=== PATIENT | female | born 1970 | race Caucasian/White ===

== ENCOUNTER 2017-02-27 21:14 | Outpatient (CLI) | payer MEDICAID | END 2017-02-27 21:15 | disposition critical access hospital (66) | LOC: EMS 21:14 | PROVIDERS: ATTEND Surgery | DX: R10.12 Left upper quadrant pain (principal) | CPT/HCPCS: A0425; A0429 ==

== ENCOUNTER 2017-02-27 21:50 | Emergency (ER) | payer MEDICAID ==
[2017-02-27 22:27] LABS: BILIRUBIN,URINE NEGATIVE (NEGATIVE); PH,URINE 5.5 PH (5.0-7.5)
[2017-02-27 22:28] LABS: ALBUMIN/GLOBULIN RATIO 1.2 (1.0-2.2); BILIRUBIN,TOTAL 0.3 mg/dL (0.2-1.0); CALCIUM 9.2 mg/dL (8.5-10.3); CREATININE 0.8 mg/dL (0.4-1.0); POTASSIUM 3.8 mmol/L (3.5-5.0); TOTAL PROTEIN 7.1 g/dL (6.7-8.2)
[2017-02-27 22:31] LABS: UA CHARGE (STRIP ONLY) YES; UR CULTURE IF IND NOT INDICATED
--- NOTE | 2017-02-27 23:11 | XRAY Preliminary Report ---
Exam: XR Chest 2 View PA/LAT IMPRESSION: Normal 2-view chest radiography. [facility] SITE ID: [id number]
--- NOTE | 2017-02-27 23:14 | XRAY Report ---
EXAM: CHEST RADIOGRAPHY EXAM DATE: 02/27/2017 10:52 PM. CLINICAL HISTORY: Left sided chest pain. COMPARISON: 09/03/2014 TECHNIQUE: 2 views. FINDINGS: Lungs/Pleura: No focal opacities evident. No pleural effusion. No pneumothorax. Normal volumes. Mediastinum: Heart and mediastinal contours are unremarkable. Other: None. IMPRESSION: Normal 2-view chest radiography. [facility] Referring Provider Line: [phone] SITE ID: [id number]
[2017-02-27 23:41] LABS: BASOPHILS # (AUTO) 0.1 10^3/uL (0.0-0.1); EOSINOPHILS # (AUTO) 0.2 10^3/uL (0.0-0.7); EOSINOPHILS % (AUTO) 2.1 %; HCT - HEMATOCRIT 34.9 % (37.0-47.0); HGB - HEMOGLOBIN 11.9 g/dL (12.0-16.0); LYMPHOCYTES # (AUTO) 2.7 10^3/uL (1.5-3.5); MEAN CORPUSCULAR HEMOGLOBIN 33.6 pg (27.0-31.0); MEAN CORPUSCULAR HGB CONC 34.1 g/dL (32.0-36.0); MEAN CORPUSCULAR VOLUME 98.7 fL (81.0-99.0); MEAN PLATELET VOLUME 8.4 fL (7.9-10.8); MONOCYTES # (AUTO) 0.5 10^3/uL (0.0-1.0); MONOCYTES % (AUTO) 5.9 %; NEUTROPHILS # (AUTO) 5.7 10^3/uL (1.5-6.6); NUCLEATED RED BLOOD CELLS AUTO 0.1 /100WBC; RED BLOOD COUNT 3.54 10^6/uL (4.20-5.40); RED CELL DISTRIBUTION WIDTH 13.4 % (12.0-15.0); UNCORRECTED WHITE BLOOD COUNT 9.3 x10^3/uL; WHITE BLOOD COUNT 9.3 x10^3/uL (4.8-10.8)
--- NOTE | 2017-02-28 00:03 | ED Physician Documentation ---
PD HPI ABD PAIN - Stated complaint Stated Complaint: CHEST/ABD PAIN - Chief complaint Chief Complaint: Abd Pain - History obtained from History obtained from: Patient, EMS - History of Present Illness Timing - onset: How many hours ago (2) Timing - details: Abrupt onset Quality: Sharp, Stabbing Location: LUQ Associated symptoms: No: Fever, Nausea, Vomiting, Diarrhea, Constipation, Dysuria, Hematuria, Chest pain, Near syncope / syncope Similar symptoms before: Has not had sx before Recently seen: Not recently seen - Additional information Additional information: Patient is a 47 year old female with a history of alcohol abuse who is presenting to the emergency department for luq abdominal pain. Patient states that it started at rest. she reports that it was sharp in nature. Patient reports that she called ems and when she got in the ambulance the pain had resolved. Upon initial evaluation in the emergency department patient was asymptomatic. Review of Systems Constitutional: denies: Fever, Chills Eyes: denies: Loss of vision, Decreased vision Ears: denies: Ear pain, Drainage/discharge Nose: denies: Rhinorrhea / runny nose, Congestion Throat: denies: Oral lesions / sores, Sore throat Cardiac: denies: Chest pain / pressure, Palpitations, Calf pain Respiratory: denies: Dyspnea, Cough, Wheezing GI: reports: Abdominal Pain : denies: Dysuria, Frequency, Unable to Void, Hematuria, Discharge, Vaginal bleeding Skin: denies: Rash, Lesions Musculoskeletal: denies: Neck pain, Back pain, Extremity pain Neurologic: denies: Generalized weakness, Focal weakness, Numbness, Difficulty speaking Psychiatric: denies: Depressed, Suicidal Immunocompromised: denies: Immunocompromised PD PAST MEDICAL HISTORY - Past Medical History Past Medical History: Yes Cardiovascular: Hypertension, High cholesterol Respiratory: None Endocrine/Autoimmune: Type 2 diabetes GI: GERD : None HEENT: None Psych: Depression, Anxiety Musculoskeletal: None Derm: None - Past Surgical History 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 HEENT: Rhinoplasty - Present Medications Home Medications: Ambulatory Orders Medication Instructions Recorded Confirmed Pantoprazole Sodium [Protonix] 40 mg PO DAILY 03/23/14 02/27/17 LORazepam [Ativan] 1 mg PO ONCE PRN 09/03/14 02/27/17 busPIRone [Buspar] 10 mg PO BID 09/03/14 02/27/17 Losartan [Cozaar] 100 mg PO DAILY 12/24/15 02/27/17 Metformin HCl 1,000 mg PO BID 12/24/15 02/27/17 Ibuprofen [Motrin] 400 mg PO Q6H PRN #20 tablet 08/08/16 02/27/17 cloNIDine [Catapres] 0.1 mg PO BID 08/13/16 02/27/17 - Allergies Allergies/Adverse Reactions: Allergies Allergy/AdvReac Type Severity Reaction Status Date / Time No Known Drug Allergies Allergy Verified 08/08/16 14:50 - Social History Does the pt smoke?: No Smoking Status: Never smoker Does the pt drink ETOH?: Yes ETOH Use: Wine Does the pt have substance abuse?: No - Immunizations Immunizations are current?: Yes - POLST Patient has POLST: No PD ED PE NORMAL - Vitals Vital signs reviewed: Yes - General General: Alert and oriented X 3, No acute distress - HEENT HEENT: Atraumatic, PERRL - Neck Neck: Supple, no meningeal sign, No JVD - Cardiac Cardiac: RRR, No murmur - Respiratory Respiratory: No respiratory distress, Clear bilaterally - Abdomen Abdomen: Soft - Derm Derm: Normal color, Warm and dry, No rash - Extremities Extremities: No deformity, No tenderness to palpate, No edema, No calf tenderness / cord - Neuro Neuro: Alert and oriented X 3, No motor deficit, No sensory deficit, Normal speech - Psych Psych: Normal mood, Normal affect PD ED PE EXPANDED - Abdomen Abdomen: Tender to palpation, LUQ. No: Distended, Rebound, Guarding Results - Vitals Vitals: Vital Signs - 24 hr 02/27/17 02/27/17 02/28/17 21:51 23:33 00:27 Temperature 37.0 C 37.3 C Heart Rate 89 78 82 Respiratory 16 19 16 Rate Blood Pressure 130/65 134/58 H 122/63 O2 Saturation 94 94 94 Oxygen O2 Source Room air - EKG (time done) 2158 Rate: Rate (enter#) (79) Rhythm: NSR [place]: Normal Intervals: Normal [place] QRS: Normal Ischemia: Normal ST segments - Labs Labs: Laboratory Tests 02/27/17 02/27/17 02/27/17 21:58 22:10 22:10 WBC RBC Hgb Hct MCV MCH MCHC RDW Plt Count MPV Neut # Lymph # [place] # Eos # Baso # Absolute Nucleated RBC Nucleated RBCs Sodium 138 Potassium 3.8 Chloride 102 Carbon Dioxide 22 Anion Gap 14.0 H BUN 9 Creatinine 0.8 Estimated GFR (MDRD) 77 L Glucose 203 H Calcium 9.2 Total Bilirubin 0.3 AST 62 H ALT 51 Alkaline Phosphatase 59 Troponin I < 0.04 B-Natriuretic Peptide Total Protein 7.1 Albumin 3.8 Globulin 3.3 Albumin/Globulin Ratio 1.2 Lipase 18 L Urine Color YELLOW Urine Clarity CLEAR Urine pH 5.5 Ur Specific [place] <=1.005 Urine Protein NEGATIVE Urine Glucose (UA) NEGATIVE Urine Ketones NEGATIVE Urine Occult Blood TRACE-INTA Urine Nitrite NEGATIVE Urine Bilirubin NEGATIVE Urine Urobilinogen 0.2 (NORMAL) Ur Leukocyte Esterase NEGATIVE Ur Microscopic Review NOT INDICATED Urine Culture Comments NOT INDICATED Ethyl Alcohol 111.4 02/27/17 02/27/17 22:10 23:31 WBC 9.3 RBC 3.54 L Hgb 11.9 L Hct 34.9 L MCV 98.7 MCH 33.6 H MCHC 34.1 RDW 13.4 Plt Count 203 MPV 8.4 Neut # 5.7 Lymph # 2.7 [place] # 0.5 Eos # 0.2 Baso # 0.1 Absolute Nucleated RBC 0.01 Nucleated RBCs 0.1 Sodium Potassium Chloride Carbon Dioxide Anion Gap BUN Creatinine Estimated GFR (MDRD) Glucose Calcium Total Bilirubin AST ALT Alkaline Phosphatase Troponin I B-Natriuretic Peptide 31 Total Protein Albumin Globulin Albumin/Globulin Ratio Lipase Urine Color Urine Clarity Urine pH Ur Specific [place] Urine Protein Urine Glucose (UA) Urine Ketones Urine Occult Blood Urine Nitrite Urine Bilirubin Urine Urobilinogen Ur Leukocyte Esterase Ur Microscopic Review Urine Culture Comments Ethyl Alcohol - Rads (name of study) chest x-ray Radiology: Final report received (within normal limits) PD MEDICAL DECISION MAKING - ED course Complexity details: reviewed old records, reviewed results, re-evaluated patient , considered differential, d/w patient ED course: Patient was seen and examined at bedside. patient was well appearing and denied any acute complaints. ekg was performed and was within normal limits. labs were drawn and urine was collected. chest x-ray was performed. Chest x- ray remained in normal limits. Patient's diagnostics were all within normal limits. Patient's heart score and perc score were both 0. Patient required no further work up at this time and was stable for discharge with outpatient follow up. Departure - Departure Disposition: 01 Home, Self Care Clinical Impression: Abdominal pain Condition: Good Instructions: ED Abdominal Pain Unkn Cause Follow-Up: primary,care provider [Other] Comments: Your diagnostics today were within normal limits. While it is difficult to say what caused your pain it is unlikely cardiac or infections. You can take motrin or tylenol as needed for pain. You can return to the emergency department at any time for new, worsening or uncontrollable symptoms. Discharge Date/Time: 02/28/17 00:27
[2017-02-28 00:30] VITALS: BP 122/63
== END 2017-02-28 00:27 | disposition home or self-care (01) ==
LOC: EDUNIT# → ED 21:50
DX: R10.12 Left upper quadrant pain (principal); I10 Essential (primary) hypertension; E11.9 Type 2 diabetes mellitus without complications; Z79.84 Long term (current) use of oral hypoglycemic drugs; E78.00 Pure hypercholesterolemia, unspecified; K21.9 Gastro-esophageal reflux disease without esophagitis
CPT/HCPCS: 36415; 71020; 80053; 80320; 81001; 81003; 83690; 83880; 84484; 85025; 87086; 93005; 93010; 99284

== ENCOUNTER 2017-03-30 19:09 | Outpatient (CLI) | payer MEDICAID | END 2017-03-30 19:10 | disposition EMS.NT | DX: R06.00 Dyspnea, unspecified (principal) ==

== ENCOUNTER 2017-04-06 15:45 | Outpatient (CLI) | payer MEDICAID ==
[2017-04-06 18:50] LABS: BASOPHILS % (AUTO) 0.5 %; EOSINOPHILS # (AUTO) 0.2 10^3/uL (0.0-0.7); EOSINOPHILS % (AUTO) 2.6 %; HCT - HEMATOCRIT 38.7 % (37.0-47.0); HGB - HEMOGLOBIN 12.9 g/dL (12.0-16.0); LYMPHOCYTES # (AUTO) 2.7 10^3/uL (1.5-3.5); LYMPHOCYTES % (AUTO) 30.7 %; MEAN CORPUSCULAR HEMOGLOBIN 33.5 pg (27.0-31.0); MEAN CORPUSCULAR HGB CONC 33.4 g/dL (32.0-36.0); MEAN CORPUSCULAR VOLUME 100.3 fL (81.0-99.0); MEAN PLATELET VOLUME 8.9 fL (7.9-10.8); MONOCYTES # (AUTO) 0.5 10^3/uL (0.0-1.0); MONOCYTES % (AUTO) 5.9 %; NEUTROPHILS # (AUTO) 5.3 10^3/uL (1.5-6.6); NEUTROPHILS % (AUTO) 60.3 %; RED BLOOD COUNT 3.85 10^6/uL (4.20-5.40); RED CELL DISTRIBUTION WIDTH 13.1 % (12.0-15.0); UNCORRECTED WHITE BLOOD COUNT 8.7 x10^3/uL; WHITE BLOOD COUNT 8.7 x10^3/uL (4.8-10.8)
[2017-04-06 19:30] LABS: ALBUMIN/GLOBULIN RATIO 1.2 (1.0-2.2); BILIRUBIN,TOTAL 0.5 mg/dL (0.2-1.0); BUN - BLOOD UREA NITROGEN 13 mg/dL (6-20); CALCIUM 9.5 mg/dL (8.5-10.3); CARBON DIOXIDE - CO2 27 mmol/L (21-32); CHLORIDE 100 mmol/L (101-111); CREATININE 0.7 mg/dL (0.4-1.0); GFR - MDRD 90 (>89); GLUCOSE 139 mg/dL (70-100); IRON 63 ug/dL (28-170); SODIUM 136 mmol/L (135-145); TOTAL IRON BINDING CAPACITY 417 ug/dL (250-450); TOTAL PROTEIN 7.5 g/dL (6.7-8.2); TRANSFERRIN 298 mg/dL (192-382)
[2017-04-06 19:45] LABS: THYROID STIMULATING HORMONE 2.76 uIU/mL (0.34-5.60)
[2017-04-06 20:03] LABS: HEMOGLOBIN A1C 0.84 g/dL
== END 2017-04-06 15:46 | disposition home or self-care (01) ==
LOC: LAB.F 15:45
PROVIDERS: ATTEND Nurse Practitioner Family
DX: E10.9 Type 1 diabetes mellitus without complications (principal)
CPT/HCPCS: 36415; 80053; 82043; 82607; 83036; 83540; 84443; 84466; 85025

== ENCOUNTER 2017-06-23 13:05 | Outpatient (CLI) | payer MEDICAID | END 2017-06-23 13:06 | disposition EMS.NT | LOC: EMS 13:05 | PROVIDERS: ATTEND Surgery | DX: R42 Dizziness and giddiness (principal); R53.1 Weakness; R07.1 Chest pain on breathing ==

== ENCOUNTER 2017-06-27 13:59 | Outpatient (CLI) | payer MEDICAID ==
[2017-06-27 18:08] LABS: BASOPHILS % (AUTO) 0.5 %; HGB - HEMOGLOBIN 13.8 g/dL (12.0-16.0); LYMPHOCYTES % (AUTO) 14.9 %; MEAN CORPUSCULAR HEMOGLOBIN 31.7 pg (27.0-31.0); MEAN PLATELET VOLUME 8.4 fL (7.9-10.8); MONOCYTES % (AUTO) 3.1 %; NEUTROPHILS % (AUTO) 81.5 %; RED BLOOD COUNT 4.37 10^6/uL (4.20-5.40); RED CELL DISTRIBUTION WIDTH 12.9 % (12.0-15.0)
[2017-06-27 18:52] LABS: CALCIUM 9.6 mg/dL (8.5-10.3); CREATININE 0.9 mg/dL (0.4-1.0); POTASSIUM 4.7 mmol/L (3.5-5.0)
[2017-06-27 19:37] LABS: BAND NEUTROPHILS % (MANUAL) 3 %; BASOPHILS % (MANUAL) 1 %; LYMPHOCYTES % (MANUAL) 13 %; NEUTROPHILS % (MANUAL) 79 %; NP AUTO DIFFERENTIAL? YES; NP MAN DIFFERENTIAL? NO; PLATELET ESTIMATE, MANUAL NORMAL (130-450,000) (NORMAL)
[2017-06-27 20:33] LABS: HEMOGLOBIN A1C 0.85 g/dL
== END 2017-06-27 14:00 | disposition home or self-care (01) ==
LOC: RT.S 13:59
PROVIDERS: ATTEND Nurse Practitioner Family
DX: I10 Essential (primary) hypertension (principal); R07.89 Other chest pain; E11.65 Type 2 diabetes mellitus with hyperglycemia; R06.02 Shortness of breath
CPT/HCPCS: 36415; 80048; 83036; 85025; 85651; 93005

== ENCOUNTER 2017-06-27 23:10 | Outpatient (CLI) | payer MEDICAID | END 2017-06-27 23:11 | disposition critical access hospital (66) | LOC: EMS 23:10 | PROVIDERS: ATTEND Surgery | DX: R07.89 Other chest pain (principal) | CPT/HCPCS: A0425; A0427 ==

== ENCOUNTER 2017-06-27 23:47 | Emergency (ER) | payer MEDICAID ==
[2017-06-27] MEDS ORDERED: ALBUTEROL NEB 2.5 MG/3 ML INH STA (23:58)
[2017-06-28] MEDS ORDERED: ALBUTEROL NEB 2.5 MG/3 ML INH ONE (00:29)
[2017-06-28 00:36] LABS: BASOPHILS # (AUTO) 0.1 10^3/uL (0.0-0.1); BASOPHILS % (AUTO) 0.7 %; EOSINOPHILS % (AUTO) 0.1 %; HGB - HEMOGLOBIN 13.5 g/dL (12.0-16.0); LYMPHOCYTES # (AUTO) 2.6 10^3/uL (1.5-3.5); LYMPHOCYTES % (AUTO) 15.5 %; MEAN CORPUSCULAR HEMOGLOBIN 30.8 pg (27.0-31.0); MEAN CORPUSCULAR HGB CONC 32.9 g/dL (32.0-36.0); MEAN CORPUSCULAR VOLUME 93.6 fL (81.0-99.0); MEAN PLATELET VOLUME 7.9 fL (7.9-10.8); MONOCYTES # (AUTO) 0.7 10^3/uL (0.0-1.0); MONOCYTES % (AUTO) 3.9 %; NEUTROPHILS # (AUTO) 13.6 10^3/uL (1.5-6.6); NEUTROPHILS % (AUTO) 79.8 %; RED BLOOD COUNT 4.38 10^6/uL (4.20-5.40); RED CELL DISTRIBUTION WIDTH 12.6 % (12.0-15.0); UNCORRECTED WHITE BLOOD COUNT 17.1 x10^3/uL; WHITE BLOOD COUNT 17.1 x10^3/uL (4.8-10.8)
--- NOTE | 2017-06-28 00:40 | XRAY Preliminary Report ---
Exam: XR Chest 2 View PA/LAT IMPRESSION: Normal 2-view chest radiography. [facility] SITE ID: [id number]
--- NOTE | 2017-06-28 00:42 | XRAY Report ---
EXAM: CHEST RADIOGRAPHY EXAM DATE: 06/28/2017 12:18 AM. CLINICAL HISTORY: Chest pain, leukocytosis. COMPARISON: None. TECHNIQUE: 2 views. FINDINGS: Lungs/Pleura: No focal opacities evident. No pleural effusion. No pneumothorax. Normal volumes. Mediastinum: Heart and mediastinal contours are unremarkable. Other: None. IMPRESSION: Normal 2-view chest radiography. [facility] Referring Provider Line: [phone] SITE ID: [id number]
[2017-06-28] MEDS ORDERED: AZITHROMYCIN 250 MG TABLET PO STA (00:47)
[2017-06-28 00:48] LABS: ALBUMIN/GLOBULIN RATIO 1.1 (1.0-2.2); BILIRUBIN,TOTAL 0.6 mg/dL (0.2-1.0); CREATININE 0.8 mg/dL (0.4-1.0); POTASSIUM 4.8 mmol/L (3.5-5.0); TOTAL PROTEIN 7.8 g/dL (6.7-8.2)
[2017-06-28] MEDS ORDERED: AZITHROMYCIN 250 MG TABLET PO ONE (00:53)
[2017-06-28] MEDS ORDERED: KETOROLAC 60 MG/2 ML VIAL IVP STA (01:10)
[2017-06-28] MEDS ORDERED: SODIUM CHLORIDE FLUSH 0.9% 10 ML SYRINGE IVP ONE (01:17)
[2017-06-28] MEDS ORDERED: KETOROLAC 15 MG/ML VIAL ONE (01:17)
--- NOTE | 2017-06-28 01:32 | ED Physician Documentation ---
PD HPI CHEST PAIN - Stated complaint Stated Complaint: CP - Chief complaint Chief Complaint: Cardiac - History obtained from History obtained from: Patient, EMS - History of Present Illness Timing - onset: How many weeks ago (2) Timing - onset during: Rest Timing - duration: Weeks Timing - details: Gradual onset, Still present Quality: Pressure, Tightness, Aching Location: Substernal, Left chest, Right chest Improved by: Nothing Associated symptoms: No: Shortness of air, Diaphoresis, Nausea Similar symptoms before: Work up / diagnostics, Treatment, Follow up Recently seen: Clinic - Additional information Additional information: Patient is a 47 year old female who is presenting to the emergency department for chest pain. Patient states that it has been going on for two weeks and it has been constant. patient denies any exertional component, or aggravating factors but states that it is alleviated by inhalers. Patient saw her pmd today and the work up was within normal limits. Patient states that she has an echo scheduled tomorrow but her chest continued to have pressure. Patient called ems who gave four aspirin and nitro with no relief. Patient did say sh had some relief from the morphine. Review of Systems Constitutional: reports: Chills. denies: Fever Eyes: denies: Decreased vision, Photophobia Ears: denies: Ear pain, Drainage/discharge Nose: reports: Rhinorrhea / runny nose, Congestion, Sinus pressure / pain Throat: denies: Oral lesions / sores, Sore throat Cardiac: reports: Chest pain / pressure. 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 HEENT: Rhinoplasty - Present Medications Home Medications: Ambulatory Orders Medication Instructions Recorded Confirmed Pantoprazole Sodium [Protonix] 40 mg PO DAILY 03/23/14 02/27/17 LORazepam [Ativan] 1 mg PO ONCE PRN 09/03/14 02/27/17 busPIRone [Buspar] 10 mg PO BID 09/03/14 02/27/17 Losartan [Cozaar] 100 mg PO DAILY 12/24/15 02/27/17 Metformin HCl 1,000 mg PO BID 12/24/15 02/27/17 Ibuprofen [Motrin] 400 mg PO Q6H PRN #20 tablet 08/08/16 02/27/17 cloNIDine [Catapres] 0.1 mg PO BID 08/13/16 02/27/17 - Allergies Allergies/Adverse Reactions: Allergies Allergy/AdvReac Type Severity Reaction Status Date / Time No Known Drug Allergies Allergy Verified 06/28/17 00:00 - Social History Does the pt smoke?: No Smoking Status: Never smoker Does the pt drink ETOH?: Yes Does the pt have substance abuse?: No - Immunizations Immunizations are current?: Yes - POLST Patient has POLST: No PD ED PE NORMAL - Vitals Vital signs reviewed: Yes - General General: Alert and oriented X 3, Well developed/nourished - HEENT HEENT: Atraumatic, Moist mucous membranes - Neck Neck: Supple, no meningeal sign, No JVD - Cardiac Cardiac: RRR, No murmur, No rub - Respiratory Respiratory: No respiratory distress, Clear bilaterally - Abdomen Abdomen: Soft, Non tender, Non distended - Derm Derm: Normal color, Warm and dry, No rash - Extremities Extremities: No edema, No calf tenderness / cord - Neuro Neuro: Alert and oriented X 3, No motor deficit, No sensory deficit, Normal speech - Psych Psych: No: Normal mood, Normal affect PD ED PE EXPANDED - HEENT HEENT: Nasal congestion - Cardiac Cardiac: Chest wall TTP (tenderness to palpation of chest wall, bilaterally) - Psych Psych: Tearful. No: Depressed, Suicidal Results - Vitals Vitals: Vital Signs - 24 hr 06/27/17 06/28/17 06/28/17 23:56 00:07 00:29 Temperature 37.0 C Heart Rate 77 77 72 Respiratory 20 16 14 Rate Blood Pressure 178/113 H 173/80 H O2 Saturation 96 95 06/28/17 06/28/17 00:54 01:39 Temperature Heart Rate 80 82 Respiratory 17 14 Rate Blood Pressure 145/54 H O2 Saturation 94 96 Oxygen O2 Source Room air - EKG (time done) 0002 Rate: Rate (enter#) (80) Rhythm: NSR [place]: LAD Intervals: Normal [place] QRS: Normal Ischemia: Normal ST segments Compare to prior EKG: Unchanged from prior EKG - Labs Labs: Laboratory Tests 10/12/1006/28/17 06/28/17 00:06 00:29 00:29 WBC 17.1 H RBC 4.38 Hgb 13.5 Hct 41.0 MCV 93.6 MCH 30.8 MCHC 32.9 RDW 12.6 Plt Count 370 MPV 7.9 Neut # 13.6 H Lymph # 2.6 [place] # 0.7 Eos # 0.0 Baso # 0.1 Absolute Nucleated RBC 0.01 Nucleated RBC % 0.0 Sodium Potassium Chloride Carbon Dioxide Anion Gap BUN Creatinine Estimated GFR (MDRD) Glucose Calcium Total Bilirubin AST ALT Alkaline Phosphatase Troponin I < 0.04 Total Protein Albumin Globulin Albumin/Globulin Ratio Lipase Urine Color YELLOW Urine Clarity CLEAR Urine pH 6.0 Ur Specific [place] <=1.005 Urine Protein NEGATIVE Urine Glucose (UA) NEGATIVE Urine Ketones NEGATIVE Urine Occult Blood NEGATIVE Urine Nitrite NEGATIVE Urine Bilirubin NEGATIVE Urine Urobilinogen 0.2 (NORMAL) Ur Leukocyte Esterase NEGATIVE Ur Microscopic Review NOT INDICATED Urine Culture Comments NOT INDICATED 06/28/17 00:29 WBC RBC Hgb Hct MCV MCH MCHC RDW Plt Count MPV Neut # Lymph # [place] # Eos # Baso # Absolute Nucleated RBC Nucleated RBC % Sodium 133 L Potassium 4.8 Chloride 98 L Carbon Dioxide 23 Anion Gap 12.0 BUN 16 Creatinine 0.8 Estimated GFR (MDRD) 77 L Glucose 175 H Calcium 10.0 Total Bilirubin 0.6 AST 23 ALT 24 Alkaline Phosphatase 78 Troponin I Total Protein 7.8 Albumin 4.1 Globulin 3.7 Albumin/Globulin Ratio 1.1 Lipase 23 Urine Color Urine Clarity Urine pH Ur Specific [place] Urine Protein Urine Glucose (UA) Urine Ketones Urine Occult Blood Urine Nitrite Urine Bilirubin Urine Urobilinogen Ur Leukocyte Esterase Ur Microscopic Review Urine Culture Comments - Rads (name of study) chest x-ray Radiology: Final report received (no acute disease process) PD MEDICAL DECISION MAKING - ED course Complexity details: reviewed old records, reviewed results, re-evaluated patient , considered differential, d/w patient ED course: Patient was seen and examined at bedside. ekg was performed which was within normal limits. labs were drawn and chest x-ray was ordered. patient's diagnostics were within normal limits aside from an elevated leukocytosis which was likely secondary to the steroids and bronchitis. bedside echo showed no effusion. Patient was PERC, HEART and [place] negative. Patient required no further work up and was stable for discharge with outpatient follow up. Departure - Departure Disposition: 01 Home, Self Care Clinical Impression: Chest wall pain Condition: Good Instructions: ED Chest Pain Costochondritis Follow-Up: primary,care provider [Other] - Tomorrow Comments: Your diagnostics today were within normal limits. there is no sign of cardiac or pulmonary disease. You did have an elevated white blood cell count which could be secondary to infection and steroid use. You should follow up with your doctor tomorrow for your echocardiogram. You can continue with motrin or tylenol as needed for pain. you may return to the emergency department at any time for new, worsening or uncontrollable symptoms. Discharge Date/Time: 06/28/17 02:10
[2017-06-28 01:40] VITALS: BP 145/54
[2017-06-28] MEDS ORDERED: LIDOCAINE PATCH 5% TOP STA (01:43)
[2017-06-28] MEDS ORDERED: LIDOCAINE PATCH 5% TOP ONE (01:50)
[2017-06-28 02:03] LABS: BILIRUBIN,URINE NEGATIVE (NEGATIVE)
[2017-06-28 02:04] LABS: UA CHARGE (STRIP ONLY) YES; UR CULTURE IF IND NOT INDICATED
== END 2017-06-28 02:10 | disposition home or self-care (01) ==
LOC: EDUNIT# → ED 23:47
DX: R07.89 Other chest pain (principal); D72.829 Elevated white blood cell count, unspecified; E78.00 Pure hypercholesterolemia, unspecified; I10 Essential (primary) hypertension; E11.65 Type 2 diabetes mellitus with hyperglycemia; R06.02 Shortness of breath; R05 Cough; Z79.84 Long term (current) use of oral hypoglycemic drugs
CPT/HCPCS: 36415; 71020; 80048; 80053; 81003; 83036; 83690; 84484; 85025; 85651; 93005; 93306; 94640; 96374; 99283; 99284; A9270; J7613; 81001; 87086

== ENCOUNTER 2017-06-28 12:06 | Outpatient (CLI) | payer MEDICAID | END 2017-06-28 12:07 | disposition home or self-care (01) | LOC: DI 12:06 | PROVIDERS: ATTEND Nurse Practitioner Family | DX: R07.89 Other chest pain (principal); R05 Cough; R06.02 Shortness of breath; I51.7 Cardiomegaly | CPT/HCPCS: 93306 ==

== ENCOUNTER 2017-07-04 08:41 | Outpatient (CLI) | payer MEDICAID | END 2017-07-04 08:42 | disposition critical access hospital (66) | LOC: EMS 08:41 | PROVIDERS: ATTEND Surgery | DX: R42 Dizziness and giddiness (principal); I10 Essential (primary) hypertension | CPT/HCPCS: A0425; A0429 ==

== ENCOUNTER 2017-07-04 09:06 | Emergency (ER) | payer MEDICAID ==
[2017-07-04] MEDS ORDERED: SODIUM CHLORIDE 0.9% 1,000 ML IV ONE ×2 (09:18→12:23)
--- NOTE | 2017-07-04 09:20 | ED Physician Documentation ---
History of Present Illness - Stated complaint Stated Complaint: HTN/DIZZY - Chief complaint Chief Complaint: General - History obtained from History obtained from: Patient - History of Present Illness Timing: How many days ago (3) - Additonal information Additional information: 47-year-old female has been having a problem with hypertension and today she went to the clinic feeling quite dizzy. She was seen in the clinic and sent to the emergency department for further evaluation.The patient states that she has been drinking a lot of fluids and urinating a lot. She states that she does not feel well. She has recently been treated for URI with azithromycin and a course of prednisone. She has finished the prednisone. She states the URI is slightly better she continues to have symptoms in her chest. Review of Systems Constitutional: reports: Fatigue. denies: Fever, Chills Eyes: denies: Decreased vision Ears: denies: Ear pain Nose: denies: Congestion Throat: denies: Sore throat Cardiac: reports: Chest pain / pressure. denies: Palpitations Respiratory: denies: Dyspnea, Cough GI: denies: Abdominal Pain, Nausea, Vomiting : denies: Dysuria, Frequency Skin: denies: Rash Musculoskeletal: denies: Neck pain, Back pain, Extremity pain Neurologic: reports: Generalized weakness, Near syncope. 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 HEENT: Rhinoplasty - Present Medications Home Medications: Ambulatory Orders Medication Instructions Recorded Confirmed Pantoprazole Sodium [Protonix] 40 mg PO DAILY 03/23/14 07/04/17 busPIRone [Buspar] 10 mg PO BID 09/03/14 07/04/17 Losartan [Cozaar] 100 mg PO DAILY 12/24/15 07/04/17 Metformin HCl 1,000 mg PO BID 12/24/15 07/04/17 Ibuprofen [Motrin] 400 mg PO Q6H PRN #20 tablet 08/08/16 07/04/17 Disulfiram 1 tab PO DAILY 07/04/17 07/04/17 Fluoxetine HCl 1 cap PO DAILY 07/04/17 07/04/17 Gabapentin [Neurontin] 5 cap PO DAILY 07/04/17 07/04/17 traZODone [Desyrel] 2 tab PO DAILY 07/04/17 07/04/17 - Allergies Allergies/Adverse Reactions: Allergies Allergy/AdvReac Type Severity Reaction Status Date / Time No Known Drug Allergies Allergy Verified 07/04/17 09:18 - Social History Does the pt smoke?: No Smoking Status: Never smoker Does the pt drink ETOH?: Yes Does the pt have substance abuse?: No - Immunizations Immunizations are current?: Yes - POLST Patient has POLST: No PD ED PE NORMAL - Vitals Vital signs reviewed: Yes (Hypertensive) - General General: No acute distress, Well developed/nourished, Other (The patient has a vacant stare and is withdrawn.) - HEENT HEENT: Atraumatic, PERRL, EOMI, Other (Dry mucous membranes) - Neck Neck: Supple, no meningeal sign, No bony TTP - Cardiac Cardiac: RRR, No murmur - Respiratory Respiratory: No respiratory distress, Clear bilaterally - Abdomen Abdomen: Soft, Non tender - Back Back: No CVA TTP, No spinal TTP - Derm Derm: Normal color, Warm and dry, No rash - Extremities Extremities: No deformity, No edema - Neuro Neuro: No motor deficit, No sensory deficit - Psych Psych: Normal mood, Other (Affect is flat) Results - Vitals Vitals: Vital Signs - 24 hr 07/04/17 07/04/17 07/04/17 09:13 09:15 09:45 Temperature 36.3 C L Heart Rate 82 63 64 Respiratory 15 14 13 Rate Blood Pressure 184/91 H 191/95 H 184/86 H O2 Saturation 98 98 97 07/04/17 07/04/17 07/04/17 10:20 11:19 11:26 Temperature Heart Rate 66 62 Respiratory 15 13 Rate Blood Pressure 168/90 H 157/66 H O2 Saturation 97 97 07/04/17 07/04/17 07/04/17 12:58 13:38 14:02 Temperature Heart Rate 64 63 63 Respiratory 14 16 11 L Rate Blood Pressure 150/57 H 144/73 H 182/87 H O2 Saturation 98 97 96 Oxygen O2 Source Room air - EKG (time done) 0946 Rate: Rate (enter#) (69) QRS: LVH (on voltage criteria in limb leads. ), Low voltage (precordial leads ) Compare to prior EKG: Unchanged from prior EKG (06-28-2017) Computer interpretation: Disagree with computer (I am unable to see q waves ) - Labs Labs: Laboratory Tests 07/04/17 07/04/17 07/04/17 09:40 09:40 09:40 WBC 13.7 H RBC 4.51 Hgb 14.0 Hct 41.8 MCV 92.5 MCH 31.0 MCHC 33.5 RDW 12.4 Plt Count 320 MPV 8.0 Neut # 9.7 H Lymph # 3.1 [place] # 0.7 Eos # 0.1 Baso # 0.2 H Absolute Nucleated RBC 0.00 Nucleated RBC % 0.0 Sodium 136 Potassium 4.0 Chloride 101 Carbon Dioxide 24 Anion Gap 11.0 BUN 11 Creatinine 0.8 Estimated GFR (MDRD) 77 L Glucose 134 H Calcium 9.9 Total Bilirubin 0.4 AST 20 ALT 24 Alkaline Phosphatase 76 Troponin I < 0.04 Total Protein 7.9 Albumin 4.2 Globulin 3.7 Albumin/Globulin Ratio 1.1 Lipase 22 Urine Color Urine Clarity Urine pH Ur Specific [place] Urine Protein Urine Glucose (UA) Urine Ketones Urine Occult Blood Urine Nitrite Urine Bilirubin Urine Urobilinogen Ur Leukocyte Esterase Ur Microscopic Review Urine Culture Comments Ethyl Alcohol < 5.0 07/04/17 11:00 WBC RBC Hgb Hct MCV MCH MCHC RDW Plt Count MPV Neut # Lymph # [place] # Eos # Baso # Absolute Nucleated RBC Nucleated RBC % Sodium Potassium Chloride Carbon Dioxide Anion Gap BUN Creatinine Estimated GFR (MDRD) Glucose Calcium Total Bilirubin AST ALT Alkaline Phosphatase Troponin I Total Protein Albumin Globulin Albumin/Globulin Ratio Lipase Urine Color LIGHT YELLOW Urine Clarity CLEAR Urine pH 6.0 Ur Specific [place] <=1.005 Urine Protein NEGATIVE Urine Glucose (UA) NEGATIVE Urine Ketones NEGATIVE Urine Occult Blood NEGATIVE Urine Nitrite NEGATIVE Urine Bilirubin NEGATIVE Urine Urobilinogen 0.2 (NORMAL) Ur Leukocyte Esterase NEGATIVE Ur Microscopic Review NOT INDICATED Urine Culture Comments NOT INDICATED Ethyl Alcohol - Rads (name of study) 2 veiw chest Radiology: Prelim report reviewed (Impression: No consolidation evident.), EMP read indepedently, See rad report Procedures - IVC sono (time) 0915 Bedside IVC sono: IVC measures (cm) (0.62), IVC collapsed c insp (cm) (complete) , Significant dehydration PD MEDICAL DECISION MAKING - ED course Complexity details: reviewed results, re-evaluated patient, considered differential, d/w patient, d/w family ED course: 47-year-old female with hypertension and dizziness is found to be significantly dehydrated. She does have a history of diabetes. She is administered 2 L of normal saline with return of the IVC to normal parameters. I suspect the steroid she was taking for her cough was culprit in the dehydration by diabetic diuresis. Departure - Departure Disposition: 01 Home, Self Care Clinical Impression: Dehydration Condition: Stable Instructions: ED Dehydration Follow-Up: Farideh Paulson ARNP [Primary Care Provider] -
[2017-07-04 09:50] LABS: BASOPHILS # (AUTO) 0.2 10^3/uL (0.0-0.1); BASOPHILS % (AUTO) 1.4 %; EOSINOPHILS # (AUTO) 0.1 10^3/uL (0.0-0.7); EOSINOPHILS % (AUTO) 0.5 %; HCT - HEMATOCRIT 41.8 % (37.0-47.0); LYMPHOCYTES # (AUTO) 3.1 10^3/uL (1.5-3.5); LYMPHOCYTES % (AUTO) 22.4 %; MEAN CORPUSCULAR HGB CONC 33.5 g/dL (32.0-36.0); MEAN CORPUSCULAR VOLUME 92.5 fL (81.0-99.0); MONOCYTES # (AUTO) 0.7 10^3/uL (0.0-1.0); MONOCYTES % (AUTO) 4.8 %; NEUTROPHILS # (AUTO) 9.7 10^3/uL (1.5-6.6); NEUTROPHILS % (AUTO) 70.9 %; RED BLOOD COUNT 4.51 10^6/uL (4.20-5.40); RED CELL DISTRIBUTION WIDTH 12.4 % (12.0-15.0); UNCORRECTED WHITE BLOOD COUNT 13.7 x10^3/uL; WHITE BLOOD COUNT 13.7 x10^3/uL (4.8-10.8)
[2017-07-04 10:04] LABS: ALBUMIN/GLOBULIN RATIO 1.1 (1.0-2.2); BILIRUBIN,TOTAL 0.4 mg/dL (0.2-1.0); BUN - BLOOD UREA NITROGEN 11 mg/dL (6-20); CALCIUM 9.9 mg/dL (8.5-10.3); CARBON DIOXIDE - CO2 24 mmol/L (21-32); CHLORIDE 101 mmol/L (101-111); CREATININE 0.8 mg/dL (0.4-1.0); GFR - MDRD 77 (>89); GLUCOSE 134 mg/dL (70-100); LIPASE 22 U/L (22-51); SODIUM 136 mmol/L (135-145); TOTAL PROTEIN 7.9 g/dL (6.7-8.2)
--- NOTE | 2017-07-04 10:24 | XRAY Report ---
EXAM: CHEST RADIOGRAPHY EXAM DATE: 07/04/2017 10:09 AM. CLINICAL HISTORY: Chest pain for 2 weeks. COMPARISON: 06/28/2017. TECHNIQUE: 2 views. FINDINGS: Lungs/Pleura: No focal opacities evident. No pleural effusion. No pneumothorax. Normal volumes. Mediastinum: Heart and mediastinal contours are unremarkable. Other: None. IMPRESSION: No consolidation evident. [facility] Referring Provider Line: [phone] SITE ID: [id number]
[2017-07-04 11:11] LABS: BILIRUBIN,URINE NEGATIVE (NEGATIVE)
[2017-07-04 11:16] LABS: UA CHARGE (STRIP ONLY) YES; UR CULTURE IF IND NOT INDICATED
[2017-07-04 14:02] VITALS: BP 182/87
== END 2017-07-04 14:15 | disposition home or self-care (01) ==
LOC: EDUNIT# → ED 09:06
DX: E86.0 Dehydration (principal); I10 Essential (primary) hypertension; E78.00 Pure hypercholesterolemia, unspecified; E11.9 Type 2 diabetes mellitus without complications
CPT/HCPCS: 36415; 71020; 80053; 80320; 81001; 81003; 83690; 84484; 85025; 87086; 93005; 96360; 96361; 99284

== ENCOUNTER 2017-08-10 08:44 | Outpatient (CLI) | payer MEDICAID ==
--- NOTE | 2017-08-11 19:31 | Mammography Report ---
DIGITAL SCREENING MAMMOGRAM: 08/10/2017 CLINICAL INDICATION: A 47-year-old with history of late childbearing, family history of breast cance r for screening. COMPARISON: 07/2016, 05/2015, 04/2014. TECHNIQUE: Routine CC and MLO projections were obtained of the breasts. FINDINGS: Scattered fibroglandular tissue is present within the breasts. There are no dominant mass es, suspicious microcalcifications, or secondary signs of malignancy. In comparison to the previous studies, there are no significant changes. ASSESSMENT: NO MAMMOGRAPHIC EVIDENCE OF MALIGNANCY. NO SIGNIFICANT INTERVAL CHANGES. RECOMMENDATION: Screening mammography is recommended annually. BIRADS category 1 - negative. STANDARD QUALIFYING STATEMENTS 1. This examination was reviewed with the aid of Computed-Aided Detection (CAD). 2. A negative or benign imaging report should not delay biopsy if clinically suspicious findings are present. Consider surgical consultation if warranted. More than 5% of cancers are not identified b y imaging. 3. Dense breasts may obscure an underlying neoplasm. JOB #: [id number] EXT JOB #:[id number]
== END 2017-08-10 08:45 | disposition home or self-care (01) ==
LOC: DI.S 08:44
PROVIDERS: ATTEND Nurse Practitioner Family
DX: Z12.31 Encounter for screening mammogram for malignant neoplasm of breast (principal); Z80.3 Family history of malignant neoplasm of breast
CPT/HCPCS: 77067

== ENCOUNTER 2018-05-03 09:56 | Outpatient (CLI) | payer MEDICAID ==
[2018-05-03 17:41] LABS: ALBUMIN 4.5 g/dL (3.2-5.5); ALBUMIN/GLOBULIN RATIO 1.5 (1.0-2.2); BILIRUBIN,TOTAL 0.7 mg/dL (0.2-1.0); CALCIUM 11.3 mg/dL (8.5-10.3); CREATININE 0.8 mg/dL (0.4-1.0); TOTAL PROTEIN 7.6 g/dL (6.7-8.2)
[2018-05-03 18:05] LABS: HB2 TOTAL 14.7 g/dL; HEMOGLOBIN A1C 0.54 g/dL; HEMOGLOBIN A1C % 5.5 % (4.6-6.2)
== END 2018-05-03 09:57 | disposition home or self-care (01) ==
LOC: LAB.F 09:56
PROVIDERS: ATTEND Nurse Practitioner Family
DX: E11.41 Type 2 diabetes mellitus with diabetic mononeuropathy (principal)
CPT/HCPCS: 36415; 80053; 83036

== ENCOUNTER 2018-07-04 14:04 | Emergency (ER) | payer MEDICAID ==
[2018-07-04] MEDS ORDERED: ATENOLOL 25 MG TABLET PO STA (15:06)
[2018-07-04] MEDS ORDERED: oxyCODONE 5 MG TABLET PO STA (15:06)
--- NOTE | 2018-07-04 15:47 | ED Physician Documentation ---
History of Present Illness - Stated complaint Stated Complaint: MIGRAINE/HIGH BP - Chief complaint Chief Complaint: General - Additonal information Additional information: hx from pt hx HTN on losartan for same recently having elevated blood pressures and severe ERWIN with that no CP SOA NV no numbness weakness does not recall any specific wup for HTN such as renal artery imaging or test for pheo compliant with meds no head injury fever neck stiffness CO exposure etc seen exactly a year ago for similar sx - had labs CTH etc Review of Systems Constitutional: denies: Fever Eyes: reports: Photophobia. denies: Loss of vision Cardiac: denies: Chest pain / pressure Respiratory: denies: Dyspnea GI: denies: Abdominal Pain, Nausea, Vomiting : reports: Control (tibal ligation). denies: Now EGA Neurologic: reports: Headache. denies: Focal weakness Endocrine: denies: Easy bruising / bleeding PD PAST MEDICAL HISTORY - Past Medical History Cardiovascular: Hypertension, High cholesterol Respiratory: None Endocrine/Autoimmune: Type 2 diabetes GI: GERD TECHNOLOGY DEVELOPMENT INTERN: None : None HEENT: None Psych: Depression, Anxiety Musculoskeletal: None Derm: None - Past Surgical History Past Surgical History: Yes /TECHNOLOGY DEVELOPMENT INTERN: Tubal ligation HEENT: Rhinoplasty - Present Medications Home Medications: Ambulatory Orders Medication Instructions Recorded Confirmed Pantoprazole Sodium [Protonix] 40 mg PO DAILY 03/23/14 07/04/17 busPIRone [Buspar] 10 mg PO BID 09/03/14 07/04/17 Losartan [Cozaar] 100 mg PO DAILY 12/24/15 07/04/17 Metformin HCl 1,000 mg PO BID 12/24/15 07/04/17 Ibuprofen [Motrin] 400 mg PO Q6H PRN #20 tablet 08/08/16 07/04/17 Disulfiram 1 tab PO DAILY 07/04/17 07/04/17 Fluoxetine HCl 1 cap PO DAILY 07/04/17 07/04/17 Gabapentin [Neurontin] 5 cap PO DAILY 07/04/17 07/04/17 traZODone [Desyrel] 2 tab PO DAILY 07/04/17 07/04/17 - Allergies Allergies/Adverse Reactions: Allergies Allergy/AdvReac Type Severity Reaction Status Date / Time No Known Drug Allergies Allergy Verified 07/04/17 09:18 - Social History Does the pt smoke?: No Smoking Status: Never smoker Does the pt drink ETOH?: Yes Does the pt have substance abuse?: Yes Substance Use and Type: Marijuana - Immunizations Immunizations are current?: Yes - POLST Patient has POLST: No PD ED PE NORMAL - Vitals Vital signs reviewed: Yes - General General: Alert and oriented X 3 - HEENT HEENT: PERRL, EOMI, Other (diff to asses fundi 2/2 photophobia but brief glimpse before pt averted eyes due to discomfort was no papilledema, globes soft) - Neck Neck: Supple, no meningeal sign - Cardiac Cardiac: RRR - Respiratory Respiratory: No respiratory distress, Clear bilaterally - Neuro Neuro: Alert and oriented X 3, dental specialist 2-12 intact, No motor deficit, No sensory deficit Eye Opening: Spontaneous Motor: Obeys Commands Verbal: Oriented GCS Score: 15 Results - Vitals Vitals: Vital Signs - 24 hr 07/04/18 14:11 Temperature 36 C L Heart Rate 53 L Respiratory 18 Rate Blood Pressure 163/108 H O2 Saturation 99 Oxygen O2 Source Room air PD MEDICAL DECISION MAKING - ED course ED course: pt already on ARB so tried BB unfortunately the BB cause her BP to go higher and her HR to drop - so that will not be a safe option for the pt prob not CCB either will try HCTZ with HCTZ her BP did come down nicely and after toradol and zofran her ERWIN was much improved will dc has PMD appt tomorrow so would suggest HCTZ but defer to PMD to rx - Sepsis Event Vital Signs: Vital Signs - 24 hr 07/04/18 14:11 Temperature 36 C L Heart Rate 53 L Respiratory 18 Rate Blood Pressure 163/108 H O2 Saturation 99 Oxygen O2 Source Room air Departure - Departure Disposition: 01 Home, Self Care Clinical Impression: Hypertension Qualifiers: Hypertension type: unspecified Qualified Code(s): I10 - Essential (primary) hypertension Headache Qualifiers: Headache type: unspecified Headache chronicity pattern: acute headache In tractability: not intractable Qualified Code(s): R51 - Headache Condition: Good Instructions: ED Cephalgia Unspecified, ED Hypertension Conf Out Of Control Follow-Up: Farideh Paulson ARNP [Primary Care Provider] - Comments: Your blood pressure spiked very high today You are already on losartan - an angiotensin receptor dali You did not have a good response to adding atenolol - a beta dali - it did not help your blood pressure and caused your heart rate to dip low - so I would not suggest you take that class of medications in the future then we tried a diuretic called HCTZ and that did help. And either because of the blood pressure coming down or due to the pain medications your headache got better So I think it is safe for you to go home for now Please see your PMD tomorrow for a recheck - he/she may want to consider adding HCTZ to your daily meds to help control the blood pressure - if you do start taking HCTZ you will need to have your potassium and other electrolytes checked periodically Please also discuss with your PMD whether you need more testing to determine why your blood pressure spikes so high at times - maybe imaging of the renal arteries or labs to test for a pheochromocytoma Do not drive for the rest of today Return if worse
[2018-07-04] MEDS ORDERED: KETOROLAC 60 MG/2 ML VIAL IM STA (16:28)
[2018-07-04] MEDS ORDERED: hydroCHLOROthiazide 25 MG TABLET PO STA (16:28)
[2018-07-04] MEDS ORDERED: ONDANSETRON ODT 4 MG TABLET TL STA (16:28)
[2018-07-04 18:07] VITALS: BP 120/74
== END 2018-07-04 18:07 | disposition home or self-care (01) ==
LOC: ED 14:04
DX: I10 Essential (primary) hypertension (principal); R51 Headache; E11.9 Type 2 diabetes mellitus without complications; Z79.84 Long term (current) use of oral hypoglycemic drugs
CPT/HCPCS: 96372; 99283; A9270; Q0162

== ENCOUNTER 2018-07-05 12:26 | Outpatient (CLI) | payer MEDICAID ==
[2018-07-05 17:47] LABS: BASOPHILS % (AUTO) 0.4 %; EOSINOPHILS # (AUTO) 0.1 10^3/uL (0.0-0.7); EOSINOPHILS % (AUTO) 1.3 %; HGB - HEMOGLOBIN 13.1 g/dL (12.0-16.0); LYMPHOCYTES # (AUTO) 3.3 10^3/uL (1.5-3.5); LYMPHOCYTES % (AUTO) 28.5 %; MEAN CORPUSCULAR HEMOGLOBIN 32.6 pg (27.0-31.0); MEAN CORPUSCULAR HGB CONC 33.3 g/dL (32.0-36.0); MEAN PLATELET VOLUME 8.8 fL (7.9-10.8); MONOCYTES # (AUTO) 0.7 10^3/uL (0.0-1.0); MONOCYTES % (AUTO) 5.8 %; NEUTROPHILS # (AUTO) 7.5 10^3/uL (1.5-6.6); PLT - PLATELET COUNT 342 10^3/uL (130-450); RED BLOOD COUNT 4.02 10^6/uL (4.20-5.40); RED CELL DISTRIBUTION WIDTH 13.2 % (12.0-15.0); WHITE BLOOD COUNT 11.8 x10^3/uL (4.8-10.8)
[2018-07-05 18:01] LABS: ALBUMIN 4.1 g/dL (3.2-5.5); ALBUMIN/GLOBULIN RATIO 1.5 (1.0-2.2); BILIRUBIN,TOTAL 0.4 mg/dL (0.2-1.0); CALCIUM 9.1 mg/dL (8.5-10.3); CREATININE 0.9 mg/dL (0.4-1.0); TOTAL PROTEIN 6.9 g/dL (6.7-8.2)
[2018-07-05 18:08] LABS: THYROID STIMULATING HORMONE 0.77 uIU/mL (0.34-5.60)
== END 2018-07-05 12:27 | disposition home or self-care (01) ==
LOC: LAB.F 12:26
PROVIDERS: ATTEND Nurse Practitioner Family
DX: G43.909 Migraine, unspecified, not intractable, without status migrainosus (principal)
CPT/HCPCS: 36415; 80053; 82607; 84443; 85025

== ENCOUNTER 2018-07-23 18:43 | Outpatient (CLI) | payer MEDICAID | END 2018-07-23 18:44 | disposition short-term general hospital (02) | LOC: EMS 18:43 | PROVIDERS: ATTEND Surgery | DX: R51 Headache (principal) | CPT/HCPCS: A0170; A0425; A0429; A0999 ==

== ENCOUNTER 2019-05-30 08:44 | Emergency (ER) | payer MEDICAID ==
--- NOTE | 2019-05-30 09:05 | ED Physician Documentation ---
PD HPI LOWER EXT INJURY - Stated complaint Stated Complaint: ANKLE PX - Chief complaint Chief Complaint: Ext Problem - History obtained from History obtained from: Patient - History of Present Illness PD HPI LOW EXT INJURY LOCATION: Left, Foot Type of injury: Twist Timing - onset: Yesterday (she had fallen from scooter few days ago and struck anterior right knee. She says is getting better but was limping/walking abnormal due to it and twisted left foot because of it. Pain in left foot is main issue now.) Timing - duration: Days (1) Timing - details: Abrupt onset, Still present Worsened by: Moving, Palpating, Other (walking on it hurts significantly) Associated symptoms: Swelling. No: Weakness, Numbness Review of Systems Skin: denies: Abrasion (s), Laceration (s) Musculoskeletal: reports: Extremity swelling (left foot). denies: Back pain Neurologic: denies: Focal weakness, Numbness PD PAST MEDICAL HISTORY - Past Medical History Cardiovascular: Hypertension, High cholesterol Respiratory: None Endocrine/Autoimmune: Type 2 diabetes GI: GERD NURSE TRANSITIONAL: None : None HEENT: None Psych: Depression, Anxiety Musculoskeletal: None Derm: None - Past Surgical History Past Surgical History: Yes /NURSE TRANSITIONAL: Tubal ligation HEENT: Rhinoplasty - Present Medications Home Medications: Ambulatory Orders Medication Instructions Recorded Confirmed Pantoprazole Sodium [Protonix] 40 mg PO DAILY 03/23/14 07/04/17 busPIRone [Buspar] 10 mg PO BID 09/03/14 07/04/17 Losartan [Cozaar] 100 mg PO DAILY 12/24/15 07/04/17 Metformin HCl 1,000 mg PO BID 12/24/15 07/04/17 Ibuprofen [Motrin] 400 mg PO Q6H PRN #20 tablet 08/08/16 07/04/17 Disulfiram 1 tab PO DAILY 07/04/17 07/04/17 Fluoxetine HCl 1 cap PO DAILY 07/04/17 07/04/17 Gabapentin [Neurontin] 5 cap PO DAILY 07/04/17 07/04/17 traZODone [Desyrel] 2 tab PO DAILY 07/04/17 07/04/17 Hydrocodone/Acetaminophen [[place] 1 each PO Q6H PRN #20 tablet 05/30/19 5-325 Tablet] - Allergies Allergies/Adverse Reactions: Allergies Allergy/AdvReac Type Severity Reaction Status Date / Time No Known Drug Allergies Allergy Verified 07/04/17 09:18 - Social History Does the pt smoke?: No Smoking Status: Never smoker Does the pt drink ETOH?: Yes Does the pt have substance abuse?: Yes - Immunizations Immunizations are current?: Yes - POLST Patient has POLST: No PD ED PE NORMAL - Vitals Vital signs reviewed: Yes - General General: Alert and oriented X 3, No acute distress, Well developed/nourished - Derm Derm: Normal color, Warm and dry - Extremities Extremities: Other (abrasion right knee anteriorly without effusion nor bony tenderness. ROM of the knee is good, with just causing skin pain on flexion of the knee. Left foot with tenderness and swelling anteriorly on proximal portion of foot. The malleoli themselves are not tender. Normal color and cap refill in toes. ) - Neuro Neuro: No motor deficit, No sensory deficit Results - Vitals Vitals: Vital Signs - 24 hr 05/30/19 11:00 Heart Rate 74 Respiratory 16 Rate Blood Pressure 148/70 H O2 Saturation 99 Oxygen O2 Source Room air - Rads (name of study) left foot Radiology: Prelim report reviewed (no fractures), See rad report PD MEDICAL DECISION MAKING - ED course Complexity details: reviewed results (no fractures), re-evaluated patient (given the location of the injury, an aircast would not really immobilze the area well, so went with walking boot. Crutches for partial weight bearing for comfort. ), considered differential (sprain of foot versus fracture), d/w patient Departure - Departure Disposition: 01 Home, Self Care Clinical Impression: Abrasion, right knee, initial encounter Strain of left foot Qualifiers: Encounter type: initial encounter Qualified Code(s): S96.912A - Strain of unspecified muscle and tendon at ankle and foot level, left foot, initial encou nter Condition: Stable Record reviewed to determine appropriate education?: Yes Instructions: ED Sprain Foot Follow-Up: Marycruz Adkins ARNP [Primary Care Provider] - [facility] [Provider Group] Prescriptions: Hydrocodone/Acetaminophen [[place] 5-325 Tablet] 1 each PO Q6H PRN #20 tablet PRN Reason: Pain Comments: Your x-ray is normal so no obvious bony abdomen disease. Presume he had a tear of the ligament or muscle in the foot causing the swelling in bleeding. The swelling of the should decrease over several days to week and improve the pain quite a bit. The injury itself may take 3 or 4 weeks to fully heal up. Use the boot supporter for the foot and ankle when up and around for the next 2 or 3 weeks. Crutches initially for partial to no weightbearing as needed for comfort. Anti-inflammatories such as ibuprofen or naproxen 2-3 times a day for the next week. Add Tylenol or hydrocodone if needed for pain. Elevate ice and rest the foot often today to help reduce swelling. Follow-up with your primary care or orthopedics in about a week and a half to ensure its healing well along the way. Discharge Date/Time: 05/30/19 11:20
[2019-05-30] MEDS ORDERED: ACETAMINOPHEN 325 MG TABLET PO STA (09:27)
--- NOTE | 2019-05-30 10:18 | XRAY Report ---
Reason: mid foot pain abruptly with swelling yesterday Procedure Date: 05/30/2019 Accession Number: [id number] / [id number] Procedure: XR - Foot 3 View LT CPT Code: FULL RESULT: EXAM: LEFT FOOT RADIOGRAPHY EXAM DATE: 05/30/2019 09:59 AM. CLINICAL HISTORY: Mid foot pain abruptly with swelling yesterday. COMPARISON: None. TECHNIQUE: 3 views. FINDINGS: Bones: Normal. No fractures or bone lesions. Joints: Normal. No subluxations. Soft Tissues: Normal. No soft tissue swelling. IMPRESSION: Normal left foot radiography. [facility]
[2019-05-30 11:27] VITALS: BP 148/70
== END 2019-05-30 11:20 | disposition home or self-care (01) ==
LOC: ED 08:44
DX: S96.912A Strain of unspecified muscle and tendon at ankle and foot level, left foot, initial encounter (principal); X50.1XXA Overexertion from prolonged static or awkward postures, initial encounter; Y93.01 Activity, walking, marching and hiking; S80.211A Abrasion, right knee, initial encounter; V00.141A Fall from scooter (nonmotorized), initial encounter; I10 Essential (primary) hypertension; E11.9 Type 2 diabetes mellitus without complications; Z79.84 Long term (current) use of oral hypoglycemic drugs
CPT/HCPCS: 73630; 99283; A9270

== ENCOUNTER 2019-07-31 15:15 | Outpatient (CLI) | payer MEDICAID ==
[2019-07-31 17:40] LABS: CALCIUM 9.3 mg/dL (8.5-10.3); CREATININE 0.9 mg/dL (0.4-1.0)
[2019-07-31 17:42] LABS: HB2 TOTAL 13.5 g/dL; HEMOGLOBIN A1C 0.63 g/dL; HEMOGLOBIN A1C % 6.4 % (4.6-6.2)
== END 2019-07-31 15:16 | disposition home or self-care (01) ==
LOC: LAB.S 15:15
PROVIDERS: ATTEND Registered Nurse
DX: E11.41 Type 2 diabetes mellitus with diabetic mononeuropathy (principal)
CPT/HCPCS: 36415; 80048; 83036

== ENCOUNTER 2019-11-09 20:27 | Emergency (ER) | payer MEDICAID ==
--- NOTE | 2019-11-09 20:57 | ED Physician Documentation ---
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 denies back pain or bowel or bladder dysfunction or saddle anesthesia. reports that she can stand and ambulate but that it hurts.) Review of Systems Constitutional: reports: Reviewed and negative Eyes: reports: Reviewed and negative Ears: reports: Reviewed and negative Nose: reports: Reviewed and negative Throat: reports: Reviewed and negative Cardiac: reports: Reviewed and negative Respiratory: reports: Reviewed and negative GI: reports: Reviewed and negative : reports: Reviewed and negative Skin: reports: Reviewed and negative Musculoskeletal: reports: Extremity pain (left knee pain), Reviewed and negative Neurologic: reports: Reviewed and negative Psychiatric: reports: Reviewed and negative Endocrine: reports: Reviewed and negative Immunocompromised: reports: Reviewed and negative PD PAST MEDICAL HISTORY - Past Medical History Cardiovascular: Hypertension, High cholesterol Respiratory: None Endocrine/Autoimmune: Type 2 diabetes GI: GERD RESEARCH AIDE: None : None HEENT: None Psych: Depression, Anxiety Musculoskeletal: None Derm: None - Past Surgical History Past Surgical History: Yes /RESEARCH AIDE: Tubal ligation HEENT: Rhinoplasty - Present Medications Home Medications: Ambulatory Orders Medication Instructions Recorded Confirmed Pantoprazole Sodium [Protonix] 40 mg PO DAILY 03/23/14 07/04/17 busPIRone [Buspar] 10 mg PO BID 09/03/14 07/04/17 Losartan [Cozaar] 100 mg PO DAILY 12/24/15 07/04/17 Metformin HCl 1,000 mg PO BID 12/24/15 07/04/17 Ibuprofen [Motrin] 400 mg PO Q6H PRN #20 tablet 08/08/16 07/04/17 Disulfiram 1 tab PO DAILY 07/04/17 07/04/17 Fluoxetine HCl 1 cap PO DAILY 07/04/17 07/04/17 Gabapentin [Neurontin] 5 cap PO DAILY 07/04/17 07/04/17 traZODone [Desyrel] 2 tab PO DAILY 07/04/17 07/04/17 Hydrocodone/Acetaminophen [[place] 1 each PO Q6H PRN #20 tablet 05/30/19 5-325 Tablet] - Allergies Allergies/Adverse Reactions: Allergies Allergy/AdvReac Type Severity Reaction Status Date / Time No Known Drug Allergies Allergy Verified 11/09/19 20:35 - Social History Does the pt smoke?: No Smoking Status: Never smoker Does the pt drink ETOH?: Yes Does the pt have substance abuse?: Yes - Immunizations Immunizations are current?: Yes - POLST Patient has POLST: No PD ED PE NORMAL - Vitals Vital signs reviewed: Yes - General General: Alert and oriented X 3, No acute distress - HEENT HEENT: Atraumatic, PERRL - Neck Neck: Supple, no meningeal sign - Cardiac Cardiac: RRR, Strong equal pulses - Respiratory Respiratory: No respiratory distress, Clear bilaterally - Abdomen Abdomen: Normal bowel sounds, Soft, Non tender, Non distended - Back Back: No CVA TTP, No spinal TTP - Derm Derm: Warm and dry - Extremities Extremities: No deformity, No edema, No calf tenderness / cord, Other (the left knee is diffusely tender, there is no gross deformity or swelling or bruising. she is refusing to stand when the patient is asked to stand. There is no gross deformity the knee is able to be completely extended and flexed on passive range of motion. Cap refills less than 2 seconds compartments are soft of the thigh and the leg there are palpable DP and PT pulses that are 2+ and symmetric. There is no pain over the left greater trochanter the hip was able to be flexed and extended and internally and externally rotated and abducted and adducted on passive range of motion.) - Neuro Neuro: Alert and oriented X 3, tile trimmer 2-12 intact, No motor deficit, No sensory deficit, Normal speech - Psych Psych: Normal mood, Normal affect Results - Vitals Vitals: Vital Signs - 24 hr 11/09/19 20:30 Temperature 36.2 C L Heart Rate 72 Respiratory 16 Rate Blood Pressure 128/76 O2 Saturation 96 Oxygen O2 Source Room air PD MEDICAL DECISION MAKING - ED course Complexity details: re-evaluated patient, d/w patient, other (On exam the patient is refusing to ambulate for me however she appears to have no gross deformity on physical exam. Screening x-rays were obtained of the Left knee and thigh. Patient will be provided with a left knee immobilizer and crutches.She should take either ibuprofen or Tylenol [id number] as needed for her symptoms and follow-up with a primary care provider.) Departure - Departure Disposition: 01 Home, Self Care Clinical Impression: Left leg injury Qualifiers: Encounter type: initial encounter Qualified Code(s): S89.92XA - Unspecified injury of left lower leg, initial encounter Condition: Good Instructions: ED Strain Muscle Ext Follow-Up: Marycruz Adkins ARNP [Primary Care Provider] - Tomorrow
[2019-11-09] MEDS ORDERED: IBUPROFEN 800 MG TABLET PO STA (21:05)
--- NOTE | 2019-11-09 23:04 | XRAY Report ---
Reason: left knee pain Procedure Date: 11/09/2019 Accession Number: [id number] / [id number] Procedure: XR - Knee 3 View LT CPT Code: Final Report FULL RESULT: EXAM: LEFT FEMUR AND KNEE RADIOGRAPHY EXAM DATE: 11/09/2019 10:25 PM. CLINICAL HISTORY: Left knee and femur pain, fall. COMPARISON: KNEE 3 VIEW LT 11/09/2019 9:31 PM. TECHNIQUE: 2 views of the femur and 3 views of the knee. FINDINGS: Bones: Normal. No fracture or bone lesion. Joints: The visualized hip and knee joints are normal. No effusions. Soft Tissues: Normal. No soft tissue swelling. IMPRESSION: Negative left femur and knee radiography. [facility]
--- NOTE | 2019-11-09 23:04 | XRAY Report ---
Reason: left knee pain Procedure Date: 11/09/2019 Accession Number: [id number] / [id number] Procedure: XR - Femur 2V LT CPT Code: Final Report FULL RESULT: EXAM: LEFT FEMUR AND KNEE RADIOGRAPHY EXAM DATE: 11/09/2019 10:25 PM. CLINICAL HISTORY: Left knee and femur pain, fall. COMPARISON: KNEE 3 VIEW LT 11/09/2019 9:31 PM. TECHNIQUE: 2 views of the femur and 3 views of the knee. FINDINGS: Bones: Normal. No fracture or bone lesion. Joints: The visualized hip and knee joints are normal. No effusions. Soft Tissues: Normal. No soft tissue swelling. IMPRESSION: Negative left femur and knee radiography. [facility]
--- NOTE | 2019-11-09 23:05 | XRAY Report ---
Reason: fall/injury to R knee Procedure Date: 11/09/2019 Accession Number: [id number] / [id number] Procedure: XR - Knee 3 View RT CPT Code: Final Report FULL RESULT: EXAM: RIGHT KNEE RADIOGRAPHY EXAM DATE: 11/09/2019 10:24 PM. CLINICAL HISTORY: Fall/injury to R knee. COMPARISON: None. TECHNIQUE: 3 views. FINDINGS: Bones: Normal. No fractures or bone lesions. Joints: Normal. No effusion. No subluxations. Soft Tissues: Normal. No soft tissue swelling. IMPRESSION: Negative right knee radiography. [facility]
[2019-11-09 23:21] VITALS: BP 132/84
== END 2019-11-09 23:20 | disposition home or self-care (01) ==
LOC: ED 20:27
DX: S89.92XA Unspecified injury of left lower leg, initial encounter (principal); W01.0XXA Fall on same level from slipping, tripping and stumbling without subsequent striking against object, initial encounter; Y93.01 Activity, walking, marching and hiking; Y92.89 Other specified places as the place of occurrence of the external cause; Y99.0 Civilian activity done for income or pay; I10 Essential (primary) hypertension; E11.9 Type 2 diabetes mellitus without complications; Z79.84 Long term (current) use of oral hypoglycemic drugs
CPT/HCPCS: 73552; 73562; 99283; 99284; A9270

== ENCOUNTER 2019-11-19 11:27 | Outpatient (CLI) | payer MEDICAID ==
[2019-11-19 18:13] LABS: HB2 TOTAL 13.6 g/dL; HEMOGLOBIN A1C 0.68 g/dL; HEMOGLOBIN A1C % 6.7 % (4.6-6.2)
[2019-11-19 18:15] LABS: CALCIUM 9.4 mg/dL (8.5-10.3); CREATININE 0.8 mg/dL (0.4-1.0)
[2019-11-19 18:51] LABS: MICROALBUM/CREATININE RATIO,UR 26.3 ug/mg (<30.0); MICROALBUMIN,URINE 5.9 mg/dL (0-300.0)
== END 2019-11-19 11:28 | disposition home or self-care (01) ==
LOC: LAB.S 11:27
PROVIDERS: ATTEND Ophthalmology
DX: H05.241 Constant exophthalmos, right eye (principal); E11.41 Type 2 diabetes mellitus with diabetic mononeuropathy
CPT/HCPCS: 36415; 80048; 81599; 82043; 82570; 83036; 84445; 86800

== ENCOUNTER 2019-11-20 13:56 | Outpatient (CLI) | payer MEDICAID | END 2019-11-20 13:57 | disposition critical access hospital (66) | LOC: EMS 13:56 | PROVIDERS: ATTEND Surgery | DX: T43.212A Poisoning by selective serotonin and norepinephrine reuptake inhibitors, intentional self-harm, initial encounter (principal) | CPT/HCPCS: A0425; A0427; A0999 ==

== ENCOUNTER 2019-11-20 14:31 | Observation (INO) | payer MEDICAID ==
[2019-11-20] MEDS ORDERED: SODIUM CHLORIDE 0.9% 1,000 ML IV ONE (14:44)
--- NOTE | 2019-11-20 14:47 | ED Physician Documentation ---
PD HPI MHE - Stated complaint Stated Complaint: OD/ETOH - Chief complaint Chief Complaint: MHE - History obtained from History obtained from: Patient, Family - History of Present Illness Primary symptom: Suicide attempt Timing - onset: Today Pain level max: 0 Pain level now: 0 Contributing factors: Substance abuse - ETOH Similar symptoms before: Diagnosis (depression) Recently seen: Not recently seen - Additional information Additional information: Patient states that she had an argument with her family last night and this morning. She took 20 to 3050 mg trazodone pills. She is also been drinking vodka last night and this morning. She states that she wanted to , but does not want to anymore. She states her last suicide attempt was when she was 17. Review of Systems Ten Systems: 10 systems reviewed and negative Constitutional: denies: Fever, Chills Ears: denies: Ear pain Nose: denies: Rhinorrhea / runny nose, Congestion Cardiac: denies: Chest pain / pressure Respiratory: denies: Cough GI: denies: Vomiting, Diarrhea Skin: denies: Rash Musculoskeletal: denies: Neck pain, Back pain Neurologic: denies: Headache PD PAST MEDICAL HISTORY - Past Medical History Cardiovascular: Hypertension, High cholesterol Respiratory: None Endocrine/Autoimmune: Type 2 diabetes GI: GERD ADOBE CQ DEVELOPER: None : None HEENT: None Psych: Depression, Anxiety Musculoskeletal: None Derm: None - Past Surgical History Past Surgical History: Yes /ADOBE CQ DEVELOPER: Tubal ligation HEENT: Rhinoplasty - Present Medications Home Medications: Ambulatory Orders Medication Instructions Recorded Confirmed Pantoprazole Sodium [Protonix] 40 mg PO DAILY 03/23/14 07/04/17 busPIRone [Buspar] 10 mg PO BID 09/03/14 07/04/17 Losartan [Cozaar] 100 mg PO DAILY 12/24/15 07/04/17 Metformin HCl 1,000 mg PO BID 12/24/15 07/04/17 Ibuprofen [Motrin] 400 mg PO Q6H PRN #20 tablet 08/08/16 07/04/17 Disulfiram 1 tab PO DAILY 07/04/17 07/04/17 Fluoxetine HCl 1 cap PO DAILY 07/04/17 07/04/17 Gabapentin [Neurontin] 5 cap PO DAILY 07/04/17 07/04/17 traZODone [Desyrel] 2 tab PO DAILY 07/04/17 07/04/17 Hydrocodone/Acetaminophen [[place] 1 each PO Q6H PRN #20 tablet 05/30/19 5-325 Tablet] - Allergies Allergies/Adverse Reactions: Allergies Allergy/AdvReac Type Severity Reaction Status Date / Time No Known Drug Allergies Allergy Verified 11/09/19 20:35 - Social History Does the pt smoke?: No Smoking Status: Never smoker Does the pt drink ETOH?: Yes Does the pt have substance abuse?: Yes - Immunizations Immunizations are current?: Yes - POLST Patient has POLST: No PD ED PE NORMAL - Vitals Vital signs reviewed: Yes - General General: No acute distress, Other (Drowsy but arousable) - HEENT HEENT: PERRL, Moist mucous membranes - Neck Neck: Supple, no meningeal sign - Cardiac Cardiac: RRR - Respiratory Respiratory: No respiratory distress, Clear bilaterally - Abdomen Abdomen: Soft, Non tender, Non distended - Derm Derm: Warm and dry - Extremities Extremities: No edema - Neuro Neuro: Other (Drowsy but arousable) Results - Vitals Vitals: Vital Signs - 24 hr 11/20/19 11/20/19 14:33 14:49 Temperature 36.8 C Heart Rate 95 63 Respiratory 14 14 Rate Blood Pressure 165/73 H 152/72 H O2 Saturation 95 95 Oxygen O2 Source Room air - EKG (time done) 1437 Rate: Rate (enter#) (66) Rhythm: NSR Barry: Normal Intervals: Normal DE QRS: Normal, LVH Ischemia: Normal ST segments - Labs Labs: Laboratory Tests 11/20/19 11/20/19 11/20/19 14:49 14:49 14:54 WBC 11.0 H RBC 4.29 Hgb 13.6 Hct 42.2 MCV 98.4 MCH 31.7 H MCHC 32.2 RDW 12.5 Plt Count 328 MPV 9.8 Neut # (Auto) 7.3 H Lymph # (Auto) 2.8 Taylor # (Auto) 0.6 Eos # (Auto) 0.2 Baso # (Auto) 0.0 Absolute Nucleated RBC 0.00 Nucleated RBC % 0.0 Sodium Potassium Chloride Carbon Dioxide Anion Gap BUN Creatinine Estimated GFR (MDRD) Glucose Calcium Total Bilirubin AST ALT Alkaline Phosphatase Total Protein Albumin Globulin Albumin/Globulin Ratio Lipase Urine Color YELLOW Urine Clarity CLEAR Urine pH 5.5 Ur Specific [place] <=1.005 Urine Protein NEGATIVE Urine Glucose (UA) NEGATIVE Urine Ketones NEGATIVE Urine Occult Blood SMALL H Urine Nitrite NEGATIVE Urine Bilirubin NEGATIVE Urine Urobilinogen 0.2 (NORMAL) Ur Leukocyte Esterase NEGATIVE Urine RBC None Seen Urine WBC 0-3 Ur Squamous Epith Cells FEW Squamous Urine Bacteria None Seen Ur Microscopic Review INDICATED Urine Culture Comments NOT INDICATED Urine HCG, Qual NEGATIVE Salicylates Urine Opiates Screen NEGATIVE Ur Oxycodone Screen NEGATIVE Urine Methadone Screen NEGATIVE Ur Propoxyphene Screen NEGATIVE Acetaminophen Ur Barbiturates Screen NEGATIVE Ur Tricyclics Screen NEGATIVE Ur Phencyclidine Scrn NEGATIVE Ur Amphetamine Screen NEGATIVE U Methamphetamines Scrn NEGATIVE U Benzodiazepines Scrn NEGATIVE Urine Cocaine Screen NEGATIVE U Cannabinoids Screen NEGATIVE Ethyl Alcohol 11/20/19 14:54 WBC RBC Hgb Hct MCV MCH MCHC RDW Plt Count MPV Neut # (Auto) Lymph # (Auto) Taylor # (Auto) Eos # (Auto) Baso # (Auto) Absolute Nucleated RBC Nucleated RBC % Sodium 140 Potassium 3.3 L Chloride 102 Carbon Dioxide 26 Anion Gap 12.0 BUN 11 Creatinine 0.6 Estimated GFR (MDRD) 107 Glucose 172 H Calcium 9.0 Total Bilirubin 0.3 AST 26 ALT 27 Alkaline Phosphatase 57 Total Protein 7.5 Albumin 4.1 Globulin 3.4 Albumin/Globulin Ratio 1.2 Lipase 22 Urine Color Urine Clarity Urine pH Ur Specific [place] Urine Protein Urine Glucose (UA) Urine Ketones Urine Occult Blood Urine Nitrite Urine Bilirubin Urine Urobilinogen Ur Leukocyte Esterase Urine RBC Urine WBC Ur Squamous Epith Cells Urine Bacteria Ur Microscopic Review Urine Culture Comments Urine HCG, Qual Salicylates < 6.0 Urine Opiates Screen Ur Oxycodone Screen Urine Methadone Screen Ur Propoxyphene Screen Acetaminophen < 10 L Ur Barbiturates Screen Ur Tricyclics Screen Ur Phencyclidine Scrn Ur Amphetamine Screen U Methamphetamines Scrn U Benzodiazepines Scrn Urine Cocaine Screen U Cannabinoids Screen Ethyl Alcohol 206.3 PD MEDICAL DECISION MAKING - ED course Complexity details: reviewed results, re-evaluated patient, considered differential, d/w patient ED course: Patient with an intentional overdose. Discussed the case with poison control. Due to the potentially dangerous delayed clinical effects of the amount of trazo done she took along with the alcohol ingestion, they recommend an observation of at least 12 hours if not longer. They recommend that she be placed on telemetry. Due to the extended action of the medication with potentially dangerous delayed clinical effects when mixed with alcohol, we will place her in observation. Discussed the case with Dr. Gold who accepts This document was made in part using voice recognition software. While efforts are made to proofread this document, sound alike and grammatical errors may occur. Departure - Departure Disposition: ED Place in Observation Clinical Impression: Suicidal ideation Depression Qualifiers: Depression Type: unspecified Qualified Code(s): F32.9 - Major depressive disorder, single episode, unspecified Medication overdose Qualifiers: Encounter type: initial encounter Injury intent: intentional self-harm Qualified Code(s): T50.902A - Poisoning by unspecified drugs, medicaments and biological substances, intentional self-harm, initial encounter Alcoholic intoxication Qualifiers: Complication of substance-induced condition: uncomplicated Qualified Code(s): F10.920 - Alcohol use, unspecified with intoxication, uncomplicated Condition: Stable
[2019-11-20 14:52] LABS: MUDS CUTOFF CONCENTRATIONS CUTOFF CONC BELOW:
[2019-11-20 14:57] LABS: BILIRUBIN,URINE NEGATIVE (NEGATIVE); GLUCOSE, URINE (UA) NEGATIVE (NEGATIVE); KETONES,URINE (UA) NEGATIVE (NEGATIVE); LEUKOCYTE ESTERASE, URINE NEGATIVE (NEGATIVE); NITRITE,URINE NEGATIVE (NEGATIVE); OCCULT BLOOD,URINE SMALL (NEGATIVE); PH,URINE 5.5 PH (5.0-7.5); PROTEIN,URINE NEGATIVE (NEGATIVE); UROBILINOGEN,URINE 0.2 (NORMAL) E.U./dL (NORMAL)
[2019-11-20 15:07] LABS: BASOPHILS % (AUTO) 0.4 %; EOSINOPHILS # (AUTO) 0.2 10^3/uL (0.0-0.7); EOSINOPHILS % (AUTO) 1.5 %; HGB - HEMOGLOBIN 13.6 g/dL (12.0-16.0); LYMPHOCYTES # (AUTO) 2.8 10^3/uL (1.5-3.5); LYMPHOCYTES % (AUTO) 25.7 %; MEAN CORPUSCULAR HEMOGLOBIN 31.7 pg (27.0-31.0); MEAN CORPUSCULAR HGB CONC 32.2 g/dL (32.0-36.0); MEAN CORPUSCULAR VOLUME 98.4 fL (81.0-99.0); MEAN PLATELET VOLUME 9.8 fL (7.9-10.8); MONOCYTES # (AUTO) 0.6 10^3/uL (0.0-1.0); NEUTROPHILS # (AUTO) 7.3 10^3/uL (1.5-6.6); NEUTROPHILS % (AUTO) 66.9 %; PLT - PLATELET COUNT 328 10^3/uL (130-450); RED BLOOD COUNT 4.29 10^6/uL (4.20-5.40); RED CELL DISTRIBUTION WIDTH 12.5 % (12.0-15.0)
[2019-11-20 15:08] LABS: CLARITY,URINE CLEAR (CLEAR); HCG UR QUAL NEGATIVE
[2019-11-20 15:19] LABS: BACTERIA,URINE None Seen /HPF (None Seen); RBC,URINE None Seen /HPF (0-5); SQUAMOUS EPITHELIAL CELL,UR FEW Squamous (<= Few)
[2019-11-20 15:20] LABS: ACETAMINOPHEN < 10 ug/mL (10-30); ALBUMIN 4.1 g/dL (3.2-5.5); ALBUMIN/GLOBULIN RATIO 1.2 (1.0-2.2); ALKALINE PHOSPHATASE 57 IU/L (42-121); ALT ALANINE AMINOTRANSFERASE 27 IU/L (10-60); AST ASPARTATE AMINOTRANSFERASE 26 IU/L (10-42); BILIRUBIN,TOTAL 0.3 mg/dL (0.2-1.0); BUN - BLOOD UREA NITROGEN 11 mg/dL (6-20); CARBON DIOXIDE - CO2 26 mmol/L (21-32); CHLORIDE 102 mmol/L (101-111); CREATININE 0.6 mg/dL (0.4-1.0); GFR - MDRD 107 (>89); GLUCOSE 172 mg/dL (70-100); LIPASE 22 U/L (22-51); SALICYLATE < 6.0 mg/dL; SODIUM 140 mmol/L (135-145); TOTAL PROTEIN 7.5 g/dL (6.7-8.2)
[2019-11-20 15:24] LABS: AMPHETAMINE SCREEN,URINE NEGATIVE (NEGATIVE); BENZODIAZEPINES SCREEN, URINE NEGATIVE (NEGATIVE); COCAINE SCREEN URINE NEGATIVE (NEGATIVE); METHADONE SCREEN, URINE NEGATIVE (NEGATIVE); METHAMPHETAMINES SCREEN, URINE NEGATIVE (NEGATIVE); OPIATE SCREEN, URINE NEGATIVE (NEGATIVE); TRICYCLIC ANTIDEPRESSANT,URINE NEGATIVE (NEGATIVE)
[2019-11-20 15:25] LABS: OXYCODONE SCREEN, URINE NEGATIVE (NEGATIVE); PROPOXYPHENE SCREEN, URINE NEGATIVE (NEGATIVE)
[2019-11-20] MEDS ORDERED: SODIUM CHLORIDE FLUSH 0.9% 10 ML SYRINGE IVP PRN (15:48)
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
[2019-11-20] MEDS: SODIUM CHLORIDE FLUSH 0.9% 10 ML SYRINGE IVP SCH (17:15)
[2019-11-21] MEDS ORDERED: PROCHLORPERAZINE 10 MG/2 ML VIAL IVP PRN (08:44)
[2019-11-21 10:04] LABS: BASOPHILS % (AUTO) 0.2 %; EOSINOPHILS # (AUTO) 0.1 10^3/uL (0.0-0.7); EOSINOPHILS % (AUTO) 1.1 %; HGB - HEMOGLOBIN 12.5 g/dL (12.0-16.0); LYMPHOCYTES # (AUTO) 1.8 10^3/uL (1.5-3.5); LYMPHOCYTES % (AUTO) 21.5 %; MEAN CORPUSCULAR HEMOGLOBIN 33.1 pg (27.0-31.0); MEAN CORPUSCULAR HGB CONC 33.5 g/dL (32.0-36.0); MEAN CORPUSCULAR VOLUME 98.7 fL (81.0-99.0); MEAN PLATELET VOLUME 9.7 fL (7.9-10.8); MONOCYTES # (AUTO) 0.4 10^3/uL (0.0-1.0); MONOCYTES % (AUTO) 5.4 %; NEUTROPHILS # (AUTO) 5.9 10^3/uL (1.5-6.6); NEUTROPHILS % (AUTO) 71.4 %; PLT - PLATELET COUNT 271 10^3/uL (130-450); RED BLOOD COUNT 3.78 10^6/uL (4.20-5.40); RED CELL DISTRIBUTION WIDTH 12.4 % (12.0-15.0); WHITE BLOOD COUNT 8.2 x10^3/uL (4.8-10.8)
[2019-11-21 10:10] LABS: ALBUMIN 3.5 g/dL (3.2-5.5); ALBUMIN/GLOBULIN RATIO 1.2 (1.0-2.2); BILIRUBIN,TOTAL 0.6 mg/dL (0.2-1.0); CREATININE 0.7 mg/dL (0.4-1.0); MAGNESIUM 1.9 mg/dL (1.7-2.8); TOTAL PROTEIN 6.5 g/dL (6.7-8.2)
--- NOTE | 2019-11-21 10:21 | PHARMACY PROGRESS NOTE ---
- Best Possible Medication History Admit Date and Time: 11/20/19 1548 Processed by: Pharmacy Medication History completed: Yes Patient Interview: Completed Secondary Source(s): Physician records, Pharmacy records As the person ultimately responsible for medication therapy, providers are able to order a medication from an existing home medication list in [facility] via the "Reconcile Routine" prior to Confirmation of that medication by research support specialist. Such practice is discouraged except when the physician, in their clinical judgment, deems that a medical need exists for a medication without regard to previous use.
[2019-11-21] MEDS: SODIUM CHLORIDE FLUSH 0.9% 10 ML SYRINGE IVP SCH (10:35)
[2019-11-21 10:53] LABS: HB2 TOTAL 12.6 g/dL; HEMOGLOBIN A1C 0.61 g/dL; HEMOGLOBIN A1C % 6.6 % (4.6-6.2)
--- NOTE | 2019-11-21 13:48 | Discharge Plan ---
Discharge Plan Problem Reviewed?: Yes Disposition: Home, Self Care Condition: Good Diet: Diabetic Activity Restrictions: Activity as Tolerated Shower Restrictions: No Driving Restrictions: No Health Concerns: Suicide attempt Alcoholism Depression with anxiety Diabetes mellitus type 2 Hypertension Plan of Treatment: See the recommended therapists as established between you and social work Take all your medications as prescribed Avoid the use of alcohol Care Goals: Have an improved mood with less symptoms of depression Follow your established safety plan Avoid ED visits or hospital stays Assessment: You were attempted after a suicide attempt. Poison control recommended at least 12 hours of telemetry and follow up lab testing, which are all insignificant today. You have spoken with social work and underwent a mental health evaluation to ensure you will be safe to return home. You are medically clear to return home. See your primary care provider within one week of this stay. No Smoking: If you smoke, Please STOP! Call for help. Follow-up with: Marycruz Adkins ARNP [Primary Care Provider] -
[2019-11-21 14:15] VITALS: BP 155/83
--- NOTE | 2019-11-22 08:05 | DISCHARGE SUMMARY ---
Discharge Summary Admit Date: 11/20/19 Discharge Date: 11/21/19 Discharging Provider: MATTHEW Donovan Primary Care Provider: Marycruz Adkins Code Status: Attempt Resuscitation Condition at Discharge: Good Discharge Disposition: 01 Home, Self Care - DIAGNOSES Admission Diagnoses: Suicide attempt Alcohol intoxication in active alcoholic Medication overdose Social problem Depression Diabetes mellitus type 2 in obese Hypertension Hyperlipidemia Headache Morbid obesity Discharge Diagnoses with Status of Each Condition: Suicide attempt-Present on admission, resolved Alcohol intoxication in active alcoholic-REsolved Medication overdose-Resolved Social problem-Chronic, stable Depression-Chronic, stable Diabetes mellitus type 2 in obese-Chronic, stable Hypertension-Chronic, stable Hyperlipidemia-Chronic, stable Headache-Chronic, stable Morbid obesity-Chronic, stable - HPI History of Present Illness: Kelly Dhaliwal is an ill appearing 49-year old white female with a past medical history of hypertension, hyperlipidemia, diabetes mellitus type 2, GERD, non- STEMI, depression, anxiety, recurrent suicidal ideation starting at age 17, alcoholism, and chronic headaches. The patient was brought in by EMS for suicide attempt in which the patient admits to consuming #30 (50mg) Trazadone, then Vodka (a half to one fifth). The patient admits to ongoing depression which has encouraged more suicidal ideation lately. She states that she had a fight with her family which began last night. The fight continued this morning, so she became desperate, and went through with this attempt. Labs showed WBC count 11.0, potassium 3.3, glucose 172, UA normal, MUDDs, positive for acetaminophen, ethyl alcohol 206.3, all else negative. Poison control was contacted who recommended at least a minimum of 12 hours of medical observation (telemetry) due to the potentially dangerous delayed clinical effects of the amount of trazodone, along with the alcohol ingestion. - HOSPITAL COURSE Hospital Course: The patient was admitted for a one night stay in the hospital after an attempted suicide. Poison control recommended at least 12 hours of telemetry and follow up lab testing, which are all insignificant today. Social work saw the patient and underwent a mental health evaluation to ensure she would be safe to return home. They came up with a safety plan. The patient has been medically cleared to return home. - ALLERGIES Allergies/Adverse Reactions: Allergies Allergy/AdvReac Type Severity Reaction Status Date / Time No Known Drug Allergies Allergy Verified 11/09/19 20:35 - MEDICATIONS Home Medications: Ambulatory Orders Medication Instructions Recorded Confirmed Losartan [Cozaar] 100 mg PO DAILY 12/24/15 11/21/19 Metformin HCl 1,000 mg PO BID 12/24/15 11/21/19 Disulfiram 500 mg PO DAILY 07/04/17 11/21/19 Fluoxetine HCl 60 mg PO DAILY 07/04/17 11/21/19 traZODone [Desyrel] 1 - 4 tab PO QPM 07/04/17 11/21/19 Atorvastatin [Lipitor] 10 mg PO QPM 11/21/19 11/21/19 Buspirone HCl 30 mg PO BID 11/21/19 11/21/19 Gabapentin 300 mg PO DAILY 11/21/19 11/21/19 Gabapentin 600 mg PO QPM 11/21/19 11/21/19 Ibuprofen [Motrin] 800 mg PO DAILY PRN 11/21/19 11/21/19 amLODIPine [Norvasc] 10 mg PO DAILY 11/21/19 11/21/19 - PHYSICAL EXAM AT DISCHARGE General Appearance: positive: Alert, Mild distress, Anxious Eyes Bilateral: positive: PERRL, Conjunctivae nml ENT: positive: No signs of dehydration, Pharyngeal erythema Neck: positive: Thyroid nml, No JVD, Stiff neck Respiratory: positive: Chest non-tender, No respiratory distress, Breath sounds nml Cardiovascular: positive: Regular rate & rhythm, No gallop, Tachycardia, S ystolic murmur Peripheral Pulses: positive: 2+ Abdomen: positive: Non-tender, Nml bowel sounds, Hepatomegaly Back: positive: Nml inspection Skin: positive: Color nml, No rash, Warm, Dry Extremities: positive: Non-tender, Full ROM, Nml appearance Neurologic/Psychiatric: positive: Oriented x3, CN's nml (2-12), Motor nml, Sensation nml, Depressed mood/affect (flat) Reflexes: Bicep (R): 3+, Bicep (L): 3+ - LABS Result Diagrams: 11/21/19 09:51 11/21/19 09:51 - FOLLOW UP Follow Up: See your primary care provider within one week of this stay. - TIME SPENT Time Spent in Discharge (Minutes): 45
== END 2019-11-21 14:45 | disposition home or self-care (01) ==
LOC: EDUNIT# → ED 14:31 → MS3 15:48
PROVIDERS: ADMIT Nurse Practitioner; ATTEND Nurse Practitioner
DX: T43.212A Poisoning by selective serotonin and norepinephrine reuptake inhibitors, intentional self-harm, initial encounter (principal); R40.0 Somnolence; F10.229 Alcohol dependence with intoxication, unspecified; F10.280 Alcohol dependence with alcohol-induced anxiety disorder; F10.24 Alcohol dependence with alcohol-induced mood disorder; Y90.7 Blood alcohol level of 200-239 mg/100 ml; F32.9 Major depressive disorder, single episode, unspecified; I10 Essential (primary) hypertension; E11.42 Type 2 diabetes mellitus with diabetic polyneuropathy; E78.5 Hyperlipidemia, unspecified; R51 Headache; E66.01 Morbid (severe) obesity due to excess calories; F10.282 Alcohol dependence with alcohol-induced sleep disorder; K21.9 Gastro-esophageal reflux disease without esophagitis; I25.2 Old myocardial infarction; Z79.899 Other long term (current) drug therapy; Z79.84 Long term (current) use of oral hypoglycemic drugs; Z63.8 Other specified problems related to primary support group; Z91.410 Personal history of adult physical and sexual abuse; Z87.891 Personal history of nicotine dependence
CPT/HCPCS: 36415; 80053; 80306; 80307; 80320; 80329; 81001; 81025; 83036; 83690; 83735; 84443; 85025; 93005; 96361; 96374; 99285; G0378; 81003; 87086

== ENCOUNTER 2019-12-11 11:05 | Outpatient (CLI) | payer MEDICAID ==
--- NOTE | 2019-12-11 12:44 | Mammography Report ---
Reason: ROUTINE MAMMO Procedure Date: 12/11/2019 Accession Number: [id number] / [id number] Procedure: MGS - Screening Mammo Dig Bilat CPT Code: Final Report FULL RESULT: EXAM: Screening Mammo Dig Bilat DATE: 12/11/2019 11:27 AM CLINICAL HISTORY: Routine screening. Mother with breast cancer. TECHNIQUE: (B) - Bilateral CC and MLO views were obtained. COMPARISON: 08/10/2017, 08/06/2016, 06/04/2015, 05/14/2014 PARENCHYMAL PATTERN: (A) - The breasts demonstrate scattered fibroglandular densities bilaterally. FINDINGS: No significant interval change. There are no suspicious masses, calcifications, or areas of distortion. IMPRESSION: Negative examination. BI-RADS category 1. RECOMMENDATION: (ANNUAL) - Recommend routine annual screening mammography. BI-RADS CATEGORY: (1) - Negative. STANDARD QUALIFYING STATEMENTS: 1. This examination was not reviewed with the aid of Computer-Aided Detection (CAD). 2. A negative or benign imaging report should not preclude biopsy if clinically suspicious findings are present. 3. Dense breasts may obscure an underlying neoplasm. 4. This examination was reviewed without the aid of 3D breast imaging (tomosynthesis).
== END 2019-12-11 11:06 | disposition home or self-care (01) ==
LOC: DI.S 11:05
DX: Z12.31 Encounter for screening mammogram for malignant neoplasm of breast (principal); Z80.3 Family history of malignant neoplasm of breast
CPT/HCPCS: 77067

== ENCOUNTER 2019-12-19 07:00 | Outpatient (CLI) | payer MEDICAID | END 2019-12-19 23:59 | disposition home or self-care (01) | LOC: LAB.R 07:00 | PROVIDERS: ATTEND Physician Assistant | DX: R05 Cough (principal) | CPT/HCPCS: 87070; 87205 ==

== ENCOUNTER 2020-01-29 14:49 | Outpatient (CLI) | payer MEDICAID ==
[2020-01-29 15:14] LABS: CREATININE 0.8 mg/dL (0.4-1.0)
[2020-01-29] MEDS ORDERED: GADOBUTROL 10 MMOL/10 ML VIAL IVP ONE (16:52)
--- NOTE | 2020-01-30 03:47 | MRI Report ---
Reason: RT PROPTOSIS, LACRIMAL GLAND PROLAPSE Procedure Date: 01/29/2020 Accession Number: [id number] / [id number] Procedure: MRI - Orbits W/WO CPT Code: Final Report FULL RESULT: EXAM: MRI BRAIN AND ORBITS WITHOUT AND WITH CONTRAST EXAM DATE: 01/29/2020 05:12 PM CLINICAL HISTORY: Right proptosis, lacrimal gland prolapse. COMPARISON: None. TECHNIQUE: Multiplanar, multisequence T1-weighted and fluid-sensitive MR sequences of the brain were performed before and after administration of intravenous contrast. Sequences optimized for routine and orbital evaluation. Other: Additional high resolution images through the orbits were obtained before and after contrast administration. IV Contrast: 10 mL Gadavist. FINDINGS: Brain Volume: Normal for age. Parenchyma: No acute hemorrhage, mass, or infarct. No white matter lesions identified. No abnormal enhancement. Ventricles/Cisterns: No hydrocephalus. No abnormal extra-axial fluid collection or hemorrhage. Orbits: There is bilateral proptosis due to increased retro-orbital fat. There is greater extension of the right lacrimal gland into the periorbital soft tissues due to proptosis rather than actual enlargement of the gland. The left lacrimal gland extends slightly into the periorbital soft tissues but at least half of the gland is residing within the intraorbital compartment. The bilateral lacrimal glands enhance homogeneously without evidence of an underlying mass. The globes are symmetric in size. There is no evidence of lens dislocation or intraocular hemorrhage. The superior ophthalmic veins, optic nerves, and extraocular muscles are normal in appearance. Sella [place]: The pituitary gland, cavernous sinuses, suprasellar cistern and optic chiasm are unremarkable. IAC: Symmetric and unremarkable. Vasculature: Normal signal flow void is seen in the major arterial structures at the skull base. The dural sinuses are patent and enhance normally. Sinuses: No acute sinus disease. Bones: No focal pathologic appearing marrow signal changes. IMPRESSION: 1. No acute infarct, intracranial mass lesion, or hemorrhage. 2. There is bilateral proptosis due to increased retro-orbital fat. This causes the right lacrimal gland to extend more into the periorbital soft tissues rather than residing in the intraorbital compartment which mimics an enlarged right gland. No underlying mass is seen in either lacrimal gland. RADIA
== END 2020-01-29 14:50 | disposition home or self-care (01) ==
LOC: LAB 14:49
PROVIDERS: ATTEND Ophthalmology
DX: H05.241 Constant exophthalmos, right eye (principal)
CPT/HCPCS: 36415; 70543; 82565; A9585

== ENCOUNTER 2020-03-24 08:00 | Outpatient (CLI) | payer MEDICAID | END 2020-03-24 23:59 | disposition home or self-care (01) | LOC: LAB 08:00 | PROVIDERS: ATTEND Registered Nurse | DX: Z11.9 Encounter for screening for infectious and parasitic diseases, unspecified (principal) | CPT/HCPCS: 81599 ==

== ENCOUNTER 2020-05-12 09:31 | Outpatient (CLI) | payer MEDICAID ==
[2020-05-12 15:05] LABS: BASOPHILS % (AUTO) 0.3 %; EOSINOPHILS # (AUTO) 0.2 10^3/uL (0.0-0.7); HGB - HEMOGLOBIN 13.1 g/dL (12.0-16.0); LYMPHOCYTES # (AUTO) 2.1 10^3/uL (1.5-3.5); LYMPHOCYTES % (AUTO) 26.7 %; MEAN CORPUSCULAR HGB CONC 32.3 g/dL (32.0-36.0); MEAN CORPUSCULAR VOLUME 102.3 fL (81.0-99.0); MEAN PLATELET VOLUME 10.8 fL (7.9-10.8); MONOCYTES # (AUTO) 0.5 10^3/uL (0.0-1.0); NEUTROPHILS # (AUTO) 5.2 10^3/uL (1.5-6.6); NEUTROPHILS % (AUTO) 64.6 %; PLT - PLATELET COUNT 234 10^3/uL (130-450); RED BLOOD COUNT 3.97 10^6/uL (4.20-5.40); RED CELL DISTRIBUTION WIDTH 13.3 % (12.0-15.0)
[2020-05-12 15:36] LABS: HB2 TOTAL 13.6 g/dL; HEMOGLOBIN A1C 0.75 g/dL; HEMOGLOBIN A1C % 7.2 % (4.6-6.2)
[2020-05-12 15:43] LABS: ALBUMIN 4.1 g/dL (3.2-5.5); ALBUMIN/GLOBULIN RATIO 1.2 (1.0-2.2); ALKALINE PHOSPHATASE 65 IU/L (42-121); ALT ALANINE AMINOTRANSFERASE 43 IU/L (10-60); AST ASPARTATE AMINOTRANSFERASE 57 IU/L (10-42); BILIRUBIN,TOTAL 0.6 mg/dL (0.2-1.0); BUN - BLOOD UREA NITROGEN 12 mg/dL (6-20); CALCIUM 9.4 mg/dL (8.5-10.3); CARBON DIOXIDE - CO2 27 mmol/L (21-32); CHLORIDE 101 mmol/L (101-111); CHOL/HDL RATIO 3.8 (<4.4); CHOLESTEROL 180 mg/dL; CREATININE 0.7 mg/dL (0.4-1.0); GLUCOSE 152 mg/dL (70-100); HDL CHOLESTEROL 47 mg/dL; LDL CHOLESTEROL,CALCULATED 104 mg/dL; LDL/HDL RATIO 2.2 (<4.4); SODIUM 137 mmol/L (135-145); TOTAL PROTEIN 7.5 g/dL (6.7-8.2); VLDL CHOLESTEROL 29 mg/dL
== END 2020-05-12 09:32 | disposition home or self-care (01) ==
LOC: LAB.S 09:31
PROVIDERS: ATTEND Registered Nurse
DX: E11.41 Type 2 diabetes mellitus with diabetic mononeuropathy (principal); I10 Essential (primary) hypertension; E78.1 Pure hyperglyceridemia; K21.9 Gastro-esophageal reflux disease without esophagitis; F32.9 Major depressive disorder, single episode, unspecified; F10.10 Alcohol abuse, uncomplicated; G62.9 Polyneuropathy, unspecified
CPT/HCPCS: 36415; 80053; 80061; 83036; 83721; 84443; 85025

== ENCOUNTER 2020-09-06 12:11 | Outpatient (CLI) | payer MEDICAID | END 2020-09-06 12:12 | disposition critical access hospital (66) | LOC: EMS 12:11 | PROVIDERS: ATTEND Surgery | DX: R51.9 Headache, unspecified (principal); R42 Dizziness and giddiness; M54.5 Low back pain; R11.0 Nausea; R40.0 Somnolence; S09.90XA Unspecified injury of head, initial encounter; W01.0XXA Fall on same level from slipping, tripping and stumbling without subsequent striking against object, initial encounter; Y93.89 Activity, other specified; Y92.89 Other specified places as the place of occurrence of the external cause | CPT/HCPCS: A0425; A0427; A0999 ==

== ENCOUNTER 2020-09-06 12:54 | Emergency (ER) | payer MEDICAID ==
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
[2020-09-06] MEDS ORDERED: KETOROLAC 15 MG/ML VIAL IVP STA (13:23)
[2020-09-06] MEDS: PROMETHAZINE INJ 6.25 MG in SODIUM CHLORIDE 0.9% 50 ML IV STA ×2 (13:51→14:56)
--- NOTE | 2020-09-06 13:54 | CT Report ---
PROCEDURE: HEAD WO INDICATIONS: fell and struck back of head TECHNIQUE: Noncontrast 4.5 mm thick angled axial sections acquired from the foramen magnum to the vertex. For r adiation dose reduction, the following was used: automated exposure control, adjustment of mA and/or kV according to patient size. COMPARISON: MRI orbits 01/30/2020. FINDINGS: Image quality: Excellent. CSF spaces: Basal cisterns are patent. No extra-axial fluid collections. Ventricles are normal in size and shape. Brain: No midline shift. No intracranial masses or hemorrhage. Hank[place]-white matter interface is norm al. Skull and face: Calvarium and visualized facial bones are intact, without suspicious lesions. Bilate ral proptosis is again seen. Sinuses: Visualized sinuses and mastoids are clear. IMPRESSION: No acute intracranial abnormality. Similar bilateral proptosis. Reviewed by: Daniel Ivey MD on 09/06/2020 12:53 PM [place] Approved by: Daniel Ivey MD on 09/06/2020 12:53 PM [facility] Station ID: [id number]
--- NOTE | 2020-09-06 13:59 | CT Report ---
PROCEDURE: LUMBAR SPINE WO INDICATIONS: fall onto back TECHNIQUE: Noncontrast 3 mm thick sections acquired from the T12 level to the sacrum. Sagittal and coronal refo rmats were constructed. For radiation dose reduction, the following was used: automated exposure co ntrol, adjustment of mA and/or kV according to patient size. COMPARISON: CT abdomen and pelvis 08/08/2016. FINDINGS: Image quality: Excellent. Bones: There is normal bony alignment. No acute vertebral body compression fractures. No suspiciou s lytic or blastic bony lesions. Central spinal caliber is of normal overall caliber. No pars defec ts. Mild broad based disc bulges at L4-L5 and L5-S1 visualized and slightly progressed compared to 20 16. Soft tissues: No retroperitoneal masses or hematomas. Visualized aorta is normal in caliber. Divert iculosis. IMPRESSION: No acute fracture. Mild degenerative disc disease in the lower lumbar spine. Diverticulosis. Reviewed by: Daniel Ivey MD on 09/06/2020 12:58 PM [facility] Approved by: Daniel Ivey MD on 09/06/2020 12:58 PM [facility] Station ID: [id number]
[2020-09-06 14:02] LABS: BASOPHILS % (AUTO) 0.4 %; EOSINOPHILS # (AUTO) 0.2 10^3/uL (0.0-0.7); EOSINOPHILS % (AUTO) 2.2 %; HGB - HEMOGLOBIN 13.3 g/dL (12.0-16.0); LYMPHOCYTES # (AUTO) 2.2 10^3/uL (1.5-3.5); LYMPHOCYTES % (AUTO) 27.6 %; MEAN CORPUSCULAR HEMOGLOBIN 32.4 pg (27.0-31.0); MEAN CORPUSCULAR HGB CONC 31.7 g/dL (32.0-36.0); MEAN CORPUSCULAR VOLUME 101.9 fL (81.0-99.0); MONOCYTES # (AUTO) 0.4 10^3/uL (0.0-1.0); MONOCYTES % (AUTO) 5.1 %; NEUTROPHILS # (AUTO) 5.1 10^3/uL (1.5-6.6); NEUTROPHILS % (AUTO) 64.3 %; PLT - PLATELET COUNT 234 10^3/uL (130-450); RED BLOOD COUNT 4.11 10^6/uL (4.20-5.40); RED CELL DISTRIBUTION WIDTH 12.9 % (12.0-15.0); WHITE BLOOD COUNT 7.9 x10^3/uL (4.8-10.8)
[2020-09-06 14:12] LABS: BUN - BLOOD UREA NITROGEN 12 mg/dL (6-20); CARBON DIOXIDE - CO2 24 mmol/L (21-32); CHLORIDE 103 mmol/L (101-111); CREATININE 0.7 mg/dL (0.4-1.0); GLUCOSE 114 mg/dL (70-100); SODIUM 137 mmol/L (135-145)
[2020-09-06] MEDS ORDERED: MORPHINE 2 MG/ML CARPUJECT IVP STA (14:38)
[2020-09-06] MEDS ORDERED: ONDANSETRON 4 MG/2 ML VIAL IVP STA (14:57)
[2020-09-06 15:20] VITALS: BP 128/63
== END 2020-09-06 15:30 | disposition home or self-care (01) ==
LOC: EDUNIT# → ED 12:54
DX: S06.0X0A Concussion without loss of consciousness, initial encounter (principal); S00.03XA Contusion of scalp, initial encounter; S39.012A Strain of muscle, fascia and tendon of lower back, initial encounter; W00.0XXA Fall on same level due to ice and snow, initial encounter; Y93.01 Activity, walking, marching and hiking; Y92.008 Other place in unspecified non-institutional (private) residence as the place of occurrence of the external cause; M51.36 Other intervertebral disc degeneration, lumbar region; I10 Essential (primary) hypertension; E11.42 Type 2 diabetes mellitus with diabetic polyneuropathy; E11.51 Type 2 diabetes mellitus with diabetic peripheral angiopathy without gangrene; Z79.84 Long term (current) use of oral hypoglycemic drugs
CPT/HCPCS: 36415; 70450; 72131; 80048; 80320; 85025; 93005; 96365; 96375; 99284; 99285; J7040

== ENCOUNTER 2020-09-29 21:50 | Outpatient (CLI) | payer MEDICAID | END 2020-09-29 21:51 | disposition home or self-care (01) | LOC: COV 21:50 | PROVIDERS: ATTEND Family Medicine | DX: Z20.822 Contact with and (suspected) exposure to COVID-19 (principal) ==

== ENCOUNTER 2020-12-20 09:27 | Outpatient (CLI) | payer MEDICAID ==
[2020-12-20 15:32] LABS: CALCIUM 9.8 mg/dL (8.5-10.3); CREATININE 0.7 mg/dL (0.4-1.0); POTASSIUM 4.7 mmol/L (3.5-5.0)
[2020-12-20 15:38] LABS: MICROALBUM/CREATININE RATIO,UR 11.2 ug/mg (<30.0); MICROALBUMIN,URINE 2.1 mg/dL (0-300.0)
[2020-12-20 18:38] LABS: ESTIMATED AVERAGE GLUCOSE 157 mg/dL (70-100); HEMOGLOBIN A1c% 7.1 % (4.27-6.07)
== END 2020-12-20 09:28 | disposition home or self-care (01) ==
LOC: LAB.S 09:27
PROVIDERS: ATTEND Registered Nurse
DX: E11.41 Type 2 diabetes mellitus with diabetic mononeuropathy (principal); I10 Essential (primary) hypertension; F32.9 Major depressive disorder, single episode, unspecified
CPT/HCPCS: 36415; 80048; 82043; 82570; 83036

== ENCOUNTER 2021-02-26 14:08 | Outpatient (CLI) | payer MEDICAID ==
[2021-02-26 15:03] VITALS: BP 139/73
--- NOTE | 2021-02-26 15:03 | SLEEP CARE CONSULTATION ---
Information from patient questionnaire entered by Kelly Dunlap. I have reviewed and concur with the information entered by Kelly Dunlap. This document represents the service I personally performed and the decisions made by me, Kelly Moore ARNP. History of Present Illness Service Date and Time: 02/26/2021 1408 Reason for Visit: New patient Chief Complaint: reports: Insomnia, Unrefreshed sleep (takes Trazadone to sleep), Snoring, Observed pauses in breathing, Frequent awakenings at night Date of Onset: Years Usual bedtime: 9 PM Time it takes to fall asleep: depends on if I take my pills Snores at night: Yes Observed to quit breathing while asleep: Yes Sleeps alone due to snoring: Yes (with exhusband) Number of times waking at night: 1-2 Reasons for waking at night: reports: Snoring, Gasping for air, Other (wake feeling like she is having hard time breathing) Toss, Turn, or Twitch while sleeping: Yes Recalls having dreams: Yes Usually gets out of bed at: 0700 Feels refreshed in the morning: No Morning headache: No Sleepy or fatigued during the day: Yes Ever fallen asleep while driving: No Takes day naps: No Dreams during day naps: No Prior sleep studies: No Additional HPI information: I had the pleasure of seeing NELLY SABILLON today regarding the possibility of her having a sleep disorder. Her current complaints are insomnia, pauses in breathing and snoring. She has been having a lot of people telling her of her loud snoring and having pauses in breathing. She went to her PCP because she would like to have bariatric surgery to help her lose weight. During the visit they talked about her snoring and she was referred here for evaluation. She states she normally does not wake up feeling rested. She has to take a Trazodone to go to sleep and sometimes another 50 mg Trazodone if she wakes up in the night and is not able to go back to sleep. She is tired throughout the day. She had had times when she woke herself up snoring and occasionally woke up feeling like she needed more air/short of breath. She has an uncle who is treated with a PAP machine. 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 Patient is and lives in [place]. Have you smoked in the past 12 months: No (vaped a couple times) Alcohol use: Yes Alcohol amount and frequency: has an issue and is working on this; has naltrexone Caffeine use: Yes Caffeine amount and frequency: 16-20 ounce Latte or 2 cups of coffee nearly daily Family History Family history of sleep disordered breathing: Yes Family Hx Sleep Apnea: Other: Sleep apnea - Treated (Uncle) Allergies and Home Medications Drug allergies reviewed: Yes (NKDA) Home medication list reviewed: Yes Allergy and home medication list: Buspirone HCL Fluoxetine Gabapentin Ibuprofen Losartan potassium Metformin Amlodipine besylate D3 Esomeprazole magnesium Acetaminophen - Codiene #3, prn Atorvastatin Trazodone Loratidine Aller-Terrence Naltraxone Review of Systems Weight gain over past 5 years: 30+ Cardiovascular: reports: high blood pressure Respiratory: reports: shortness of breath Gastrointestinal: reports: heartburn Urinary: reports: frequency Neurological: reports: headaches Psychiatric: reports: Attention Deficit Hyperactivity, anxiety, depression, mood disorder, claustrophobia Ear/Nose/Throat: reports: sinus problems. denies: tonsillectomy Endocrine: reports: sluggishness, too hot or cold, excessive thirst, increased appetite, increased urination Musculoskeletal: reports: neck pain, back pain, muscle pain or cramping Immunologic: reports: sneezing Physical Exam Blood Pressure: 139/73 Cuff size: wrist Heart Rate: 63 O2 Saturation: 96 Height: 5 ft 5 in Weight: 254 lb Body Mass Index: 42.3 BMI Classification: Morbidly Obese Neck circumference: 17.5 (inches) Mouth and throat: narrow oropharynx Soft palate: long Hard palate: normal Uvula visualization: 25% Mallampati Class III Tongue: enlarged in size with teeth lambert on lateral edges Tonsils: 1+ Neck: normal w/o lymphadenopathy or thyromegaly Heart: regular rate and rhythm Lungs: clear bilaterally Impression and Plan 1. Suspected Obstructive Sleep Apnea-Hypopnea Syndrome, as suggested by a history of loud and irregular snoring, observed cessation of breath while asleep, gasping or choking in sleep, morning headache, frequent awakening during the night, unrefreshed sleep, cognitive impairment, and excessive daytime sleepiness. Narrow oropharynx and obesity are common predisposing factors for obstructive sleep apnea-hypopnea syndrome. I recommend proceeding to polysomnography to confirm the diagnosis and to assess severity. If the patient has significant sleep disordered breathing, a manual CPAP titration study will also be performed to find the optimal treatment pressure. I informed the patient of what the sleep studies involve and after some discussion, obtained agreement to proceed. The pathophysiology of obstructive sleep apnea-hypopnea syndrome was discussed with the patient and health risks of cardiovascular and cerebrovascular disease if not treated. AAS brochure for obstructive sleep apnea-hypopnea syndrome given and reviewed. Risks of drowsy driving discussed in detail and patient advised to avoid long distance driving and to ladle puller at the first sign of drowsiness. Patient agreed to plan. * Schedule polysomnography +- manual CPAP titration study and return in 1-2 weeks after the study to discuss result and initiate therapy. * Avoid long distance driving or driving when feeling sleepy. * Avoid alcohol, sedative and muscle relaxant around bedtime. * Attempt to lose weight. * Review instructions provided by trained office staff on how to prepare for the sleep study. * Return for follow-up after sleep study completed. Counseling Topics: Weight loss health impact Visit Type: In Office Time Spent with Patient (minutes): 32 Provider Statement: I spent 100% of the Face to Face Visit with the patient with greater than 50% spent counseling the patient and coordination of care.
== END 2021-02-26 14:09 | disposition home or self-care (01) ==
LOC: SC 14:08
PROVIDERS: ATTEND Nurse Practitioner Family
DX: G47.10 Hypersomnia, unspecified (principal); R06.81 Apnea, not elsewhere classified; R06.83 Snoring; G47.8 Other sleep disorders; R51.9 Headache, unspecified; R41.89 Other symptoms and signs involving cognitive functions and awareness; E66.01 Morbid (severe) obesity due to excess calories; Z68.41 Body mass index [BMI] 40.0-44.9, adult
CPT/HCPCS: 99203; 99212

== ENCOUNTER 2021-03-01 20:16 | Outpatient (CLI) | payer MEDICAID | END 2021-03-01 20:17 | disposition critical access hospital (66) | LOC: EMS 20:16 | DX: W01.0XXA Fall on same level from slipping, tripping and stumbling without subsequent striking against object, initial encounter (principal); Y92.008 Other place in unspecified non-institutional (private) residence as the place of occurrence of the external cause | CPT/HCPCS: A0425; A0427 ==

== ENCOUNTER 2021-03-01 20:54 | Emergency (ER) | payer MEDICAID ==
--- NOTE | 2021-03-01 21:03 | ED Physician Documentation ---
PD HPI Fall - Stated complaint Stated Complaint: GLF/ HEAD INJ - History obtained from History obtained from: EMS - Treatment prior to arrival Treatment prior to arrival: 51-year-old woman presents by ambulance as a modified trauma. Reported to be GCS 15 prior to arrival but clearly not now. All history is from the paramedics due to altered mental status. Reportedly drank a bottle of wine and then slipped on the grass Hitting her head. Review of Systems Unable to obtain: Confused, Intoxicated PD PAST MEDICAL HISTORY - Allergies Allergies/Adverse Reactions: Allergies Allergy/AdvReac Type Severity Reaction Status Date / Time No Known Drug Allergies Allergy Verified 03/01/21 21:01 PD ED PE NORMAL - Vitals Vital signs reviewed: Yes - General General: Other (Slow slurred speech, she can state her name but is otherwise useless historian.) - HEENT HEENT: Other (Small pupils) - Neck Neck: No bony TTP - Cardiac Cardiac: RRR, No murmur - Respiratory Respiratory: No respiratory distress, Clear bilaterally - Abdomen Abdomen: Non tender - Back Back: No CVA TTP, Other (Cries with palpation of the left posterior ribs) - Derm Derm: Normal color, Warm and dry - Extremities Extremities: No deformity, No tenderness to palpate, Normal ROM s pain, No edema, No calf tenderness / cord - Neuro Eye Opening: To Voice Motor: Localizes to Pain Verbal: Confused GCS Score: 12 Results - Vitals Vitals: Vital Signs - 24 hr 03/01/21 03/01/21 03/01/21 21:02 21:08 23:13 Temperature 36.5 C 36.5 C 36.8 C Heart Rate 82 82 72 Respiratory 18 18 16 Rate Blood Pressure 154/55 H 154/55 H 130/53 L O2 Saturation 94 94 95 03/02/21 00:50 Temperature 36.4 C L Heart Rate 70 Respiratory 14 Rate Blood Pressure 133/76 H O2 Saturation 100 Oxygen O2 Source Room air Oxygen Flow Rate 2 - Labs Labs: Laboratory Tests 03/01/21 03/01/21 03/01/21 21:08 21:08 21:08 WBC 9.5 RBC 4.19 L Hgb 13.6 Hct 41.6 MCV 99.3 H MCH 32.5 H MCHC 32.7 RDW 12.8 Plt Count 254 MPV 10.3 Neut # (Auto) 6.3 Lymph # (Auto) 2.5 [place] # (Auto) 0.4 Eos # (Auto) 0.2 Baso # (Auto) 0.0 Absolute Nucleated RBC 0.00 Nucleated RBC % 0.0 PT 11.7 INR 1.1 Sodium 140 Potassium 3.6 Chloride 99 L Carbon Dioxide 26 Anion Gap 15.0 H BUN 14 Creatinine 0.6 Estimated GFR (MDRD) 106 Glucose 242 H Calcium 9.3 Total Bilirubin 0.3 AST 57 H ALT 43 Alkaline Phosphatase 75 Total Protein 7.6 Albumin 4.3 Globulin 3.3 Albumin/Globulin Ratio 1.3 Lipase 22 Urine Color Urine Clarity Urine pH Ur Specific [place] Urine Protein Urine Glucose (UA) Urine Ketones Urine Occult Blood Urine Nitrite Urine Bilirubin Urine Urobilinogen Ur Leukocyte Esterase Ur Microscopic Review Urine Culture Comments Urine Opiates Screen Ur Oxycodone Screen Urine Methadone Screen Ur Propoxyphene Screen Ur Barbiturates Screen Ur Tricyclics Screen Ur Phencyclidine Scrn Ur Amphetamine Screen U Methamphetamines Scrn U Benzodiazepines Scrn Urine Cocaine Screen U Cannabinoids Screen Ethyl Alcohol 138.3 03/01/21 22:31 WBC RBC Hgb Hct MCV MCH MCHC RDW Plt Count MPV Neut # (Auto) Lymph # (Auto) [place] # (Auto) Eos # (Auto) Baso # (Auto) Absolute Nucleated RBC Nucleated RBC % PT INR Sodium Potassium Chloride Carbon Dioxide Anion Gap BUN Creatinine Estimated GFR (MDRD) Glucose Calcium Total Bilirubin AST ALT Alkaline Phosphatase Total Protein Albumin Globulin Albumin/Globulin Ratio Lipase Urine Color YELLOW Urine Clarity CLEAR Urine pH 6.0 Ur Specific [place] 1.010 Urine Protein NEGATIVE Urine Glucose (UA) 500 H Urine Ketones 15 H Urine Occult Blood NEGATIVE Urine Nitrite NEGATIVE Urine Bilirubin NEGATIVE Urine Urobilinogen 0.2 (NORMAL) Ur Leukocyte Esterase NEGATIVE Ur Microscopic Review NOT INDICATED Urine Culture Comments NOT INDICATED Urine Opiates Screen NEGATIVE Ur Oxycodone Screen POSITIVE H Urine Methadone Screen NEGATIVE Ur Propoxyphene Screen NEGATIVE Ur Barbiturates Screen NEGATIVE Ur Tricyclics Screen NEGATIVE Ur Phencyclidine Scrn NEGATIVE Ur Amphetamine Screen NEGATIVE U Methamphetamines Scrn NEGATIVE U Benzodiazepines Scrn NEGATIVE Urine Cocaine Screen NEGATIVE U Cannabinoids Screen NEGATIVE Ethyl Alcohol PD MEDICAL DECISION MAKING - ED course ED course: I spoke with the mom by phone. She is available at [phone]. We confirmed her demographics. She actually goes by another last name, Isra, and I have asked registration to merge her chart with medical record [id number]. Mom agrees she has problems with alcoholism and probably needs to be in treatment. Review of the chart shows that alcohol intoxication and trauma is not a new phenomenon. Also a suggestion that the back pain may be chronic. Care to Dr Melvin at shift change pending CT reads. Departure - Departure Disposition: 01 Home, Self Care Clinical Impression: Concussion Qualifiers: Encounter type: initial encounter Loss of consciousness presence/duration: with LOC of 30 min or less Qualified Code(s): S06.0X1A - Concussion with loss of consciousness of 30 minutes or less, initial encounter Alcohol intoxication Qualifiers: Complication of substance-induced condition: with delirium Qualified Code(s): F10.921 - Alcohol use, unspecified with intoxication delirium Back pain Qualifiers: Back pain location: thoracic back pain Chronicity: chronic Back pain laterality: midline Qualified Code(s): M54.6 - Pain in thoracic spine Fall Qualifiers: Encounter type: initial encounter Qualified Code(s): W19.XXXA - Unspecified fall, initial encounter Condition: Good Record reviewed to determine appropriate education?: Yes Instructions: ED Concussion, ED Alcohol Intoxication Comments: You are seen in the emergency department after a fall. You do not have any injuries on CT. Please follow-up with your primary doctor this week. Please try to cut back on your alcohol intake. Return to the emergency department if you have any new or worsening symptoms or other concerns. Discharge Date/Time: 03/02/21 00:50
[2021-03-01] MEDS ORDERED: IOVERSOL 320 100 ML VIAL IVP ONE ×2 (21:14→22:03)
[2021-03-01 21:20] LABS: BASOPHILS % (AUTO) 0.2 %; EOSINOPHILS # (AUTO) 0.2 10^3/uL (0.0-0.7); EOSINOPHILS % (AUTO) 2.2 %; HCT - HEMATOCRIT 41.6 % (37.0-47.0); HGB - HEMOGLOBIN 13.6 g/dL (12.0-16.0); LYMPHOCYTES # (AUTO) 2.5 10^3/uL (1.5-3.5); LYMPHOCYTES % (AUTO) 26.2 %; MEAN CORPUSCULAR HEMOGLOBIN 32.5 pg (27.0-31.0); MEAN CORPUSCULAR HGB CONC 32.7 g/dL (32.0-36.0); MEAN CORPUSCULAR VOLUME 99.3 fL (81.0-99.0); MEAN PLATELET VOLUME 10.3 fL (7.9-10.8); MONOCYTES # (AUTO) 0.4 10^3/uL (0.0-1.0); MONOCYTES % (AUTO) 4.3 %; NEUTROPHILS # (AUTO) 6.3 10^3/uL (1.5-6.6); NEUTROPHILS % (AUTO) 66.7 %; PLT - PLATELET COUNT 254 10^3/uL (130-450); RED BLOOD COUNT 4.19 10^6/uL (4.20-5.40); RED CELL DISTRIBUTION WIDTH 12.8 % (12.0-15.0); WHITE BLOOD COUNT 9.5 x10^3/uL (4.8-10.8)
--- NOTE | 2021-03-01 21:23 | XRAY Report ---
PROCEDURE: Chest 1 View X-Ray INDICATIONS: trauma TECHNIQUE: One view of the chest was acquired. COMPARISON: None FINDINGS: Surgical changes and devices: None. Lungs and pleura: No pleural effusions or pneumothorax. Lungs are clear. Mediastinum: Mediastinal contours appear normal. Heart size is normal. Bones and chest wall: No suspicious bony lesions. Overlying soft tissues appear unremarkable. IMPRESSION: No acute cardiopulmonary abnormality. Reviewed by: Alberto Orozco on 03/01/2021 9:22 PM PDT Approved by: Alberto Orozco on 03/01/2021 9:22 PM PDT Station ID: [id number]
[2021-03-01 21:29] LABS: INR 1.1 (0.8-1.2); PT - PROTHROMBIN TIME 11.7 secs (9.9-12.6)
[2021-03-01 21:30] LABS: ALBUMIN 4.3 g/dL (3.2-5.5); ALBUMIN/GLOBULIN RATIO 1.3 (1.0-2.2); BILIRUBIN,TOTAL 0.3 mg/dL (0.2-1.0); CALCIUM 9.3 mg/dL (8.5-10.3); CREATININE 0.6 mg/dL (0.4-1.0); ETOH - ETHANOL 138.3 mg/dL; POTASSIUM 3.6 mmol/L (3.5-5.0); TOTAL PROTEIN 7.6 g/dL (6.7-8.2)
[2021-03-01 22:35] LABS: MUDS CUTOFF CONCENTRATIONS CUTOFF CONC BELOW:
[2021-03-01 22:37] LABS: BILIRUBIN,URINE NEGATIVE (NEGATIVE); GLUCOSE, URINE (UA) 500 mg/dL (NEGATIVE); KETONES,URINE (UA) 15 mg/dL (NEGATIVE); LEUKOCYTE ESTERASE, URINE NEGATIVE (NEGATIVE); NITRITE,URINE NEGATIVE (NEGATIVE); OCCULT BLOOD,URINE NEGATIVE (NEGATIVE); PROTEIN,URINE NEGATIVE (NEGATIVE); UROBILINOGEN,URINE 0.2 (NORMAL) E.U./dL (NORMAL)
[2021-03-01 22:44] LABS: CLARITY,URINE CLEAR (CLEAR)
[2021-03-01 22:47] LABS: AMPHETAMINE SCREEN,URINE NEGATIVE (NEGATIVE); BARBITURATE SCREEN,UR NEGATIVE (NEGATIVE); BENZODIAZEPINES SCREEN, URINE NEGATIVE (NEGATIVE); COCAINE SCREEN URINE NEGATIVE (NEGATIVE); METHADONE SCREEN, URINE NEGATIVE (NEGATIVE); METHAMPHETAMINES SCREEN, URINE NEGATIVE (NEGATIVE); OPIATE SCREEN, URINE NEGATIVE (NEGATIVE); OXYCODONE SCREEN, URINE POSITIVE (NEGATIVE); PROPOXYPHENE SCREEN, URINE NEGATIVE (NEGATIVE); THC CANNABINOID SCREEN, URINE NEGATIVE (NEGATIVE); TRICYCLIC ANTIDEPRESSANT,URINE NEGATIVE (NEGATIVE)
[2021-03-01] MEDS ORDERED: ACETAMINOPHEN 325 MG TABLET PO STA (23:45)
--- NOTE | 2021-03-01 23:47 | ED Physician Documentation ---
ED Addendum - Addendum Addendum: 03/01/21 23:46 CT workup negative. Patient now awake alert, ambulatory without difficulty. She is endorsing bilateral lower back pain from the fall and requesting Tylenol and water. Tolerating oral. We will discharge her to her mother. Return precautions given. 03/01/21 23:46 Diagnosis 1. alcohol intoxication 2. fall 3. back pain 03/01/21 23:48
[2021-03-02 00:54] VITALS: BP 133/76
--- NOTE | 2021-03-02 08:06 | CT Report ---
PROCEDURE: HEAD WO INDICATIONS: Head trauma, abnormal mental status TECHNIQUE: Noncontrast 4.5 mm thick angled axial sections acquired from the foramen magnum to the vertex. For r adiation dose reduction, the following was used: automated exposure control, adjustment of mA and/or kV according to patient size. COMPARISON: None. FINDINGS: Image quality: Excellent. CSF spaces: Basal cisterns are patent. No extra-axial fluid collections. Ventricles are normal in size and shape. Brain: No midline shift. No intracranial masses or hemorrhage. Hankins-white matter interface is norm al. Skull and face: Calvarium and visualized facial bones are intact, without suspicious lesions. Sinuses: Visualized sinuses and mastoids are clear. IMPRESSION: No acute intracranial abnormality. Reviewed by: Alberto Orozco on 03/02/2021 8:05 AM PDT Approved by: Alberto Orozco on 03/02/2021 8:05 AM PDT Station ID: [id number]
--- NOTE | 2021-03-02 08:08 | CT Report ---
PROCEDURE: CERVICAL SPINE WO INDICATIONS: Neck trauma, midline tenderness TECHNIQUE: Noncontrast 3 mm thick sections acquired from the skull base to the T4 level. Sagittal and coronal r eformats were then constructed. For radiation dose reduction, the following was used: automated exp osure control, adjustment of mA and/or kV according to patient size. COMPARISON: None. FINDINGS: Image quality: Excellent. Bones: No fractures or dislocations. Visualized superior ribs are intact. Soft tissues: Prevertebral soft tissues are normal in thickness. No paravertebral hematomas. No ap ical pneumothoraces. IMPRESSION: Normal CT of the cervical spine. Reviewed by: Alberto Orozco on 03/02/2021 8:07 AM PDT Approved by: Alberto Orozco on 03/02/2021 8:07 AM PDT Station ID: [id number]
--- NOTE | 2021-03-02 08:10 | CT Report ---
PROCEDURE: Abdomen/Pelvis W INDICATIONS: Abdominal trauma, blunt CONTRAST: IV CONTRAST: Optiray 320 ml: 100 PO CONTRAST: *NO PO CONTRAST TECHNIQUE: After the administration of intravenous contrast, 5 mm thick sections acquired from the diaphragms to the symphysis. 5 mm thick coronal and sagittal reformats were acquired. For radiation dose reducti on, the following was used: automated exposure control, adjustment of mA and/or kV according to alie ent size. COMPARISON: Same day CT chest. FINDINGS: Image quality: Excellent. ABDOMEN: Lung bases: Lung bases are clear. Heart size is normal. Solid organs: Liver and spleen are within normal limits in size. Suspect hepatic steatosis. Gallbla dder is unremarkable Biliary system is non dilated. Pancreas enhances normally. No adrenal nodules . Kidneys demonstrate normal size and enhancement, without hydronephrosis. Cortical hypodensity at t he inferior pole left kidney likely a benign cyst. Peritoneum and bowel: Stomach is distended. No small bowel obstruction. No dilated loops of bowel. Di stal colon diverticulosis. There is mild stranding adjacent to the splenic flexure, (6/35). No fluid collection. Normal appendix. No pneumoperitoneum. Nodes and vessels: No retroperitoneal or mesenteric adenopathy by size criteria. Aorta and inferior vena cava are normal in size. Minimal calcified metastatic plaque. Miscellaneous: No ventral hernias. PELVIS: Genitourinary: Bladder wall thickness is normal. Anteverted uterus. Miscellaneous: No inguinal hernias or adenopathy. Bones: No suspicious bony lesions. No vertebral body compression fractures. IMPRESSION: Minimal stranding adjacent to the splenic flexure. This could be due to abdominal trauma or diverticu litis. No splenic laceration identified. No free fluid. No pneumoperitoneum. No significant discrepancy with the overnight preliminary interpretation. Reviewed by: Daniel Ivey MD on 03/02/2021 8:09 AM PDT Approved by: Daniel Ivey MD on 03/02/2021 8:09 AM PDT Station ID: [id number]
--- NOTE | 2021-03-02 08:15 | CT Report ---
PROCEDURE: CHEST W INDICATIONS: Chest trauma, blunt, low energy CONTRAST: IV CONTRAST: Optiray 320 ml: 100 PO CONTRAST: *NO PO CONTRAST TECHNIQUE: After the administration of intravenous contrast, 5 mm thick sections acquired from the pulmonary api amanda to the posterior costophrenic angles. 7 mm thick coronal MIP reformats were acquired. For radia tion dose reduction, the following was used: automated exposure control, adjustment of mA and/or kV according to patient size. COMPARISON: None. FINDINGS: Image quality: Excellent. Lungs and pleura: No acute air space opacities. There are areas of subsegmental atelectasis in the lungs bilaterally. No pleural effusions or pneumothorax. Central and peripheral airways are patent a nd normal in caliber. Mediastinum: Heart size is normal. No pericardial effusion. No mediastinal or hilar adenopathy by size criteria. Thoracic aorta and central pulmonary arteries are normal in size. Esophagus is magalie l in caliber. No hiatal hernia. Bones and chest wall: No suspicious bony lesions. No vertebral body compression fractures. No axil julian or supraclavicular adenopathy by size criteria. The thyroid is normal in size and there are no incidental findings.. Abdomen: Visualized upper abdominal solid organs appear normal. Upper abdominal bowel loops are nor mal in caliber. IMPRESSION: No acute traumatic abnormality of the chest. Reviewed by: Alberto Orozco on 03/02/2021 8:13 AM PDT Approved by: Ablerto Orozco on 03/02/2021 8:13 AM PDT Station ID: [id number]
== END 2021-03-02 00:50 | disposition home or self-care (01) ==
LOC: ED 20:54 → MERGE 20:54 → ED 03-02 00:50
DX: S06.0X1A Concussion with loss of consciousness of 30 minutes or less, initial encounter (principal); W01.0XXA Fall on same level from slipping, tripping and stumbling without subsequent striking against object, initial encounter; F10.921 Alcohol use, unspecified with intoxication delirium; M54.6 Pain in thoracic spine; M54.5 Low back pain
CPT/HCPCS: 36415; 70450; 71045; 71260; 72125; 74177; 80053; 80306; 80320; 81003; 83690; 85025; 85610; 99281; 99284; A9270; Q9967; 81001; 87086

== ENCOUNTER 2021-03-05 14:25 | Outpatient (CLI) | payer MEDICAID | END 2021-03-05 14:26 | disposition home or self-care (01) | LOC: SC 14:25 | PROVIDERS: ATTEND Nurse Practitioner Family | DX: G47.33 Obstructive sleep apnea (adult) (pediatric) (principal); E66.9 Obesity, unspecified; Z68.41 Body mass index [BMI] 40.0-44.9, adult | CPT/HCPCS: 95806 ==

== ENCOUNTER 2021-03-26 13:31 | Outpatient (CLI) | payer MEDICAID ==
--- NOTE | 2021-03-26 13:48 | SLEEP CARE CONSULTATION ---
Information from patient questionnaire entered by Kelly Dunlap. I have reviewed and concur with the information entered by Kelly Dunlap. This document represents the service I personally performed and the decisions made by , Kelly Moore ARNP. History of Present Illness Service Date and Time: 03/26/2021 1331 Initial [place] Sleepiness Scale score: 7 (in 2020) Current [place] Sleepiness Scale score: 3 Additional HPI information: NELLY SABILLON returns via Telehealth visit for follow up and results of the recently performed home sleep study. I explained the pathophysiology behind obstructive sleep apnea. We then spent quite a bit of time discussing different treatment options. For mild obstructive sleep apnea, surgery and oral appliance are alternatives to nasal CPAP therapy but in moderate or severe cases, nasal CPAP is the most effective and reliable treatment. Because apnea is primarily in supine position, then positional management therapy could be effective. Methods discussed such as positioning with pillows, using a T-shirt with tennis balls in the back, and shown commercial products that have a pillow format on back to prevent supine sleep. I reviewed the impact of weight changes on sleep apnea and strongly recommended losing weight. After some discussion, the patient opted to go with the nasal CPAP therapy. Nasal autoCPAP set at 4-15 cmH20 will be ordered with rationale explained. A manual titration study will be ordered if unable to find optimal pressure with office adjustments. I explained how CPAP machine works and what to expect when using the machine. Using CPAP every night in order to get used to it was emphasized. Patient advised to put CPAP mask on before getting into bed so as not to fall asleep without CPAP. To assist acclimation to CPAP use, it could also be used for a short time during day while reading or watching TV. The patient was instructed to call the CPAP supplier to discuss any mechanical problem that may occur. If the mask given is uncomfortable or is difficult to keep on through the night even with adjustment, contact the CPAP supplier as many will replace with another mask style if notified before 30 days. If snoring or perceives is not getting enough air or too much air from the machine, notify this office. Patient counseled not drink alcohol less than 4 hours before bedtime as it can increase snoring and apnea. Patient was cautioned about risks of drowsy driving until sleepiness symptoms resolve. Sleep Study - Results Type of Sleep Study: Home sleep study Prior sleep studies: No Polysomnography/Home Sleep Study results: Physician Impression: The quality of the study is good. The length of the study is adequate (> 240 minutes). Please also see the tabulated and graphic data. 1. Obstructive Sleep Apnea-Hypopnea (ICD-10 G47.33), extremely severe,, with an AHI of 100.5/hr and mando SaO2 of 58%. During the study, the patient had 643 apneas (642 obstructive, 0 central, 1 mixed) and 226 hypopneas. The longest episode lasted 67.0 seconds. The respiratory events occurred slightly more frequently during supine sleep (supine AHI was 114.1 and non-supine, 79.25). 2. Hypoxemia (ICD-10 R09.02), severe, with the lowest oxygen saturation of 58 % and 321.1 minutes with SaO2 under 90%. Baseline oxygen saturation was low (Average oxygen saturation was 87%). Allergies and Home Medications Home medication list reviewed: Yes (no new meds) Review of Systems Review of systems same as previous: Yes (no changes) Physical Exam Vital signs obtained and entered by: Telehealth visit, no vitals obtained Height: 5 ft 5 in Impression and Plan 1. Obstructive Sleep Apnea-Hypopnea Syndrome, extremely severe, with lowest oxygen saturation of 58%. Obviously this is the cause of the patients symptoms of unrefreshed sleep, and excessive daytime sleepiness. Positive pressure therapy could benefit hypertension, diabetes, anxiety, depression, gastric reflux, attention deficit and mood disorder (PTSD). As mentioned above, the patient will be started on nasal autoCPAP therapy with pressure set at 4-15 cmH2O. A manual titration study will be completed if unable to find optimal treatment pressure with office adjustments. Compliance guidelines also reviewed. A copy of compliance guidelines will be given for reference at check out. Because the apnea is more severe supine, I instructed to avoid sleeping supine using pillow positioning until able to start CPAP use. 2. Hypoxemia, severe, with the lowest oxygen saturation of 58 % and 321.1 minutes with SaO2 under 90%. Her baseline oxygen saturation was low with an average oxygen saturation of 87%. Patient advised to follow up with PCP due to low baseline oxygen saturation, consider underlying cardiopulmonary disorders such as COPD, congestive heart failure, obesity hypoventilation, etc. Further work up with PFTs, ABGs, may be beneficial. * Nasal auto CPAP therapy, pressure at 4-15 cm H2O, urgent setup. * Attempt to lose weight. * Avoid alcohol consumption near bedtime. * Avoid supine sleep until using CPAP. * The patient is again cautioned about driving until sleepiness completely resolves. * Return one month after CPAP obtained. I will assess response to therapy and compliance at that time. Counseling Topics: Weight loss health impact Visit Type: Telehealth Video Video Type: VSee Patient Location: Home Location of Provider: Office Patient agrees and consents to this telehealth visit type: Yes Patient agrees to have their insurance billed: Yes Time Spent with Patient (minutes): 21 Provider Statement: I spent 100% of the Telehealth Video Call with the patient with greater than 50% spent counseling the patient and coordination of care.
== END 2021-03-26 13:32 | disposition home or self-care (01) ==
LOC: SC 13:31
PROVIDERS: ATTEND Nurse Practitioner Family
DX: G47.33 Obstructive sleep apnea (adult) (pediatric) (principal); R09.02 Hypoxemia

== ENCOUNTER 2021-04-30 08:22 | Outpatient (CLI) | payer MEDICAID ==
[2021-04-30 15:18] LABS: CALCIUM 9.3 mg/dL (8.5-10.3); CREATININE 0.7 mg/dL (0.4-1.0); POTASSIUM 4.5 mmol/L (3.5-5.0)
[2021-04-30 15:25] LABS: CREATININE,URINE 164.9 mg/dL; MICROALBUM/CREATININE RATIO,UR 3.6 ug/mg (<30.0); MICROALBUMIN,URINE 0.6 mg/dL (0-300.0)
[2021-04-30 20:03] LABS: ESTIMATED AVERAGE GLUCOSE 197 mg/dL (70-100); HEMOGLOBIN A1c% 8.5 % (4.27-6.07)
== END 2021-04-30 08:23 | disposition home or self-care (01) ==
LOC: LAB.S 08:22
PROVIDERS: ATTEND Registered Nurse
DX: I10 Essential (primary) hypertension (principal); E11.41 Type 2 diabetes mellitus with diabetic mononeuropathy; E78.1 Pure hyperglyceridemia
CPT/HCPCS: 36415; 80048; 82043; 82570; 83036

== ENCOUNTER 2021-06-04 13:58 | Outpatient (CLI) | payer MEDICAID ==
--- NOTE | 2021-06-04 14:35 | SLEEP CARE CONSULTATION ---
Information from patient questionnaire entered by Kelly Dunlap. I have reviewed and concur with the information entered by Kelly Dunlap. This document represents the service I personally performed and the decisions made by , Kelly Moore ARNP. History of Present Illness Service Date and Time: 06/04/2021 1358 Previous diagnosis: Extremely Severe, Obstructive Sleep Apnea-Hypopnea Syndrome AHI: 100.5 (in 2020) Reason for follow up: first compliance Equipment type: CPAP Equipment obtained from: Other ([employer]; got initial supplies) Mask style: Nasal pillows Backup mask available: No (will keep old mask when replaced) Last cushion change: 1 month Prior sleep studies: Yes Year and Where: 2020 - [facility] Type of Sleep Study: Home sleep study HPI additional information: NELLY SABILLON was diagnosed to have extremely severe, AHI 100.5, obstructive sleep apnea-hypopnea syndrome and returned today for CPAP therapy first compliance follow-up. CPAP Compliance Data - Data Reviewed with Patient Average duration of nightly device use: 6 hr 18 min Compliance rate %: 90 Current pressure setting (cmH2O): 4-15 (95% avg 9.5) Average residual AHI: 3 Subjective Patient concerns: reports: dry mouth, nose, throat (dry mouth, sometimes). denies: aerophagia, mask discomfort, air blowing in eyes, mask leak noise, condensation in mask/hose, nasal congestion, epistaxis, other Observed to snore while using device: No Current pressure setting perceived as: comfortable On therapy, patient: reports: sleeping better, awakening more refreshed, being more awake and alert during the day, more rested overall. denies: drowsiness while driving Initial [place] Sleepiness Scale score: 7 (in 2020) Current [place] Sleepiness Scale score: 8 Allergies and Home Medications Home medication list reviewed: Yes (new DM med, unsure of name) Review of Systems Review of systems same as previous: Yes (no changes) Physical Exam Heart Rate: 61 O2 Saturation: 97 Height: 5 ft 5 in Weight: 244 lb Weight change since last visit: 10 pound loss Body Mass Index: 40.6 BMI Classification: Morbidly Obese Impression and Plan 1. Obstructive Sleep Apnea-Hypopnea Syndrome, extremely severe, with good t reatment compliance and good apnea control. On CPAP therapy, the patient has better sleep quality and is more rested overall. Patient is satisfied with current CPAP therapy and feels pressure is good and does not want the pressure too high. The patients pressure will be changed to autoCPAP 7-9 cmH20. Patient advised to contact me if pressure change is uncomfortable so that it can be adjusted. Goals for apnea control discussed. Patient gets occasional dry mouth. Oral dryness can be reduced by adjusting humidity setting higher or heated hose lower or by adjusting both settings. Patient has lost 10 pounds since her initial visit here. She is doing a combination of intermittent fasting and keto diet to help her lose weight. I encouraged her to continue her efforts. Patient's apnea severity and rationale for treatment to reduce apnea, improve sleep quality and reduce cardiovascular and cerebrovascular events was reviewed. I also reviewed the benefit of consistent device use of CPAP for hypertension, diabetes, gastric reflux, depression, anxiety, attention deficit and PTSD. * Change auto CPAP pressure to 7-9 cmH2O * Notify me if snoring with mask or feeling that the pressure is too much or too little * Attempt to lose weight * Call this office if any problems using CPAP * Return for follow up in 1-2 months, or sooner if concerns arise Counseling Topics: Spare mask, Weight loss health impact Visit Type: In Office Time Spent with Patient (minutes): 21 Provider Statement: I spent 100% of the Face to Face Visit with the patient with greater than 50% spent counseling the patient and coordination of care.
== END 2021-06-04 13:59 | disposition home or self-care (01) ==
LOC: SC 13:58
PROVIDERS: ATTEND Nurse Practitioner Family
DX: G47.33 Obstructive sleep apnea (adult) (pediatric) (principal); E66.01 Morbid (severe) obesity due to excess calories; Z68.41 Body mass index [BMI] 40.0-44.9, adult
CPT/HCPCS: 99212; 99213

== ENCOUNTER 2021-07-30 10:51 | Outpatient (CLI) | payer MEDICAID ==
[2021-07-30 15:37] LABS: BUN - BLOOD UREA NITROGEN 22 mg/dL (6-20); CALCIUM 9.6 mg/dL (8.5-10.3); CARBON DIOXIDE - CO2 25 mmol/L (21-32); CHLORIDE 103 mmol/L (101-111); CHOL/HDL RATIO 4.1 (<4.4); CHOLESTEROL 228 mg/dL; CREATININE 0.7 mg/dL (0.4-1.0); GFR - MDRD 89 (>89); GLUCOSE 109 mg/dL (70-100); HDL CHOLESTEROL 56 mg/dL; LDL CHOLESTEROL,CALCULATED 140 mg/dL; LDL/HDL RATIO 2.5 (<4.4); POTASSIUM 4.5 mmol/L (3.5-5.0); SODIUM 139 mmol/L (135-145); TRIGLYCERIDES 159 mg/dL; VLDL CHOLESTEROL 32 mg/dL
[2021-07-30 19:55] LABS: ESTIMATED AVERAGE GLUCOSE 143 mg/dL (70-100); HEMOGLOBIN A1c% 6.6 % (4.27-6.07)
== END 2021-07-30 10:52 | disposition home or self-care (01) ==
LOC: LAB.S 10:51
PROVIDERS: ATTEND Nurse Practitioner
DX: E11.65 Type 2 diabetes mellitus with hyperglycemia (principal); I15.2 Hypertension secondary to endocrine disorders; E78.2 Mixed hyperlipidemia
CPT/HCPCS: 36415; 80048; 80061; 83036; 83721

== ENCOUNTER 2021-08-12 14:47 | Outpatient (CLI) | payer MEDICAID ==
[2021-08-12 15:30] VITALS: BP 139/72
--- NOTE | 2021-08-12 15:30 | SLEEP CARE CONSULTATION ---
Information from patient questionnaire entered by Coleen Summers MA. I have reviewed and concur with the information entered by Coleen Summers MA. This document represents the service I personally performed and the decisions made by , Kelly Moore ARNP. History of Present Illness Service Date and Time: 08/12/2021 1447 Previous diagnosis: Extremely Severe, Obstructive Sleep Apnea-Hypopnea Syndrome Reason for follow up: other (2 month follow up , pressure change ) Equipment type: CPAP Equipment obtained from: Other ([employer]) Mask style: Nasal pillows Backup mask available: No (will need to keep mask when replaced) Type of Sleep Study: Home sleep study HPI additional information: NELLY SABILLON was diagnosed to have extremely severe, AHI 100.5, obstructive sleep apnea-hypopnea syndrome and returned today for CPAP therapy two month with pressure change follow-up. Sleep Study - Results Type of Sleep Study: Home sleep study Prior sleep studies: No CPAP Compliance Data - Data Reviewed with Patient Current pressure setting (cmH2O): 7-9 Compliance data discussion: Patient states she just got the pressure change about a week ago. She was able to do this herself with the help of a [facility] to [facility]. She states she has been using it every night. She will sometimes take it off when asleep. We are unable to access her compliance information. A call has been done to [employer] to have a compliance report faxed over. Subjective Missed days of use due to: reports: family emergency, other (power outage) Patient concerns: reports: mask leak noise (adjustment helps ), condensation in mask/hose. denies: aerophagia, mask discomfort, air blowing in eyes, nasal congestion, dry mouth, nose, throat, epistaxis, other Observed to snore while using device: No Current pressure setting perceived as: comfortable On therapy, patient: reports: sleeping better, awakening more refreshed, being more awake and alert during the day, more rested overall. denies: drowsiness while driving Initial Olar Sleepiness Scale score: 7 (in 2020) Current Olar Sleepiness Scale score: 8 (in 2020) Allergies and Home Medications Home medication list reviewed: Yes (Forxiga and another DM med (doesn't remember)) Review of Systems Review of systems same as previous: Yes (no changes) Physical Exam Vital signs obtained and entered by: Melina Hay CMA AAKB Blood Pressure: 139/72 (left) Cuff size: wrist Heart Rate: 61 O2 Saturation: 94 (with mask) Height: 5 ft 5 in Weight: 241 lb (with boots) Body Mass Index: 40.1 BMI Classification: Morbidly Obese Impression and Plan 1. Obstructive Sleep Apnea-Hypopnea Syndrome, extremely severe, with unknown treatment compliance and unknown apnea control. On CPAP therapy, the patient has better sleep quality and is more rested overall. Patient states she was unable to go to [employer] to get the pressure changed but with their help she was able to change it herself on her machine. It has only been changed for the last week. She does feel that it is more comfortable at this time. Patient's apnea severity and rationale for treatment to reduce apnea, improve sleep quality and reduce cardiovascular and cerebrovascular events was reviewed. I also reviewed the benefit of consistent device use of CPAP for hypertension, diabetes, gastric reflux, depression, anxiety, ADD and PTSD. Patient was enc ouraged to lose weight for their overall health and to reduce apneas. We were unable to obtain her compliance information because we were unable to get access. [facility] was contacted but we have yet to get a return phone call so we can get this information faxed to us. We will continue to try. Patient states she has been using her device nightly except on the night when there was a power outage and a family emergency. She is satisfied with current CPAP therapy and intends to continue to use her device. * Continue auto CPAP pressure at 7-9 cmH2O * Obtain compliance download * Notify me if snoring with mask or feeling that the pressure is too much or too little * Attempt to lose weight * Call this office if any problems using CPAP * Return for follow up in 3 months, or sooner if concerns arise Counseling Topics: Spare mask, Weight loss health impact Visit Type: In Office Time Spent with Patient (minutes): 27 Provider Statement: I spent 100% of the Face to Face Visit with the patient with greater than 50% spent counseling the patient and coordination of care.
== END 2021-08-12 14:48 | disposition home or self-care (01) ==
LOC: SC 14:47
PROVIDERS: ATTEND Nurse Practitioner Family
DX: G47.33 Obstructive sleep apnea (adult) (pediatric) (principal); E66.01 Morbid (severe) obesity due to excess calories; Z68.41 Body mass index [BMI] 40.0-44.9, adult
CPT/HCPCS: 99212; 99213

== ENCOUNTER 2021-08-16 14:10 | Outpatient (CLI) | payer MEDICAID ==
--- NOTE | 2021-08-18 14:08 | Mammography Report ---
BILATERAL DIGITAL SCREENING MAMMOGRAM 3D/2D: 08/16/2021 CLINICAL: Family history of breast cancer. Comparison is made to exams dated: 12/11/2019 mammogram, 08/10/2017 mammogram, 08/06/2016 mammogram, and 05/14/2014 mammogram - [facility]. There are scattered fibroglandular elements in both breasts. No significant masses, calcifications, or other findings are seen in either breast. There has been no significant interval change. IMPRESSION: NEGATIVE There is no mammographic evidence of malignancy. A 1 year screening mammogram is recommended. This exam was interpreted at Station ID: [id number]. NOTE: For mammograms, a report in lay terms will be sent to the patient. Approximately 15% of breast malignancies will not be visualized mammographically. In the management of a palpable breast mass, a negative mammogram must not discourage biopsy of a clinically suspicious lesion. Electronically Signed By: Brandon Garcia M.D. aty/penrad:08/17/2021 07:11:16 ACR BI-RADS Category 1: Negative 3341F PARENCHYMAL PATTERN: (A) - The breast(s) demonstrate(s) scattered fibroglandular densities. BI-RADS CATEGORY: (1) - 1 RECOMMENDATION: (ANNUAL) - Recommend routine annual screening mammography. [id number] 1 year screening LATERALITY: (B)
== END 2021-08-16 14:11 | disposition home or self-care (01) ==
LOC: DI.S 14:10
DX: Z12.31 Encounter for screening mammogram for malignant neoplasm of breast (principal); Z80.3 Family history of malignant neoplasm of breast

== ENCOUNTER 2021-11-11 08:00 | Outpatient (CLI) | payer MEDICAID | END 2021-11-11 23:59 | LOC: LAB.S 08:00 | PROVIDERS: ATTEND Physician Assistant Medical | DX: R05.1 Acute cough (principal); Z20.822 Contact with and (suspected) exposure to COVID-19 ==

== ENCOUNTER 2021-11-24 19:13 | Outpatient (CLI) | payer MEDICAID | END 2021-11-24 19:14 | disposition critical access hospital (66) | LOC: EMS 19:13 | DX: T43.212A Poisoning by selective serotonin and norepinephrine reuptake inhibitors, intentional self-harm, initial encounter (principal); Z72.89 Other problems related to lifestyle | CPT/HCPCS: A0425; A0427; A0999 ==

== ENCOUNTER 2021-11-24 19:48 | Emergency (ER) | payer MEDICAID ==
[2021-11-24 20:16] LABS: BASOPHILS % (AUTO) 0.4 %; EOSINOPHILS # (AUTO) 0.2 10^3/uL (0.0-0.7); EOSINOPHILS % (AUTO) 1.8 %; HCT - HEMATOCRIT 42.5 % (37.0-47.0); HGB - HEMOGLOBIN 14.4 g/dL (12.0-16.0); LYMPHOCYTES # (AUTO) 3.4 10^3/uL (1.5-3.5); LYMPHOCYTES % (AUTO) 37.7 %; MEAN CORPUSCULAR HEMOGLOBIN 33.1 pg (27.0-31.0); MEAN CORPUSCULAR HGB CONC 33.9 g/dL (32.0-36.0); MEAN CORPUSCULAR VOLUME 97.7 fL (81.0-99.0); MEAN PLATELET VOLUME 9.7 fL (7.9-10.8); MONOCYTES # (AUTO) 0.5 10^3/uL (0.0-1.0); MONOCYTES % (AUTO) 5.8 %; NEUTROPHILS # (AUTO) 4.9 10^3/uL (1.5-6.6); NEUTROPHILS % (AUTO) 54.1 %; PLT - PLATELET COUNT 272 10^3/uL (130-450); RED BLOOD COUNT 4.35 10^6/uL (4.20-5.40); RED CELL DISTRIBUTION WIDTH 12.9 % (12.0-15.0)
[2021-11-24 20:36] LABS: ACETAMINOPHEN < 10 ug/mL (10-30); ALBUMIN 4.3 g/dL (3.2-5.5); ALBUMIN/GLOBULIN RATIO 1.3 (1.0-2.2); ALKALINE PHOSPHATASE 51 IU/L (42-121); ALT ALANINE AMINOTRANSFERASE 31 IU/L (10-60); AST ASPARTATE AMINOTRANSFERASE 26 IU/L (10-42); BILIRUBIN,TOTAL 0.4 mg/dL (0.2-1.0); BUN - BLOOD UREA NITROGEN 11 mg/dL (6-20); CALCIUM 9.2 mg/dL (8.5-10.3); CARBON DIOXIDE - CO2 24 mmol/L (21-32); CHLORIDE 102 mmol/L (101-111); CREATININE 0.6 mg/dL (0.4-1.0); GFR - MDRD 106 (>89); GLUCOSE 187 mg/dL (70-100); LIPASE 59 U/L (22-51); POTASSIUM 3.8 mmol/L (3.5-5.0); SALICYLATE < 6.0 mg/dL; SODIUM 140 mmol/L (135-145); TOTAL PROTEIN 7.7 g/dL (6.7-8.2)
[2021-11-24 20:37] LABS: MUDS CUTOFF CONCENTRATIONS CUTOFF CONC BELOW:
[2021-11-24 20:39] LABS: BILIRUBIN,URINE NEGATIVE (NEGATIVE); GLUCOSE, URINE (UA) 500 mg/dL (NEGATIVE); KETONES,URINE (UA) TRACE mg/dL (NEGATIVE); LEUKOCYTE ESTERASE, URINE NEGATIVE (NEGATIVE); NITRITE,URINE NEGATIVE (NEGATIVE); OCCULT BLOOD,URINE NEGATIVE (NEGATIVE); PROTEIN,URINE NEGATIVE (NEGATIVE); UROBILINOGEN,URINE 0.2 (NORMAL) E.U./dL (NORMAL)
[2021-11-24 20:41] LABS: CLARITY,URINE CLEAR (CLEAR); HCG UR QUAL NEGATIVE
[2021-11-24 20:50] LABS: AMPHETAMINE SCREEN,URINE NEGATIVE (NEGATIVE); BARBITURATE SCREEN,UR NEGATIVE (NEGATIVE); BENZODIAZEPINES SCREEN, URINE NEGATIVE (NEGATIVE); COCAINE SCREEN URINE NEGATIVE (NEGATIVE); METHADONE SCREEN, URINE NEGATIVE (NEGATIVE); METHAMPHETAMINES SCREEN, URINE NEGATIVE (NEGATIVE); OPIATE SCREEN, URINE NEGATIVE (NEGATIVE); OXYCODONE SCREEN, URINE NEGATIVE (NEGATIVE); PROPOXYPHENE SCREEN, URINE NEGATIVE (NEGATIVE); THC CANNABINOID SCREEN, URINE NEGATIVE (NEGATIVE); TRICYCLIC ANTIDEPRESSANT,URINE NEGATIVE (NEGATIVE)
--- NOTE | 2021-11-24 21:03 | ED Physician Documentation ---
PD HPI MHE - Stated complaint Stated Complaint: SI/OD - Chief complaint Chief Complaint: General - History obtained from History obtained from: Patient - History of Present Illness Primary symptom: Self harm - OD, Other (intoxication) Timing - onset: Today (tonight (cannot provide time of overdose)) Pain level now: 0 Contributing factors: Substance abuse - ETOH Recently seen: Not recently seen - Additional information Additional information: patient says to me "I need detox for alcohol". She says she drinks wine on a daily basis. She cannot recall the last time she was sober for more than 48 hours, although she is very slurred (speech) on this HPI so not clear if she understands some of my questions. She also says she intentionally overdosed on trazadone. She says she doesn't know how many but estimates "twenty or thirty or forty" (per patient). 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: Tubal ligation Cardiovascular: Cardiac catheterization HEENT: Rhinoplasty - Present Medications Home Medications: Ambulatory Orders Medication Instructions Recorded Confirmed Losartan [Cozaar] 100 mg PO DAILY 12/24/15 11/24/21 Metformin HCl 1,000 mg PO BID 12/24/15 11/24/21 Disulfiram 500 mg PO DAILY 07/04/17 11/24/21 Fluoxetine HCl 60 mg PO DAILY 07/04/17 11/24/21 traZODone [Desyrel] 1 - 4 tab PO QPM 07/04/17 11/24/21 Atorvastatin [Lipitor] 10 mg PO QPM 11/21/19 11/24/21 Buspirone HCl 30 mg PO BID 11/21/19 11/24/21 Gabapentin 300 mg PO DAILY 11/21/19 11/24/21 Gabapentin 600 mg PO QPM 11/21/19 11/24/21 Ibuprofen [Motrin] 800 mg PO DAILY PRN 11/21/19 11/24/21 amLODIPine [Norvasc] 10 mg PO DAILY 11/21/19 11/24/21 HYDROcod/ACETAM 5/325 [[place] 5/325] 1 ea PO Q6H PRN #12 tablet 09/06/20 11/24/21 Ibuprofen [Motrin] 600 mg PO TID PRN #25 tab 09/06/20 11/24/21 Meclizine [Antivert] 25 mg PO Q6H PRN #20 tablet 09/06/20 11/24/21 Ondansetron Odt [Zofran] 4 mg TL Q6H PRN #10 tablet 09/06/20 11/24/21 - Allergies Allergies/Adverse Reactions: Allergies Allergy/AdvReac Type Severity Reaction Status Date / Time No Known Drug Allergies Allergy Verified 11/24/21 19:55 - Social History Does the pt smoke?: No Smoking Status: Never smoker Does the pt drink ETOH?: Yes Does the pt have substance abuse?: Yes - Immunizations Immunizations are current?: Yes - POLST Patient has POLST: No POLST Status: Full Code PD ED PE NORMAL - Vitals Vital signs reviewed: Yes - General General: Alert and oriented X 3, No acute distress, Well developed/nourished, Other (markedly slurred speech) - HEENT HEENT: PERRL, EOMI - Neck Neck: Supple, no meningeal sign - Cardiac Cardiac: RRR, No murmur - Respiratory Respiratory: No respiratory distress, Clear bilaterally - Abdomen Abdomen: Soft, Non tender Results - Vitals Vitals: Vital Signs - 24 hr 11/24/21 11/24/21 11/24/21 19:55 20:06 20:30 Temperature 36.3 C L Heart Rate 77 75 Respiratory 15 17 Rate Blood Pressure 131/64 H 134/78 H O2 Saturation 95 97 94 11/24/21 11/24/21 11/24/21 21:00 21:30 22:00 Temperature Heart Rate 77 84 89 Respiratory 21 18 16 Rate Blood Pressure 144/88 H 114/83 H 118/55 L O2 Saturation 94 93 93 11/24/21 11/24/21 11/24/21 22:30 23:00 23:30 Temperature Heart Rate 82 81 77 Respiratory 16 16 16 Rate Blood Pressure 100/58 L 108/63 102/58 L O2 Saturation 92 95 95 11/25/21 11/25/21 11/25/21 00:00 00:30 01:00 Temperature Heart Rate 76 76 78 Respiratory 15 15 16 Rate Blood Pressure 97/60 106/59 L 100/58 L O2 Saturation 93 95 94 11/25/21 11/25/21 11/25/21 01:30 02:00 02:30 Temperature Heart Rate 75 77 78 Respiratory 14 16 19 Rate Blood Pressure 102/58 L 127/62 103/66 O2 Saturation 93 96 96 11/25/21 11/25/21 11/25/21 03:00 03:30 04:00 Temperature 36.5 C Heart Rate 71 75 69 Respiratory 19 16 15 Rate Blood Pressure 100/51 L 113/52 L 147/70 H O2 Saturation 94 94 93 11/25/21 11/25/21 11/25/21 05:00 06:00 07:00 Temperature Heart Rate 69 77 73 Respiratory 15 15 18 Rate Blood Pressure 150/63 H 129/53 L 130/65 O2 Saturation 96 98 97 11/25/21 08:00 Temperature 37.1 C Heart Rate 74 Respiratory 19 Rate Blood Pressure 162/101 H O2 Saturation 94 Oxygen O2 Source Nasal cannula - EKG (time done) No standard instances Rate: Rate (enter#) (77) [place]: LAD (borderline LAD) Intervals: Normal OR QRS: Normal Ischemia: Normal ST segments - Labs Labs: Laboratory Tests 11/24/21 11/24/21 11/24/21 20:08 20:10 20:10 WBC 9.0 RBC 4.35 Hgb 14.4 Hct 42.5 MCV 97.7 MCH 33.1 H MCHC 33.9 RDW 12.9 Plt Count 272 MPV 9.7 Neut # (Auto) 4.9 Lymph # (Auto) 3.4 Rock # (Auto) 0.5 Eos # (Auto) 0.2 Baso # (Auto) 0.0 Absolute Nucleated RBC 0.00 Nucleated RBC % 0.0 Sodium 140 Potassium 3.8 Chloride 102 Carbon Dioxide 24 Anion Gap 14.0 H BUN 11 Creatinine 0.6 Estimated GFR (MDRD) 106 Glucose 187 H Calcium 9.2 Total Bilirubin 0.4 AST 26 ALT 31 Alkaline Phosphatase 51 Total Protein 7.7 Albumin 4.3 Globulin 3.4 Albumin/Globulin Ratio 1.3 Lipase 59 H TSH Urine Color Urine Clarity Urine pH Ur Specific Parrish Urine Protein Urine Glucose (UA) Urine Ketones Urine Occult Blood Urine Nitrite Urine Bilirubin Urine Urobilinogen Ur Leukocyte Esterase Ur Microscopic Review Urine Culture Comments Urine HCG, Qual Nasal Adenovirus (PCR) NOT DETECTED Nasal B. parapertussis DNA (PCR) NOT DETECTED Nasal Coronavir 229E PCR NOT DETECTED Nasal Coronavir HKU1 PCR NOT DETECTED Nasal Coronavir NL63 PCR NOT DETECTED Nasal Coronavir OC43 PCR NOT DETECTED Nasal Enterovir/Rhinovir PCR NOT DETECTED Nasal Influenza B PCR NOT DETECTED Nasal Influenza A PCR NOT DETECTED Nasal Parainfluen 1 PCR NOT DETECTED Nasal Parainfluen 2 PCR NOT DETECTED Nasal Parainfluen 3 PCR NOT DETECTED Nasal Parainfluen 4 PCR NOT DETECTED Nasal RSV (PCR) NOT DETECTED Nasal B.pertussis DNA PCR NOT DETECTED Nasal C.pneumoniae (PCR) NOT DETECTED Ayan Human Metapneumo PCR NOT DETECTED Nasal M.pneumoniae (PCR) NOT DETECTED Nasal SARS-CoV-2 (PCR) NOT DETECTED Salicylates < 6.0 Urine Opiates Screen Ur Oxycodone Screen Urine Methadone Screen Ur Propoxyphene Screen Acetaminophen < 10 L Ur Barbiturates Screen Ur Tricyclics Screen Ur Phencyclidine Scrn Ur Amphetamine Screen U Methamphetamines Scrn U Benzodiazepines Scrn Urine Cocaine Screen U Cannabinoids Screen Ethyl Alcohol 211.0 11/24/21 11/24/21 11/25/21 20:10 20:29 02:35 WBC RBC Hgb Hct MCV MCH MCHC RDW Plt Count MPV Neut # (Auto) Lymph # (Auto) Rock # (Auto) Eos # (Auto) Baso # (Auto) Absolute Nucleated RBC Nucleated RBC % Sodium Potassium Chloride Carbon Dioxide Anion Gap BUN Creatinine Estimated GFR (MDRD) Glucose Calcium Total Bilirubin AST ALT Alkaline Phosphatase Total Protein Albumin Globulin Albumin/Globulin Ratio Lipase TSH 1.25 Urine Color YELLOW Urine Clarity CLEAR Urine pH 6.0 Ur Specific Parrish 1.015 Urine Protein NEGATIVE Urine Glucose (UA) 500 H Urine Ketones TRACE Urine Occult Blood NEGATIVE Urine Nitrite NEGATIVE Urine Bilirubin NEGATIVE Urine Urobilinogen 0.2 (NORMAL) Ur Leukocyte Esterase NEGATIVE Ur Microscopic Review NOT INDICATED Urine Culture Comments NOT INDICATED Urine HCG, Qual NEGATIVE Nasal Adenovirus (PCR) Nasal B. parapertussis DNA (PCR) Nasal Coronavir 229E PCR Nasal Coronavir HKU1 PCR Nasal Coronavir NL63 PCR Nasal Coronavir OC43 PCR Nasal Enterovir/Rhinovir PCR Nasal Influenza B PCR Nasal Influenza A PCR Nasal Parainfluen 1 PCR Nasal Parainfluen 2 PCR Nasal Parainfluen 3 PCR Nasal Parainfluen 4 PCR Nasal RSV (PCR) Nasal B.pertussis DNA PCR Nasal C.pneumoniae (PCR) Ayan Human Metapneumo PCR Nasal M.pneumoniae (PCR) Nasal SARS-CoV-2 (PCR) Salicylates Urine Opiates Screen NEGATIVE Ur Oxycodone Screen NEGATIVE Urine Methadone Screen NEGATIVE Ur Propoxyphene Screen NEGATIVE Acetaminophen Ur Barbiturates Screen NEGATIVE Ur Tricyclics Screen NEGATIVE Ur Phencyclidine Scrn NEGATIVE Ur Amphetamine Screen NEGATIVE U Methamphetamines Scrn NEGATIVE U Benzodiazepines Scrn NEGATIVE Urine Cocaine Screen NEGATIVE U Cannabinoids Screen NEGATIVE Ethyl Alcohol 75.8 PD MEDICAL DECISION MAKING - ED course Complexity details: reviewed old records, reviewed results, re-evaluated patient, considered differential, d/w patient ED course: patient presents requesting detox "from alcohol" (per patient). She also says she overdosed on trazadone but denies this was a suicide attempt; she cannot offer an explanation as to why she overdosed on the trazadone. She is very slurred (speech), appears anxious and thus given 2mg IV lorazepam. She slept for the remainder of my shift, plan is to reevaluate in the AM when she is awake , alert, sober, and can provide a more reliable and clear goal for this ED visit (such as wanting inpatient detox, or possibly needing inpatient MHE if she had suicidal intent). I reevaluated patient at 8:30 AM 11/25/21; she is eating breakfast. She is interested in options for detox/rehab from alcohol. She says she attended an AA meeting yesterday and became overwhelmed thinking about having to get sober and going through the twelve steps and this led her to feelings of guilt and despair and thus she drank more alcohol and then took the trazadone. She says she wasn't intending to kill herself with the overdose of trazadone; she says "I just wanted to sleep" Care of patient turned over to oncoming ED physician at end of my shift, pending SW consult. Departure - Departure Clinical Impression: Alcoholism Alcoholic intoxication Qualifiers: Complication of substance-induced condition: uncomplicated Qualified Code(s): F10.920 - Alcohol use, unspecified with intoxication, uncomplicated Medication overdose Qualifiers: Encounter type: initial encounter Injury intent: undetermined intent Qualified Code(s): T50.904A - Poisoning by unspecified drugs, medicaments and biological substances, undetermined, initial encounter Condition: Good Instructions: ED Alcohol Intoxication, ED Overdose Intentional
[2021-11-24] MEDS ORDERED: LORazepam 2 MG/ML VIAL IVP STA ×2 (21:05→21:14)
[2021-11-24 21:08] LABS: B. PARAPERTUSSIS- RESP PCR PAN NOT DETECTED; B. PERTUSSIS- RESP PCR PANEL NOT DETECTED; C. PNEUMONIAE- RESP PCR PANEL NOT DETECTED; CORONAVIRUS 229E-RESP PCR NOT DETECTED; CORONAVIRUS HKU1-RESP PCR NOT DETECTED; CORONAVIRUS NL63-RESP PCR NOT DETECTED; CORONAVIRUS OC43-RESP PCR NOT DETECTED; HUMAN METAPNEUMOVIRUS NOT DETECTED; INFLUENZA A- RESP PCR PANEL NOT DETECTED; INFLUENZA B - RESP PCR PANEL NOT DETECTED; M. PNEUMONIAE- RESP PCR PANEL NOT DETECTED; PARAINFLUENZA VIRUS 1 NOT DETECTED; PARAINFLUENZA VIRUS 2 NOT DETECTED; PARAINFLUENZA VIRUS 3 NOT DETECTED; PARAINFLUENZA VIRUS 4 NOT DETECTED; RHINOVIRUS/ENTEROVIRUS NOT DETECTED; RSV- RESP PCR PANEL NOT DETECTED; SARS-CoV-2 -RESP PCR PANEL NOT DETECTED
[2021-11-25] MEDS ORDERED: PHENobarbital 65 MG/ML VIAL IV STA (09:40)
[2021-11-25 15:02] VITALS: BP 157/78
== END 2021-11-25 15:01 | disposition home or self-care (01) ==
LOC: EDUNIT# → ED 19:48
DX: F10.920 Alcohol use, unspecified with intoxication, uncomplicated (principal); T50.904A Poisoning by unspecified drugs, medicaments and biological substances, undetermined, initial encounter; I10 Essential (primary) hypertension; E11.42 Type 2 diabetes mellitus with diabetic polyneuropathy; Z79.84 Long term (current) use of oral hypoglycemic drugs; Z20.822 Contact with and (suspected) exposure to COVID-19
CPT/HCPCS: 0202U; 36415; 80053; 80306; 80307; 80320; 80329; 81003; 81025; 83690; 84443; 85025; 93005; 96374; 99281; 99284; J2060; 81001; 87086

== ENCOUNTER 2022-01-07 07:43 | Outpatient (CLI) | payer MEDICAID ==
[2022-01-07 14:50] LABS: CHOL/HDL RATIO 3.8 (<4.4); CHOLESTEROL 175 mg/dL; HDL CHOLESTEROL 46 mg/dL; LDL CHOLESTEROL,CALCULATED 96 mg/dL; LDL/HDL RATIO 2.1 (<4.4); TRIGLYCERIDES 165 mg/dL; VLDL CHOLESTEROL 33 mg/dL
== END 2022-01-07 07:44 | disposition home or self-care (01) ==
LOC: LAB.S 07:43
PROVIDERS: ATTEND Nurse Practitioner
DX: E11.65 Type 2 diabetes mellitus with hyperglycemia (principal)
CPT/HCPCS: 36415; 80061; 81599; 83036; 83721

== ENCOUNTER 2022-06-15 11:50 | Outpatient (CLI) | payer MEDICAID ==
[2022-06-15 19:15] LABS: ESTIMATED AVERAGE GLUCOSE 128 mg/dL (70-100); HEMOGLOBIN A1c% 6.1 % (4.27-6.07)
== END 2022-06-15 11:51 | disposition home or self-care (01) ==
LOC: LAB.S 11:50
PROVIDERS: ATTEND Nurse Practitioner
DX: E11.65 Type 2 diabetes mellitus with hyperglycemia (principal)
CPT/HCPCS: 36415; 83036

== ENCOUNTER 2022-07-15 08:00 | Outpatient (CLI) | payer MEDICAID ==
--- NOTE | 2022-07-15 19:39 | XRAY Report ---
PROCEDURE: Lumbar Spine 2 View INDICATIONS: CHRONIC LOW BACK PAIN TECHNIQUE: 2 views of the lumbar spine were acquired. COMPARISON: None. FINDINGS: Bones: 5 [id number] vertebrae are present. There is normal bony alignment. No vertebral body compression fractures. No suspicious bony lesions. Soft tissues: Overlying bowel gas pattern is normal. No suspicious soft tissue calcifications. IMPRESSION: Normal lumbar spine radiographs Reviewed by: Marcelo Brown MD on 07/15/2022 6:38 PM [id number] Approved by: Marcelo Brwon MD on 07/15/2022 6:38 PM AKDT Station ID: [id number]
== END 2022-07-15 23:59 | disposition home or self-care (01) ==
LOC: DI.S 08:00
PROVIDERS: ATTEND Physician Assistant
DX: M54.50 Low back pain, unspecified (principal); G89.29 Other chronic pain

== ENCOUNTER 2022-08-01 07:50 | Outpatient (CLI) | payer MEDICAID | END 2022-08-01 07:51 | disposition EMS.NT | LOC: EMS 07:50 | DX: U07.1 COVID-19 (principal) ==

== ENCOUNTER 2022-09-02 09:25 | Outpatient (CLI) | payer MEDICAID ==
--- NOTE | 2022-09-03 10:37 | Mammography Report ---
BILATERAL DIGITAL SCREENING MAMMOGRAM 3D/2D: 09/02/2022 CLINICAL: Routine screening. Family history of breast cancer. Comparison is made to exams dated: 08/16/2021 mammogram, 12/11/2019 mammogram, and 08/10/2017 mammogr am - [facility]. There are scattered areas of fibroglandular density in both breasts (category b / 25%-50% glandular t issue). No significant masses, calcifications, or other findings are seen in either breast. There has been no significant interval change. IMPRESSION: NEGATIVE There is no mammographic evidence of malignancy. A 1 year screening mammogram is recommended. Based on Tyrer-Cuzick model (a risk assessment model), the patient's lifetime risk is 21.8% and her 1 0 year risk is 5.8%. If a patient has an elevated risk, a more comprehensive evaluation should be con sidered and/or a referral to a genetic counselor. The [place] [employer], [employer], and NCCN Guidelines advise the consideration of Breast MRI as an adjunct to screening mammog sonia in patients whose "Lifetime risk to develop breast cancer" is 20% or higher. This exam was interpreted at Station ID: [id number]. NOTE: For mammograms, a report in lay terms will be sent to the patient. Approximately 15% of breast malignancies will not be visualized mammographically. In the management of a palpable breast mass, a negative mammogram must not discourage biopsy of a clinically suspicious lesion. Electronically Signed By: Narciso verdugo/penrad:09/02/2022 12:21:00 ACR BI-RADS Category 1: Negative 3341F PARENCHYMAL PATTERN: (A) - The breast(s) demonstrate(s) scattered fibroglandular densities. BI-RADS CATEGORY: (1) - 1 RECOMMENDATION: (ANNUAL) - Recommend routine annual screening mammography. [id number] 1 year screening LATERALITY: (B)
== END 2022-09-02 09:26 | disposition home or self-care (01) ==
LOC: DI.S 09:25
PROVIDERS: ATTEND Registered Nurse
DX: Z12.31 Encounter for screening mammogram for malignant neoplasm of breast (principal); Z80.3 Family history of malignant neoplasm of breast

== ENCOUNTER 2022-09-07 07:31 | Outpatient (CLI) | payer MEDICAID ==
[2022-09-07 15:10] LABS: BASOPHILS % (AUTO) 0.5 %; EOSINOPHILS # (AUTO) 0.1 10^3/uL (0.0-0.7); EOSINOPHILS % (AUTO) 1.6 %; HCT - HEMATOCRIT 43.9 % (37.0-47.0); LYMPHOCYTES % (AUTO) 22.5 %; MEAN CORPUSCULAR HEMOGLOBIN 32.2 pg (27.0-31.0); MEAN CORPUSCULAR HGB CONC 31.9 g/dL (32.0-36.0); MEAN CORPUSCULAR VOLUME 100.9 fL (81.0-99.0); MEAN PLATELET VOLUME 10.7 fL (7.9-10.8); MONOCYTES # (AUTO) 0.7 10^3/uL (0.0-1.0); MONOCYTES % (AUTO) 7.4 %; NEUTROPHILS # (AUTO) 5.9 10^3/uL (1.5-6.6); NEUTROPHILS % (AUTO) 67.7 %; PLT - PLATELET COUNT 265 10^3/uL (130-450); RED BLOOD COUNT 4.35 10^6/uL (4.20-5.40); RED CELL DISTRIBUTION WIDTH 13.8 % (12.0-15.0); WHITE BLOOD COUNT 8.8 x10^3/uL (4.8-10.8)
[2022-09-07 15:32] LABS: ALBUMIN 4.3 g/dL (3.2-5.5); ALBUMIN/GLOBULIN RATIO 1.3 (1.0-2.2); ALKALINE PHOSPHATASE 60 IU/L (42-121); ALT ALANINE AMINOTRANSFERASE 36 IU/L (10-60); AST ASPARTATE AMINOTRANSFERASE 29 IU/L (10-42); BILIRUBIN,TOTAL 0.5 mg/dL (0.2-1.0); BUN - BLOOD UREA NITROGEN 16 mg/dL (6-20); CALCIUM 9.2 mg/dL (8.5-10.3); CARBON DIOXIDE - CO2 25 mmol/L (21-32); CHLORIDE 104 mmol/L (101-111); CHOL/HDL RATIO 4.2 (<4.4); CHOLESTEROL 195 mg/dL; CREATININE 0.7 mg/dL (0.4-1.0); GFR - MDRD 88 (>89); GLUCOSE 160 mg/dL (70-100); HDL CHOLESTEROL 46 mg/dL; LDL CHOLESTEROL,CALCULATED 105 mg/dL; LDL/HDL RATIO 2.3 (<4.4); POTASSIUM 4.6 mmol/L (3.5-5.0); SODIUM 138 mmol/L (135-145); TOTAL PROTEIN 7.6 g/dL (6.7-8.2); TRIGLYCERIDES 221 mg/dL; VLDL CHOLESTEROL 44 mg/dL
[2022-09-07 15:34] LABS: THYROID STIMULATING HORMONE 0.48 uIU/mL (0.34-5.60)
[2022-09-07 15:44] LABS: MICROALBUM/CREATININE RATIO,UR 8.4 ug/mg (<30.0); MICROALBUMIN,URINE 1.7 mg/dL (0-300.0)
[2022-09-07 21:33] LABS: ESTIMATED AVERAGE GLUCOSE 143 mg/dL (70-100); HEMOGLOBIN A1c% 6.6 % (4.27-6.07)
== END 2022-09-07 07:32 | disposition home or self-care (01) ==
LOC: LAB.S 07:31
PROVIDERS: ATTEND Registered Nurse
DX: Z79.899 Other long term (current) drug therapy (principal); Z13.220 Encounter for screening for lipoid disorders; R73.9 Hyperglycemia, unspecified; Z13.29 Encounter for screening for other suspected endocrine disorder
CPT/HCPCS: 36415; 80053; 80061; 82043; 82570; 83036; 83721; 84443; 85025

== ENCOUNTER 2023-01-23 19:37 | Outpatient (CLI) | payer MEDICAID | END 2023-01-23 23:59 | disposition critical access hospital (66) | LOC: EMS 19:37 | DX: R06.00 Dyspnea, unspecified (principal); R06.2 Wheezing; R46.89 Other symptoms and signs involving appearance and behavior; F10.90 Alcohol use, unspecified, uncomplicated | CPT/HCPCS: A0425; A0427; A0999 ==

== ENCOUNTER 2023-01-23 20:12 | Inpatient (IN) | payer MEDICAID ==
[2023-01-23 20:39] LABS: BASOPHILS % (AUTO) 0.4 %; EOSINOPHILS # (AUTO) 0.2 10^3/uL (0.0-0.7); EOSINOPHILS % (AUTO) 2.2 %; HCT - HEMATOCRIT 44.5 % (37.0-47.0); HGB - HEMOGLOBIN 14.1 g/dL (12.0-16.0); LYMPHOCYTES # (AUTO) 3.4 10^3/uL (1.5-3.5); LYMPHOCYTES % (AUTO) 36.6 %; MEAN CORPUSCULAR HEMOGLOBIN 31.8 pg (27.0-31.0); MEAN CORPUSCULAR HGB CONC 31.7 g/dL (32.0-36.0); MEAN CORPUSCULAR VOLUME 100.2 fL (81.0-99.0); MEAN PLATELET VOLUME 9.9 fL (7.9-10.8); MONOCYTES # (AUTO) 0.6 10^3/uL (0.0-1.0); MONOCYTES % (AUTO) 5.9 %; NEUTROPHILS % (AUTO) 54.6 %; PLT - PLATELET COUNT 244 10^3/uL (130-450); RED BLOOD COUNT 4.44 10^6/uL (4.20-5.40); RED CELL DISTRIBUTION WIDTH 12.8 % (12.0-15.0); WHITE BLOOD COUNT 9.3 x10^3/uL (4.8-10.8)
--- OUTSIDE RECORDS SUMMARY | 2023-01-23 20:40 | EXTERNAL MEDICAL SUMMARY RPT | Continuity of Care Document ---
:1970 Author Organization [facility] Address [address] [place] [address] Phone Care Team Providers Name Role Phone Unavailable Unavailable Unavailable Marycruz Nova Unavailable Unavailable Allergies No information. Encounters No information. Functional Status No information. Immunizations No information. Medications date description facility 2022-10-30 00:00 amoxicillin-pot clavulanate [facility] [place] 2022-10-30 00:00 amoxicillin-pot clavulanate [facility] [place] 2022-10-30 00:00 DEXAMETHASONE SODIUM PHOSPHATE [facility] [place] 2023-01-10 00:00 PREDNISONE [facility] [place] 2022-10-30 00:00 amoxicillin-pot clavulanate [facility] [place] 2022-10-30 00:00 amoxicillin-pot clavulanate [facility] [place] Problems date description facility 2022-10-30 00:00 Gastroesophageal reflux disease [facility] [place] 2022-10-30 00:00 Acute asthma [facility] [place] 2022-10-30 00:00 Hypertriglyceridemia [facility] Pr imary [facility] [place] 2022-10-30 00:00 Depressive disorder, not elsewhere [facility] classified [facility] [place] 2022-10-30 00:00 Depressive disorder [facility] Julianna jerem[facility] [place] 2022-10-30 00:00 Hypertensive disorder [facility] P [facility] [place] 2022-10-30 00:00 Chronic sinusitis [facility] [place] 2022-10-30 00:00 Unspecified essential hypertension [facility] [place] 2022-10-30 00:00 Obesity [facility] [place] 2022-10-30 00:00 Unspecified sinusitis (chronic) [facility] [place] 2022-10-30 00:00 Asthma, unspecified with (acute) [facility] Primary exacerbation [facility] [place] 2022-10-30 00:00 Esophageal reflux [facility] [place] 2022-10-30 00:00 Obesity, unspecified [facility] Pr [facility] [place] 2022-10-30 00:00 Pure hyperglyceridemia [facility] [place] 2022-10-30 00:00 Major depressive disorder, single [facility] Primary episode, unspecified [facility] [place] 2022-10-30 00:00 Essential (primary) hypertension [facility] [place] 2022-10-30 00:00 Chronic sinusitis, unspecified [facility] [place] 2022-10-30 00:00 Unspecified asthma with (acute) [facility] Primary exacerbation [facility] [place] 2022-10-30 00:00 Gastro-esophageal reflux disease [facility] Primary without esophagitis [facility] [place] 2022-11-01 00:00 Gastroesophageal reflux disease [facility] [place] 2022-11-01 00:00 Hypertriglyceridemia [facility] Pr im[facility] [place] 2022-11-01 00:00 Depressive disorder, not elsewhere [facility] Primary classified [facility] & [facility] [place] 2022-11-01 00:00 Depressive disorder [facility]na jerem[facility] [place] 2022-11-01 00:00 Hypertensive disorder [facility] P [facility] [place] 2022-11-01 00:00 Unspecified essential hypertension [facility] [place] 2022-11-01 00:00 Obesity [facility] [place] 2022-11-01 00:00 Esophageal reflux [facility] [place] 2022-11-01 00:00 Obesity, unspecified [facility] Pr [facility] [place] 2022-11-01 00:00 Pure hyperglyceridemia [facility] [place] 2022-11-01 00:00 Major depressive disorder, single [facility] Primary episode, unspecified [facility] [place] 2022-11-01 00:00 Essential (primary) hypertension [facility] [place] 2022-11-01 00:00 Gastro-esophageal reflux disease [facility] Primary without esophagitis [facility] [place] 2023-01-10 00:00 Gastroesophageal reflux disease [facility] [place] 2023-01-10 00:00 Hypertriglyceridemia [facility] Pr [facility] [place] 2023-01-10 00:00 Depressive disorder, not elsewhere [facility] classified [facility] [place] 2023-01-10 00:00 Depressive disorder [facility] Juilanna jeremy [facility] [place] 2023-01-10 00:00 Hypertensive disorder [facility] P [facility] [place] 2023-01-10 00:00 Unspecified essential hypertension [facility] [place] 2023-01-10 00:00 Obesity [facility] [place] 2023-01-10 00:00 Esophageal reflux [facility] Prim [facility] [place] 2023-01-10 00:00 Obesity, unspecified [facility] [place] 2023-01-10 00:00 Pure hyperglyceridemia [facility] [place] 2023-01-10 00:00 Major depressive disorder, single [facility] Primary episode, unspecified [facility] [place] 2023-01-10 00:00 Essential (primary) hypertension [facility] [place] 2023-01-10 00:00 Gastro-esophageal reflux disease [facility] Primary without esophagitis [facility] [place] 2023-01-11 00:00 Gastroesophageal reflux disease [facility] [place] 2023-01-11 00:00 Hypertriglyceridemia [facility] Pr [facility] [place] 2023-01-11 00:00 Depressive disorder, not elsewhere [facility] classified [facility] [place] 2023-01-11 00:00 Depressive disorder [facility] Julianna jeremy [facility] [place] 2023-01-11 00:00 Hypertensive disorder [facility] P [facility] [place] 2023-01-11 00:00 Unspecified essential hypertension [facility] [place] 2023-01-11 00:00 Obesity [facility] Prim [facility] [place] 2023-01-11 00:00 Esophageal reflux [facility] Prim [facility] [place] 2023-01-11 00:00 Obesity, unspecified [facility] Pr im[facility] [place] 2023-01-11 00:00 Pure hyperglyceridemia [facility] [place] 2023-01-11 00:00 Major depressive disorder, single [facility] Primary episode, unspecified [facility] [place] 2023-01-11 00:00 Essential (primary) hypertension [facility] [place] 2023-01-11 00:00 Gastro-esophageal reflux disease [facility] Primary without esophagitis Care & Ancillary Ser [facility] [place] Procedures date description facility 2022-10-30 00:00 Visit Code Hold [facility] [place] 2023-01-10 00:00 Visit Code Hold [facility] [place] Results/Labs No information. Social History date description facility 2022-10-30 00:00 Former smoker [facility] [place] Vital Signs date measurement value units 2022-10-30 00:00 BMI 44.93 kg/m2 2022-10-30 00:00 BP_diastolic 68 mmHg 2022-10-30 00:00 BP_systolic 158 mmHg 2022-10-30 00:00 heart_rate 59 /min 2022-10-30 00:00 height_metric 165.1 cm 2022-10-30 00:00 height_standard 65 in 2022-10-30 00:00 respiration_rate 17 /min 2022-10-30 00:00 temperature_metric 36.83 C 2022-10-30 00:00 temperature_standard 98.3 F 2022-10-30 00:00 weight_metric 122.02 kg 2022-10-30 00:00 weight_standard 269 lb 2023-01-10 00:00 BMI 44.93 kg/m2 2023-01-10 00:00 BP_diastolic 77 mmHg 2023-01-10 00:00 BP_systolic 181 mmHg 2023-01-10 00:00 heart_rate 60 /min 2023-01-10 00:00 height_metric 165.1 cm 2023-01-10 00:00 height_standard 65 in 2023-01-10 00:00 respiration_rate 17 /min 2023-01-10 00:00 temperature_metric 36.44 C 2023-01-10 00:00 temperature_standard 97.6 F 2023-01-10 00:00 weight_metric 122.02 kg 2023-01-10 00:00 weight_standard 269 lb
[2023-01-23 20:50] LABS: ALBUMIN 4.3 g/dL (3.2-5.5); ALBUMIN/GLOBULIN RATIO 1.1 (1.0-2.2); BILIRUBIN,TOTAL 0.3 mg/dL (0.2-1.0); CALCIUM 9.1 mg/dL (8.5-10.3); CREATININE 0.7 mg/dL (0.4-1.0); POTASSIUM 3.5 mmol/L (3.5-5.0); TOTAL PROTEIN 8.1 g/dL (6.7-8.2)
[2023-01-23 20:52] LABS: VBG HCO3 20.6 mmol/L (23-28); VBG OXYGEN SATURATION 75.6 % (60-80); VBG PCO2 40.3 mmHg (41-51); VBG PH 7.327 (7.31-7.41); VBG TOTAL CO2 21.9 mmol/L (24-29)
[2023-01-23] MEDS ORDERED: IPRATROPIUM/ALBUTEROL 3 ML NEB INH STA (20:52)
--- NOTE | 2023-01-23 20:52 | ED Physician Documentation ---
History of Present Illness - Stated complaint Stated Complaint: KAYLAH TOBIAS - Chief complaint Chief Complaint: Resp - Additonal information Additional information: Patient is 52-year-old female presenting to the emergency department with chief complaint of shortness of breath and chest pain. Reports history of asthma. Reports has been having shortness of breath and chest pain ongoing x2-3 weeks. Has used her albuterol inhaler multiple times at home with minimal relief. Reports multiple family members are currently suffering from upper respiratory tract style symptoms. She also reports that she drinks regularly greater than 1 pint vodka daily. Denies fever but does report some nausea vomiting. States that she is urinating frequently as well. Per EMS received 125 mg Solu-Medrol prior to arrival. 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: Other : Frequency, Incontinence, Nocturia HEENT: Chronic sinusitis Psych: Depression, Anxiety, Other Musculoskeletal: Chronic back pain, Fatigue Derm: None - Past Surgical History Past Surgical History: Yes /INSURANCE ACCOUNT MANAGER: Tubal ligation Cardiovascular: Cardiac catheterization HEENT: Rhinoplasty - Present Medications Home Medications: Ambulatory Orders Medication Instructions Recorded Confirmed Losartan [Cozaar] 100 mg PO DAILY 12/24/15 11/24/21 Metformin HCl 1,000 mg PO BID 12/24/15 11/24/21 Disulfiram 500 mg PO DAILY 07/04/17 11/24/21 Fluoxetine HCl 60 mg PO DAILY 07/04/17 11/24/21 traZODone [Desyrel] 1 - 4 tab PO QPM 07/04/17 11/24/21 Atorvastatin [Lipitor] 10 mg PO QPM 11/21/19 11/24/21 Buspirone HCl 30 mg PO BID 11/21/19 11/24/21 Gabapentin 300 mg PO DAILY 11/21/19 11/25/21 Gabapentin 600 mg PO QPM 11/21/19 11/24/21 Ibuprofen [Motrin] 800 mg PO DAILY PRN 11/21/19 11/24/21 amLODIPine [Norvasc] 10 mg PO DAILY 11/21/19 11/24/21 HYDROcod/ACETAM 5/325 [[place] 5/325] 1 ea PO Q6H PRN #12 tablet 09/06/20 11/24/21 Meclizine [Antivert] 25 mg PO Q6H PRN #20 tablet 09/06/20 11/24/21 Ondansetron Odt [Zofran] 4 mg TL Q6H PRN #10 tablet 09/06/20 11/24/21 Dapagliflozin Propanediol [Farxiga] 10 mg PO DAILY 11/25/21 11/25/21 Liraglutide [Victoza 2-Tobias] 0.6 mg SQ DAILY 11/25/21 11/25/21 - Allergies Allergies/Adverse Reactions: Allergies Allergy/AdvReac Type Severity Reaction Status Date / Time No Known Drug Allergies Allergy Verified 01/23/23 20:28 - Social History Does the pt smoke?: No Smoking Status: Never smoker Does the pt drink ETOH?: Yes Does the pt have substance abuse?: Yes - Immunizations Immunizations are current?: Yes - POLST Patient has POLST: No POLST Status: Full Code PD ED PE NORMAL - Vitals Vital signs reviewed: Yes - General General: Alert and oriented X 3, Other (Patient with nonproductive cough.) - HEENT HEENT: Atraumatic, PERRL, EOMI, Ears normal, Moist mucous membranes, Pharynx benign - Neck Neck: Supple, no meningeal sign, No bony TTP, No adenopathy, Thyroid normal, No JVD, No bruit - Cardiac Cardiac: RRR, No gallop - Respiratory Respiratory: Other (Diminished breath sounds bilaterally.) - Abdomen Abdomen: Normal bowel sounds, Non tender - Female Female : Deferred - Rectal Rectal: Deferred - Back Back: No CVA TTP - Derm Derm: Normal color - Extremities Extremities: No deformity Results - Vitals Vitals: Vital Signs - 24 hr 01/23/23 01/23/23 01/23/23 20:19 21:13 21:31 Temperature 36.6 C Heart Rate 76 66 Respiratory 18 17 Rate Blood Pressure 161/76 H 123/79 O2 Saturation 96 93 88 L If not protocol 2 : Oxygen Flow, liters/minute 01/23/23 01/23/23 01/23/23 21:39 21:59 23:12 Temperature Heart Rate 69 67 Respiratory 21 21 Rate Blood Pressure 149/80 H 149/80 H O2 Saturation 92 93 89 L If not protocol 2 3 : Oxygen Flow, liters/minute 01/24/23 01/24/23 00:45 01:22 Temperature Heart Rate 85 78 Respiratory 16 19 Rate Blood Pressure 112/81 H 138/67 H O2 Saturation 94 93 If not protocol : Oxygen Flow, liters/minute Oxygen O2 Source Room air Oxygen Flow Rate 2 - EKG (time done) 2027 EKG releavant findings:: EKG personally interpreted by author of this note. Relevant findings are: Sinus rhythm with rate 70 bpm. Normal axis. Normal MT, QRS, QTc intervals. No ST segment elevations or T wave inversions. - Labs Labs: Laboratory Tests 01/23/23 01/23/23 01/23/23 20:26 20:26 20:26 WBC 9.3 RBC 4.44 Hgb 14.1 Hct 44.5 MCV 100.2 H MCH 31.8 H MCHC 31.7 L RDW 12.8 Plt Count 244 MPV 9.9 Neut # (Auto) 5.0 Lymph # (Auto) 3.4 [place] # (Auto) 0.6 Eos # (Auto) 0.2 Baso # (Auto) 0.0 Absolute Nucleated RBC 0.00 Nucleated RBC % 0.0 D-Dimer VBG pH VBG pCO2 VBG pO2 VBG HCO3 VBG Total CO2 VBG O2 Saturation VBG Base Excess Sodium 142 Potassium 3.5 Chloride 104 Carbon Dioxide 24 Anion Gap 14.0 H BUN 9 Creatinine 0.7 Estimated GFR (MDRD) 88 L Glucose 229 H Calcium 9.1 Total Bilirubin 0.3 AST 20 ALT 19 Alkaline Phosphatase 55 Troponin I High Sens Total Protein 8.1 Albumin 4.3 Globulin 3.8 Albumin/Globulin Ratio 1.1 Lipase 36 Nasal Adenovirus (PCR) NOT DETECTED Nasal B. parapertussis DNA (PCR) NOT DETECTED Nasal Coronavir 229E PCR NOT DETECTED Nasal Coronavir HKU1 PCR NOT DETECTED Nasal Coronavir NL63 PCR NOT DETECTED Nasal Coronavir OC43 PCR NOT DETECTED Nasal Enterovir/Rhinovir PCR NOT DETECTED Nasal Influenza B PCR NOT DETECTED Nasal Influenza A PCR NOT DETECTED Nasal Parainfluen 1 PCR NOT DETECTED Nasal Parainfluen 2 PCR NOT DETECTED Nasal Parainfluen 3 PCR DETECTED A Nasal Parainfluen 4 PCR NOT DETECTED Nasal RSV (PCR) NOT DETECTED Nasal B.pertussis DNA PCR NOT DETECTED Nasal C.pneumoniae (PCR) NOT DETECTED Ayan Human Metapneumo PCR NOT DETECTED Nasal M.pneumoniae (PCR) NOT DETECTED Nasal SARS-CoV-2 (PCR) NOT DETECTED Ethyl Alcohol 01/23/23 01/23/23 01/23/23 20:26 20:26 20:44 WBC RBC Hgb Hct MCV MCH MCHC RDW Plt Count MPV Neut # (Auto) Lymph # (Auto) [place] # (Auto) Eos # (Auto) Baso # (Auto) Absolute Nucleated RBC Nucleated RBC % D-Dimer VBG pH 7.327 VBG pCO2 40.3 L VBG pO2 45.0 VBG HCO3 20.6 L VBG Total CO2 21.9 L VBG O2 Saturation 75.6 VBG Base Excess -5.0 L Sodium Potassium Chloride Carbon Dioxide Anion Gap BUN Creatinine Estimated GFR (MDRD) Glucose Calcium Total Bilirubin AST ALT Alkaline Phosphatase Troponin I High Sens 4.4 Total Protein Albumin Globulin Albumin/Globulin Ratio Lipase Nasal Adenovirus (PCR) Nasal B. parapertussis DNA (PCR) Nasal Coronavir 229E PCR Nasal Coronavir HKU1 PCR Nasal Coronavir NL63 PCR Nasal Coronavir OC43 PCR Nasal Enterovir/Rhinovir PCR Nasal Influenza B PCR Nasal Influenza A PCR Nasal Parainfluen 1 PCR Nasal Parainfluen 2 PCR Nasal Parainfluen 3 PCR Nasal Parainfluen 4 PCR Nasal RSV (PCR) Nasal B.pertussis DNA PCR Nasal C.pneumoniae (PCR) Ayan Human Metapneumo PCR Nasal M.pneumoniae (PCR) Nasal SARS-CoV-2 (PCR) Ethyl Alcohol 268.6 01/23/23 20:56 WBC RBC Hgb Hct MCV MCH MCHC RDW Plt Count MPV Neut # (Auto) Lymph # (Auto) [place] # (Auto) Eos # (Auto) Baso # (Auto) Absolute Nucleated RBC Nucleated RBC % D-Dimer < 200.0 L VBG pH VBG pCO2 VBG pO2 VBG HCO3 VBG Total CO2 VBG O2 Saturation VBG Base Excess Sodium Potassium Chloride Carbon Dioxide Anion Gap BUN Creatinine Estimated GFR (MDRD) Glucose Calcium Total Bilirubin AST ALT Alkaline Phosphatase Troponin I High Sens Total Protein Albumin Globulin Albumin/Globulin Ratio Lipase Nasal Adenovirus (PCR) Nasal B. parapertussis DNA (PCR) Nasal Coronavir 229E PCR Nasal Coronavir HKU1 PCR Nasal Coronavir NL63 PCR Nasal Coronavir OC43 PCR Nasal Enterovir/Rhinovir PCR Nasal Influenza B PCR Nasal Influenza A PCR Nasal Parainfluen 1 PCR Nasal Parainfluen 2 PCR Nasal Parainfluen 3 PCR Nasal Parainfluen 4 PCR Nasal RSV (PCR) Nasal B.pertussis DNA PCR Nasal C.pneumoniae (PCR) Ayan Human Metapneumo PCR Nasal M.pneumoniae (PCR) Nasal SARS-CoV-2 (PCR) Ethyl Alcohol PD Medical Decision Making - ED course Complexity details: reviewed results, re-evaluated patient, d/w patient, d/w natural remedy consultant ED course: Patient 53-year-old female presenting to the emergency department with cough, shortness of breath times several weeks. Known history of asthma/COPD. Patient also endorses for regular heavy alcohol consumption. Has been having progressively worsening shortness of breath with cough and con gestion at home. Denied fever. Was tachypneic with diffuse wheezing on arrival to the emergency department. Had received a breathing treatment as well as 125 mg of methylprednisolone per EMS prior to arrival. I did order for additional breathing treatments. Patient had persistent hypoxia in the emergency department with oxygen saturations in the mid to high 80s. She was placed on supplemental oxygen. No leukocytosis, bandemia and a reassuring blood gas. Chemistries patient additionally had a negative troponin and negative D-dimer in the emergency department and an EKG that was nonischemic. Patient did notably have an elevation in ethanol greater than 200. This was consistent with her stated history of drinking a pint of vodka prior to coming to the emergency department. She denied history of seizure, delirium or hallucinations associated with alcohol withdrawal in the past. Chest x-ray demonstrated findings consistent with atypical pneumonia. Respiratory viral panel positive for parainfluenza virus. Given findings started on azithromycin here in the emergency department. Patient demonstrated persistent oxygen demand with desaturations into the 80s at rest off O2. Is currently dependent on 2 to 3 L nasal cannula. Care was discussed with the telehospitalist service who graciously agreed to hospitalize the patient for hypoxic respiratory failure in setting of parainfluenza infection and findings of atypical pneumonia. Comprehensive labs obtained demonstrated
[2023-01-23 21:34] LABS: B. PARAPERTUSSIS- RESP PCR PAN NOT DETECTED; B. PERTUSSIS- RESP PCR PANEL NOT DETECTED; C. PNEUMONIAE- RESP PCR PANEL NOT DETECTED; CORONAVIRUS 229E-RESP PCR NOT DETECTED; CORONAVIRUS HKU1-RESP PCR NOT DETECTED; CORONAVIRUS NL63-RESP PCR NOT DETECTED; CORONAVIRUS OC43-RESP PCR NOT DETECTED; HUMAN METAPNEUMOVIRUS NOT DETECTED; INFLUENZA A- RESP PCR PANEL NOT DETECTED; INFLUENZA B - RESP PCR PANEL NOT DETECTED; M. PNEUMONIAE- RESP PCR PANEL NOT DETECTED; PARAINFLUENZA VIRUS 1 NOT DETECTED; PARAINFLUENZA VIRUS 2 NOT DETECTED; PARAINFLUENZA VIRUS 3 DETECTED; PARAINFLUENZA VIRUS 4 NOT DETECTED; RHINOVIRUS/ENTEROVIRUS NOT DETECTED; RSV- RESP PCR PANEL NOT DETECTED; SARS-CoV-2 -RESP PCR PANEL NOT DETECTED
--- NOTE | 2023-01-24 01:02 | XRAY Report ---
PROCEDURE: Chest 2 View X-Ray INDICATIONS: cough TECHNIQUE: 2 views of the chest were acquired. COMPARISON: Chest x-ray 09/09/2022. FINDINGS: Surgical changes and devices: None. Lungs and pleura: There are bilateral scattered indistinct opacities. No pleural effusions or pneumo thorax. Mediastinum: Mediastinal contours appear normal. Heart size is normal. Bones and chest wall: No suspicious bony lesions. Overlying soft tissues appear unremarkable. IMPRESSION: 1. Bilateral scattered indistinct opacities are nonspecific and may reflect atypical pneumonia. Reviewed by: Ranjan Silverman MD on 01/24/2023 1:01 AM PDT Approved by: Ranjan Silverman MD on 01/24/2023 1:01 AM PDT Station ID: [id number]
[2023-01-24] MEDS ORDERED: AZITHROMYCIN 250 MG TABLET PO STA (01:16)
[2023-01-24] MEDS ORDERED: cefTRIAXone 2 GM in SODIUM CHLORIDE 0.9% MINIBAG 100 ML IV STA (01:39)
[2023-01-24] MEDS ORDERED: PROCHLORPERAZINE 10 MG/2 ML VIAL IVP PRN (01:46)
[2023-01-24] MEDS ORDERED: ONDANSETRON 4 MG/2 ML VIAL IVP PRN (01:46)
[2023-01-24] MEDS ORDERED: polyethylene glycoL 3350 17 GM PACKET PO PRN (01:46)
[2023-01-24] MEDS ORDERED: ACETAMINOPHEN 325 MG TABLET PO PRN (01:46)
[2023-01-24] MEDS ORDERED: cefTRIAXone 2 GM VIAL ONE (01:46)
[2023-01-24] MEDS ORDERED: MECLIZINE 12.5 MG TABLET PO PRN (01:50)
[2023-01-24] MEDS ORDERED: BENZONATATE 100 MG CAPSULE PO PRN (01:58)
--- NOTE | 2023-01-24 02:06 | HISTORY & PHYSICAL EXAMINATION ---
Chief Complaint - Chief Complaint Chief Complaint: cough and sob History of Present Illness - Admitted From Admitted From:: ED - History Obtained From Records Reviewed: EMR History obtained from: Patient Exam Limitations: Tele medicine - History of Present Illness HPI Comment/Other: 53F c prior hx tobacco abuse, active alcohol abuse, asthma, DM2 who presents to the ED complaining of coughing and SOB. Patient reports x2 wks of coughing sxs that has not resolved with conservative management and leading to SOB. She reports frequent cough such that she is having difficulty sleeping. She has tried over the counter cough syrup and cold medications without improvement. She is out of her inhalers. She feels chest congestion and wheezing. She decided to come into the ED Here in the ED, she is noted for O2 saturation 89% on room air and imaging showing bilateral infiltrates. In addition, patient was noted for elevated alcohol level with last vodka yesterday night. 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 OR PERIODICAL EDITOR: reports: Other : reports: Frequency, Incontinence, Nocturia HEENT: reports: Chronic sinusitis Psych: reports: Depression, Anxiety, Other Musculoskeletal: reports: Chronic back pain, Fatigue Derm: reports: None MRSA Hx?: No - Past Surgical History /NEWSPAPER OR PERIODICAL EDITOR: reports: Tubal ligation Cardiovascular: reports: Cardiac catheterization HEENT: reports: Rhinoplasty - Family & Social History Family History: Mother: Alive and Well, Father: Alive and Well, Renal Disease/Failure Family History Comment/Other: Father: alive, has MS, HIV, and kidney problems, patient does not see him. 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 She admits to tobacco dependence from age [age], daily alcohol use, denies illicit drug use. She wishes to be a full code. - Substance History Use: Uses substance without health or social issues: Alcohol - POLST Patient has POLST: No POLST Status: Full Code Meds/Allgy - Home Medications Home Medications: Ambulatory Orders Medication Instructions Recorded Confirmed Losartan [Cozaar] 100 mg PO DAILY 12/24/15 11/24/21 Metformin HCl 1,000 mg PO BID 12/24/15 11/24/21 Disulfiram 500 mg PO DAILY 07/04/17 11/24/21 Fluoxetine HCl 60 mg PO DAILY 07/04/17 11/24/21 traZODone [Desyrel] 1 - 4 tab PO QPM 07/04/17 11/24/21 Atorvastatin [Lipitor] 10 mg PO QPM 11/21/19 11/24/21 Buspirone HCl 30 mg PO BID 11/21/19 11/24/21 Gabapentin 300 mg PO DAILY 11/21/19 11/25/21 Gabapentin 600 mg PO QPM 11/21/19 11/24/21 Ibuprofen [Motrin] 800 mg PO DAILY PRN 11/21/19 11/24/21 amLODIPine [Norvasc] 10 mg PO DAILY 11/21/19 11/24/21 HYDROcod/ACETAM 5/325 [[place] 5/325] 1 ea PO Q6H PRN #12 tablet 09/06/20 11/24/21 Meclizine [Antivert] 25 mg PO Q6H PRN #20 tablet 09/06/20 11/24/21 Ondansetron Odt [Zofran] 4 mg TL Q6H PRN #10 tablet 09/06/20 11/24/21 Dapagliflozin Propanediol [Farxiga] 10 mg PO DAILY 11/25/21 11/25/21 Liraglutide [Victoza 2-Tobias] 0.6 mg SQ DAILY 11/25/21 11/25/21 - Allergies Allergies/Adverse Reactions: Allergies Allergy/AdvReac Type Severity Reaction Status Date / Time No Known Drug Allergies Allergy Verified 01/23/23 20:28 Review of Systems - Constitutional Constitutional: denies: Fever - Ears, Nose & Throat Ears, Nose & Throat: denies: Ear pain, Sore throat - Cardiovascular Cariovascular: denies: Chest pain - Respiratory Respiratory: reports: Cough, Wheezing, SOB at rest - Gastrointestinal Gastrointestinal: denies: Abdominal pain, Diarrhea, Nausea, Vomiting - Genitourinary Genitourinary: denies: Dysuria Exam - Vital Signs Reviewed Vital Signs: Yes Vital Signs: Vital Signs x48h Temp Pulse Resp BP Pulse Ox O2 Flow Rate 01/24/23 01:22 78 19 138/67 H 93 01/24/23 00:45 85 16 112/81 H 94 01/23/23 23:12 89 L 01/23/23 21:59 67 21 149/80 H 93 3 01/23/23 21:39 69 21 149/80 H 92 2 01/23/23 21:31 88 L 01/23/23 21:13 66 17 123/79 93 2 01/23/23 20:19 36.6 C 76 18 161/76 H 96 - Physical Exam General Appearance: positive: Alert, Mild distress Eyes Bilateral: positive: Normal inspection ENT: positive: ENT inspection nml Neck: positive: Nml inspection Respiratory: positive: Wheezes Cardiovascular: positive: Regular rate & rhythm, No murmur Abdomen: positive: Non-tender, Nml bowel sounds, No distention Skin: positive: Color nml Neurologic/Psychiatric: positive: Oriented x3 Conclusion/Plan - Problem List (1) Acute hypoxemic respiratory failure Conclusion/Plan: -2/2 pneumonia and asthma exacerbation. -treat infection c abx, breathing treatment, antitussive. O2 support -followup cultures and labs -tele monitoring (2) Atypical pneumonia Conclusion/Plan: -hx, sxs, and imaging support dx of PNA. less likely heart failure or ACS. -empiric abx. breathing treatment. antitussives. followup cultures -O2 support -followup am labs CBC, BMP, troponin, BNP -telemonitoring (3) Asthma Conclusion/Plan: in exacerbation 2/2 PNA. breathing treatment and abx. continue O2 support. (4) Alcoholic intoxication Conclusion/Plan: counseled to stop alcohol abuse. [facility] monitor and start protocol if needed oncology social work consult Qualifiers: Complication of substance-induced condition: uncomplicated Qualified Code(s): F10.920 - Alcohol use, unspecified with intoxication, uncomplicated (5) Diabetes mellitus type 2 in obese Conclusion/Plan: -managed. followup [id number] in am -hold home oral meds -manage with SSI and monitor c accuchecks (6) Hypertension Conclusion/Plan: managed. no renal failure noted. continue home antihypertensive losartan. monitor blood pressure c repeat vital signs Qualifiers: Hypertension type: unspecified Qualified Code(s): I10 - Essential (primary) hypertension (7) Depression Conclusion/Plan: managed. continue home antidepressant Flouxetine and buspirone Qualifiers: Depression Type: unspecified Qualified Code(s): F32.9 - Major depressive disorder, single episode, unspecified (8) Chronic low back pain Conclusion/Plan: chronic low back pain managed with opioids. proceed with restart home regimen [place]. - Lab Results Lab results reviewed: Yes Fish Bones: 01/23/23 20:26 01/23/23 20:26 - Diagnostic Imaging Results Diagnostic Imaging Results: positive: Final report reviewed - Other Other Results/Comments: The patient consented to receive this telemedicine service, which I performed via live two-way audiovisual equipment. The patient is at [facility] and I am physically in [facility]. A nurse assisted me in the visit. Core Measures - Anticipated LOS I expect patient to be DC'd or transferred within 96 hours.: No - DVT/VTE - Prophylaxis VTE/DVT Device ordered at admit?: Yes Telemedicine Consult Details - Provider Location & Consult Time Telemedicine consultation conducted via videoconferencing?: Yes List names and roles of persons who participated in consult:: patient and RN Telemedicine provider location:: [place] Time Telemedicine consult began:: 01:35 Time Telemedicine consult completed:: 02:40
[2023-01-24] MEDS: HYDROcod/ACETAM 5/325 MG TABLET PO PRN ×2 (03:35→09:26)
[2023-01-24 05:44] LABS: HCT - HEMATOCRIT 40.5 % (37.0-47.0); MEAN CORPUSCULAR HEMOGLOBIN 32.3 pg (27.0-31.0); MEAN CORPUSCULAR HGB CONC 32.1 g/dL (32.0-36.0); MEAN CORPUSCULAR VOLUME 100.7 fL (81.0-99.0); MEAN PLATELET VOLUME 10.4 fL (7.9-10.8); RED BLOOD COUNT 4.02 10^6/uL (4.20-5.40); WHITE BLOOD COUNT 5.3 x10^3/uL (4.8-10.8)
[2023-01-24 06:01] LABS: CALCIUM 8.7 mg/dL (8.5-10.3); CREATININE 0.7 mg/dL (0.4-1.0); MAGNESIUM 1.9 mg/dL (1.7-2.8); PHOSPHORUS 3.1 mg/dL (2.5-4.6); POTASSIUM 4.1 mmol/L (3.5-5.0)
[2023-01-24] MEDS: IPRATROPIUM/ALBUTEROL 3 ML NEB INH SCH ×4 (07:48→18:12)
[2023-01-24] MEDS: INSULIN LISPRO 300 UNIT/3 ML PEN SUBQ SCH ×4 (08:18→21:39)
[2023-01-24] MEDS: SODIUM CHLORIDE FLUSH 0.9% 10 ML SYRINGE IVP SCH ×3 (08:34→21:51)
[2023-01-24] MEDS: LACTOBACILLUS RHAMNOSUS GG CAPSULE PO SCH (08:34)
[2023-01-24] MEDS: LOSARTAN 50 MG TABLET PO SCH (08:35)
[2023-01-24] MEDS: amLODIPine 5 MG TABLET PO SCH (08:35)
[2023-01-24] MEDS: busPIRone 5 MG TABLET PO SCH ×2 (08:36→21:39)
[2023-01-24] MEDS: FLUoxetine 10 MG CAPSULE PO SCH (08:36)
[2023-01-24] MEDS ORDERED: GABAPENTIN 300 MG CAPSULE PO SCH ×2 (09:00→21:00)
[2023-01-24] MEDS ORDERED: cefTRIAXone 2 GM in SODIUM CHLORIDE 0.9% MINIBAG 100 ML IV SCH (09:00)
[2023-01-24] MEDS: HEPARIN 5,000 UNIT/ML VIAL SUBQ SCH ×2 (09:23→21:46)
[2023-01-24] MEDS: guaiFENesin/DEXTROMETHORPHAN 10 ML UDC PO PRN (11:20)
[2023-01-24 11:47] LABS: ESTIMATED AVERAGE GLUCOSE 140 mg/dL (70-100); HEMOGLOBIN A1c% 6.5 % (4.27-6.07)
--- NOTE | 2023-01-24 13:32 | PHARMACY PROGRESS NOTE ---
- Best Possible Medication History Admit Date and Time: 01/24/23 0159 Processed by: Pharmacy Medication History completed: Yes Patient Interview: Completed Secondary Source(s): Pharmacy records, Insurance records As the person ultimately responsible for medication therapy, providers are able to order a medication from an existing home medication list in [facility] via the "Reconcile Routine" prior to Confirmation of that medication by underwriting support manager. Such practice is discouraged except when the physician, in their clinical judgment, deems that a medical need exists for a medication without regard to previous use.
[2023-01-24] MEDS ORDERED: LORazepam 1 MG TABLET PO PRN (14:47)
[2023-01-24] MEDS ORDERED: chlordiazePOXIDE 5 MG CAPSULE PO SCH (15:00)
[2023-01-24] MEDS ORDERED: chlordiazePOXIDE 5 MG CAPSULE PO STA (16:46)
[2023-01-24] MEDS: GABAPENTIN 300 MG CAPSULE PO SCH ×2 (17:15→21:39)
--- NOTE | 2023-01-24 17:42 | PROVIDER PROGRESS NOTE ---
Subjective - Prog Note Date Prog Note Date: 01/24/23 Prog Note Time: 17:40 - Subjective Pt reports feeling: No change Subjective: Patient reports she still feels sweaty and shaky, despite the Librium and Lorazepam. She also complains of chronic low back pain and would like her home medications restarted (gabapentin and [place]). She is still coughing intermittently. Objective - Vital Signs/Intake & Output Reviewed Vital Signs: Yes Vital Signs: Vital Signs x48h Temp Pulse Pulse Resp BP Pulse Ox O2 Flow Rate 01/24/23 16:42 36.4 C L 64 16 146/79 H 95 1 01/24/23 15:00 93 1 01/24/23 14:58 91 L 01/24/23 14:57 60 20 01/24/23 11:58 36.4 C L 58 L 18 144/77 H 94 1 01/24/23 11:34 64 20 01/24/23 11:29 144/77 H 01/24/23 11:22 96 1 Intake & Output: Intake & Output 01/21/23 01/22/23 01/23/23 01/24/23 23:59 23:59 23:59 23:59 Intake Total 2667 Balance 2667 - Objective General Appearance: positive: No acute distress, Alert Eyes Bilateral: positive: Normal inspection Neck: positive: Nml inspection, Thyroid nml, No JVD, Trachea midline. negative: Stiff neck Respiratory: positive: Chest non-tender, No respiratory distress, Wheezes, Rhonchi Cardiovascular: positive: Regular rate & rhythm, No murmur, No gallop Skin: positive: Color nml, Warm, Diaphoresis Neurologic/Psychiatric: positive: Oriented x3, CN's nml (2-12) Comments/Other: Patient has class III obesity. She sitting up in a chair surrounded by family. She is diaphoretic, seems tired, and coughed occasionally during the exam. - Lab Results Fish Bones: 01/24/23 04:34 01/24/23 04:34 Other Labs: Lab Results x24hrs 01/24/23 01/24/23 01/24/23 Range/Units 16:39 11:54 07:41 WBC (4.8-10.8) x10^3/uL RBC (4.20-5.40) 10^6/uL Hgb (12.0-16.0) g/dL Hct (37.0-47.0) % MCV (81.0-99.0) fL MCH (27.0-31.0) pg MCHC (32.0-36.0) g/dL RDW (12.0-15.0) % Plt Count (130-450) 10^3/uL MPV (7.9-10.8) fL Neut # (Auto) (1.5-6.6) 10^3/uL Lymph # (Auto) (1.5-3.5) 10^3/uL Gaines # (Auto) (0.0-1.0) 10^3/uL Eos # (Auto) (0.0-0.7) 10^3/uL Baso # (Auto) (0.0-0.1) 10^3/uL Absolute Nucleated RBC x10^3/uL Nucleated RBC % /100WBC D-Dimer (200.0-255.0) ng/mL VBG pH (7.31-7.41) VBG pCO2 (41-51) mmHg VBG pO2 (25-47) mmHg VBG HCO3 (23-28) mmol/L VBG Total CO2 (24-29) mmol/L VBG O2 Saturation (60-80) % VBG Base Excess (-2 - +2) mmol/L Sodium (135-145) mmol/L Potassium (3.5-5.0) mmol/L Chloride (101-111) mmol/L Carbon Dioxide (21-32) mmol/L Anion Gap (6-13) BUN (6-20) mg/dL Creatinine (0.4-1.0) mg/dL Estimated GFR (MDRD) (>89) Glucose (70-100) mg/dL POC Whole Bld Glucose 191 H 214 H 204 H (70 - 100) mg/dL Estimat Average Glucose (70-100) mg/dL Hemoglobin A1c % (4.27-6.07) % Calcium (8.5-10.3) mg/dL Phosphorus (2.5-4.6) mg/dL Magnesium (1.7-2.8) mg/dL Total Bilirubin (0.2-1.0) mg/dL AST (10-42) IU/L ALT (10-60) IU/L Alkaline Phosphatase (42-121) IU/L Troponin I High Sens (2.3-14.8) ng/L B-Natriuretic Peptide (5-100) pg/mL Total Protein (6.7-8.2) g/dL Albumin (3.2-5.5) g/dL Globulin (2.1-4.2) g/dL Albumin/Globulin Ratio (1.0-2.2) Lipase (22-51) U/L Procalcitonin (<0.5) ng/mL Nasal Adenovirus (PCR) Nasal B. parapertussis DNA (PCR) Nasal Coronavir 229E PCR Nasal Coronavir HKU1 PCR Nasal Coronavir NL63 PCR Nasal Coronavir OC43 PCR Nasal Enterovir/Rhinovir PCR Nasal Influenza B PCR Nasal Influenza A PCR Nasal Parainfluen 1 PCR Nasal Parainfluen 2 PCR Nasal Parainfluen 3 PCR Nasal Parainfluen 4 PCR Nasal RSV (PCR) Nasal B.pertussis DNA PCR Nasal C.pneumoniae (PCR) Ayan Human Metapneumo PCR Nasal M.pneumoniae (PCR) Nasal SARS-CoV-2 (PCR) Ethyl Alcohol mg/dL 01/24/23 01/24/23 01/24/23 Range/Units 04:34 04:34 04:34 WBC (4.8-10.8) x10^3/uL RBC (4.20-5.40) 10^6/uL Hgb (12.0-16.0) g/dL Hct (37.0-47.0) % MCV (81.0-99.0) fL MCH (27.0-31.0) pg MCHC (32.0-36.0) g/dL RDW (12.0-15.0) % Plt Count (130-450) 10^3/uL MPV (7.9-10.8) fL Neut # (Auto) (1.5-6.6) 10^3/uL Lymph # (Auto) (1.5-3.5) 10^3/uL Gaines # (Auto) (0.0-1.0) 10^3/uL Eos # (Auto) (0.0-0.7) 10^3/uL Baso # (Auto) (0.0-0.1) 10^3/uL Absolute Nucleated RBC x10^3/uL Nucleated RBC % /100WBC D-Dimer (200.0-255.0) ng/mL VBG pH (7.31-7.41) VBG pCO2 (41-51) mmHg VBG pO2 (25-47) mmHg VBG HCO3 (23-28) mmol/L VBG Total CO2 (24-29) mmol/L VBG O2 Saturation (60-80) % VBG Base Excess (-2 - +2) mmol/L Sodium (135-145) mmol/L Potassium (3.5-5.0) mmol/L Chloride (101-111) mmol/L Carbon Dioxide (21-32) mmol/L Anion Gap (6-13) BUN (6-20) mg/dL Creatinine (0.4-1.0) mg/dL Estimated GFR (MDRD) (>89) Glucose (70-100) mg/dL POC Whole Bld Glucose (70 - 100) mg/dL Estimat Average Glucose 140 H (70-100) mg/dL Hemoglobin A1c % 6.5 H (4.27-6.07) % Calcium (8.5-10.3) mg/dL Phosphorus (2.5-4.6) mg/dL Magnesium (1.7-2.8) mg/dL Total Bilirubin (0.2-1.0) mg/dL AST (10-42) IU/L ALT (10-60) IU/L Alkaline Phosphatase (42-121) IU/L Troponin I High Sens (2.3-14.8) ng/L B-Natriuretic Peptide 21 (5-100) pg/mL Total Protein (6.7-8.2) g/dL Albumin (3.2-5.5) g/dL Globulin (2.1-4.2) g/dL Albumin/Globulin Ratio (1.0-2.2) Lipase (22-51) U/L Procalcitonin < 0.05 (<0.5) ng/mL Nasal Adenovirus (PCR) Nasal B. parapertussis DNA (PCR) Nasal Coronavir 229E PCR Nasal Coronavir HKU1 PCR Nasal Coronavir NL63 PCR Nasal Coronavir OC43 PCR Nasal Enterovir/Rhinovir PCR Nasal Influenza B PCR Nasal Influenza A PCR Nasal Parainfluen 1 PCR Nasal Parainfluen 2 PCR Nasal Parainfluen 3 PCR Nasal Parainfluen 4 PCR Nasal RSV (PCR) Nasal B.pertussis DNA PCR Nasal C.pneumoniae (PCR) Ayan Human Metapneumo PCR Nasal M.pneumoniae (PCR) Nasal SARS-CoV-2 (PCR) Ethyl Alcohol mg/dL 01/24/23 01/24/23 01/24/23 Range/Units 04:34 04:34 04:34 WBC 5.3 (4.8-10.8) x10^3/uL RBC 4.02 L (4.20-5.40) 10^6/uL Hgb 13.0 (12.0-16.0) g/dL Hct 40.5 (37.0-47.0) % MCV 100.7 H (81.0-99.0) fL MCH 32.3 H (27.0-31.0) pg MCHC 32.1 (32.0-36.0) g/dL RDW 13.0 (12.0-15.0) % Plt Count 225 (130-450) 10^3/uL MPV 10.4 (7.9-10.8) fL Neut # (Auto) (1.5-6.6) 10^3/uL Lymph # (Auto) (1.5-3.5) 10^3/uL Gaines # (Auto) (0.0-1.0) 10^3/uL Eos # (Auto) (0.0-0.7) 10^3/uL Baso # (Auto) (0.0-0.1) 10^3/uL Absolute Nucleated RBC x10^3/uL Nucleated RBC % /100WBC D-Dimer (200.0-255.0) ng/mL VBG pH (7.31-7.41) VBG pCO2 (41-51) mmHg VBG pO2 (25-47) mmHg VBG HCO3 (23-28) mmol/L VBG Total CO2 (24-29) mmol/L VBG O2 Saturation (60-80) % VBG Base Excess (-2 - +2) mmol/L Sodium 138 (135-145) mmol/L Potassium 4.1 (3.5-5.0) mmol/L Chloride 107 (101-111) mmol/L Carbon Dioxide 20 L (21-32) mmol/L Anion Gap 11.0 (6-13) BUN 9 (6-20) mg/dL Creatinine 0.7 (0.4-1.0) mg/dL Estimated GFR (MDRD) 88 L (>89) Glucose 274 H (70-100) mg/dL POC Whole Bld Glucose (70 - 100) mg/dL Estimat Average Glucose (70-100) mg/dL Hemoglobin A1c % (4.27-6.07) % Calcium 8.7 (8.5-10.3) mg/dL Phosphorus 3.1 (2.5-4.6) mg/dL Magnesium 1.9 (1.7-2.8) mg/dL Total Bilirubin (0.2-1.0) mg/dL AST (10-42) IU/L ALT (10-60) IU/L Alkaline Phosphatase (42-121) IU/L Troponin I High Sens < 2.3 L (2.3-14.8) ng/L B-Natriuretic Peptide (5-100) pg/mL Total Protein (6.7-8.2) g/dL Albumin (3.2-5.5) g/dL Globulin (2.1-4.2) g/dL Albumin/Globulin Ratio (1.0-2.2) Lipase (22-51) U/L Procalcitonin (<0.5) ng/mL Nasal Adenovirus (PCR) Nasal B. parapertussis DNA (PCR) Nasal Coronavir 229E PCR Nasal Coronavir HKU1 PCR Nasal Coronavir NL63 PCR Nasal Coronavir OC43 PCR Nasal Enterovir/Rhinovir PCR Nasal Influenza B PCR Nasal Influenza A PCR Nasal Parainfluen 1 PCR Nasal Parainfluen 2 PCR Nasal Parainfluen 3 PCR Nasal Parainfluen 4 PCR Nasal RSV (PCR) Nasal B.pertussis DNA PCR Nasal C.pneumoniae (PCR) Ayan Human Metapneumo PCR Nasal M.pneumoniae (PCR) Nasal SARS-CoV-2 (PCR) Ethyl Alcohol mg/dL 01/23/23 01/23/23 01/23/23 Range/Units 20:56 20:44 20:26 WBC (4.8-10.8) x10^3/uL RBC (4.20-5.40) 10^6/uL Hgb (12.0-16.0) g/dL Hct (37.0-47.0) % MCV (81.0-99.0) fL MCH (27.0-31.0) pg MCHC (32.0-36.0) g/dL RDW (12.0-15.0) % Plt Count (130-450) 10^3/uL MPV (7.9-10.8) fL Neut # (Auto) (1.5-6.6) 10^3/uL Lymph # (Auto) (1.5-3.5) 10^3/uL Gaines # (Auto) (0.0-1.0) 10^3/uL Eos # (Auto) (0.0-0.7) 10^3/uL Baso # (Auto) (0.0-0.1) 10^3/uL Absolute Nucleated RBC x10^3/uL Nucleated RBC % /100WBC D-Dimer < 200.0 L (200.0-255.0) ng/mL VBG pH 7.327 (7.31-7.41) VBG pCO2 40.3 L (41-51) mmHg VBG pO2 45.0 (25-47) mmHg VBG HCO3 20.6 L (23-28) mmol/L VBG Total CO2 21.9 L (24-29) mmol/L VBG O2 Saturation 75.6 (60-80) % VBG Base Excess -5.0 L (-2 - +2) mmol/L Sodium (135-145) mmol/L Potassium (3.5-5.0) mmol/L Chloride (101-111) mmol/L Carbon Dioxide (21-32) mmol/L Anion Gap (6-13) BUN (6-20) mg/dL Creatinine (0.4-1.0) mg/dL Estimated GFR (MDRD) (>89) Glucose (70-100) mg/dL POC Whole Bld Glucose (70 - 100) mg/dL Estimat Average Glucose (70-100) mg/dL Hemoglobin A1c % (4.27-6.07) % Calcium (8.5-10.3) mg/dL Phosphorus (2.5-4.6) mg/dL Magnesium (1.7-2.8) mg/dL Total Bilirubin (0.2-1.0) mg/dL AST (10-42) IU/L ALT (10-60) IU/L Alkaline Phosphatase (42-121) IU/L Troponin I High Sens (2.3-14.8) ng/L B-Natriuretic Peptide (5-100) pg/mL Total Protein (6.7-8.2) g/dL Albumin (3.2-5.5) g/dL Globulin (2.1-4.2) g/dL Albumin/Globulin Ratio (1.0-2.2) Lipase (22-51) U/L Procalcitonin (<0.5) ng/mL Nasal Adenovirus (PCR) Nasal B. parapertussis DNA (PCR) Nasal Coronavir 229E PCR Nasal Coronavir HKU1 PCR Nasal Coronavir NL63 PCR Nasal Coronavir OC43 PCR Nasal Enterovir/Rhinovir PCR Nasal Influenza B PCR Nasal Influenza A PCR Nasal Parainfluen 1 PCR Nasal Parainfluen 2 PCR Nasal Parainfluen 3 PCR Nasal Parainfluen 4 PCR Nasal RSV (PCR) Nasal B.pertussis DNA PCR Nasal C.pneumoniae (PCR) Ayan Human Metapneumo PCR Nasal M.pneumoniae (PCR) Nasal SARS-CoV-2 (PCR) Ethyl Alcohol 268.6 mg/dL 01/23/23 01/23/23 01/23/23 Range/Units 20:26 20:26 20:26 WBC 9.3 (4.8-10.8) x10^3/uL RBC 4.44 (4.20-5.40) 10^6/uL Hgb 14.1 (12.0-16.0) g/dL Hct 44.5 (37.0-47.0) % MCV 100.2 H (81.0-99.0) fL MCH 31.8 H (27.0-31.0) pg MCHC 31.7 L (32.0-36.0) g/dL RDW 12.8 (12.0-15.0) % Plt Count 244 (130-450) 10^3/uL MPV 9.9 (7.9-10.8) fL Neut # (Auto) 5.0 (1.5-6.6) 10^3/uL Lymph # (Auto) 3.4 (1.5-3.5) 10^3/uL Gaines # (Auto) 0.6 (0.0-1.0) 10^3/uL Eos # (Auto) 0.2 (0.0-0.7) 10^3/uL Baso # (Auto) 0.0 (0.0-0.1) 10^3/uL Absolute Nucleated RBC 0.00 x10^3/uL Nucleated RBC % 0.0 /100WBC D-Dimer (200.0-255.0) ng/mL VBG pH (7.31-7.41) VBG pCO2 (41-51) mmHg VBG pO2 (25-47) mmHg VBG HCO3 (23-28) mmol/L VBG Total CO2 (24-29) mmol/L VBG O2 Saturation (60-80) % VBG Base Excess (-2 - +2) mmol/L Sodium 142 (135-145) mmol/L Potassium 3.5 (3.5-5.0) mmol/L Chloride 104 (101-111) mmol/L Carbon Dioxide 24 (21-32) mmol/L Anion Gap 14.0 H (6-13) BUN 9 (6-20) mg/dL Creatinine 0.7 (0.4-1.0) mg/dL Estimated GFR (MDRD) 88 L (>89) Glucose 229 H (70-100) mg/dL POC Whole Bld Glucose (70 - 100) mg/dL Estimat Average Glucose (70-100) mg/dL Hemoglobin A1c % (4.27-6.07) % Calcium 9.1 (8.5-10.3) mg/dL Phosphorus (2.5-4.6) mg/dL Magnesium (1.7-2.8) mg/dL Total Bilirubin 0.3 (0.2-1.0) mg/dL AST 20 (10-42) IU/L ALT 19 (10-60) IU/L Alkaline Phosphatase 55 (42-121) IU/L Troponin I High Sens 4.4 (2.3-14.8) ng/L B-Natriuretic Peptide (5-100) pg/mL Total Protein 8.1 (6.7-8.2) g/dL Albumin 4.3 (3.2-5.5) g/dL Globulin 3.8 (2.1-4.2) g/dL Albumin/Globulin Ratio 1.1 (1.0-2.2) Lipase 36 (22-51) U/L Procalcitonin (<0.5) ng/mL Nasal Adenovirus (PCR) Nasal B. parapertussis DNA (PCR) Nasal Coronavir 229E PCR Nasal Coronavir HKU1 PCR Nasal Coronavir NL63 PCR Nasal Coronavir OC43 PCR Nasal Enterovir/Rhinovir PCR Nasal Influenza B PCR Nasal Influenza A PCR Nasal Parainfluen 1 PCR Nasal Parainfluen 2 PCR Nasal Parainfluen 3 PCR Nasal Parainfluen 4 PCR Nasal RSV (PCR) Nasal B.pertussis DNA PCR Nasal C.pneumoniae (PCR) Ayan Human Metapneumo PCR Nasal M.pneumoniae (PCR) Nasal SARS-CoV-2 (PCR) Ethyl Alcohol mg/dL 01/23/23 Range/Units 20:26 WBC (4.8-10.8) x10^3/uL RBC (4.20-5.40) 10^6/uL Hgb (12.0-16.0) g/dL Hct (37.0-47.0) % MCV (81.0-99.0) fL MCH (27.0-31.0) pg MCHC (32.0-36.0) g/dL RDW (12.0-15.0) % Plt Count (130-450) 10^3/uL MPV (7.9-10.8) fL Neut # (Auto) (1.5-6.6) 10^3/uL Lymph # (Auto) (1.5-3.5) 10^3/uL Gaines # (Auto) (0.0-1.0) 10^3/uL Eos # (Auto) (0.0-0.7) 10^3/uL Baso # (Auto) (0.0-0.1) 10^3/uL Absolute Nucleated RBC x10^3/uL Nucleated RBC % /100WBC D-Dimer (200.0-255.0) ng/mL VBG pH (7.31-7.41) VBG pCO2 (41-51) mmHg VBG pO2 (25-47) mmHg VBG HCO3 (23-28) mmol/L VBG Total CO2 (24-29) mmol/L VBG O2 Saturation (60-80) % VBG Base Excess (-2 - +2) mmol/L Sodium (135-145) mmol/L Potassium (3.5-5.0) mmol/L Chloride (101-111) mmol/L Carbon Dioxide (21-32) mmol/L Anion Gap (6-13) BUN (6-20) mg/dL Creatinine (0.4-1.0) mg/dL Estimated GFR (MDRD) (>89) Glucose (70-100) mg/dL POC Whole Bld Glucose (70 - 100) mg/dL Estimat Average Glucose (70-100) mg/dL Hemoglobin A1c % (4.27-6.07) % Calcium (8.5-10.3) mg/dL Phosphorus (2.5-4.6) mg/dL Magnesium (1.7-2.8) mg/dL Total Bilirubin (0.2-1.0) mg/dL AST (10-42) IU/L ALT (10-60) IU/L Alkaline Phosphatase (42-121) IU/L Troponin I High Sens (2.3-14.8) ng/L B-Natriuretic Peptide (5-100) pg/mL Total Protein (6.7-8.2) g/dL Albumin (3.2-5.5) g/dL Globulin (2.1-4.2) g/dL Albumin/Globulin Ratio (1.0-2.2) Lipase (22-51) U/L Procalcitonin (<0.5) ng/mL Nasal Adenovirus (PCR) NOT DETECTED Nasal B. parapertussis DNA (PCR) NOT DETECTED Nasal Coronavir 229E PCR NOT DETECTED Nasal Coronavir HKU1 PCR NOT DETECTED Nasal Coronavir NL63 PCR NOT DETECTED Nasal Coronavir OC43 PCR NOT DETECTED Nasal Enterovir/Rhinovir PCR NOT DETECTED Nasal Influenza B PCR NOT DETECTED Nasal Influenza A PCR NOT DETECTED Nasal Parainfluen 1 PCR NOT DETECTED Nasal Parainfluen 2 PCR NOT DETECTED Nasal Parainfluen 3 PCR DETECTED A Nasal Parainfluen 4 PCR NOT DETECTED Nasal RSV (PCR) NOT DETECTED Nasal B.pertussis DNA PCR NOT DETECTED Nasal C.pneumoniae (PCR) NOT DETECTED Ayan Human Metapneumo PCR NOT DETECTED Nasal M.pneumoniae (PCR) NOT DETECTED Nasal SARS-CoV-2 (PCR) NOT DETECTED Ethyl Alcohol mg/dL ABX Reporting Has patient been on IV antibiotics over the past 48 hours?: Yes Assessment/Plan - Problem List (1) Parainfluenza virus infection Impression: The patient tested positive for parainfluenza 3. This likely caused her pneumonia and asthma exacerbation. She does not have a fever at this time. Plan: Continue breathing treatments (duoneb) and antitussives Continue O2 support with 1L/min Followup labs CBC, BMP daily (2) Acute hypoxemic respiratory failure Impression: This is likely secondary to parainfluenza, pneumonia and asthma exacerbation. In the ER on 01/23, her O2 saturation was 88% on room air. Consequently, she was placed on 2L-3L/min of oxygen overnight. On 01/24 at 08:00, her oxygen was decreased to 1L/min and her O2 is now 95%. Plan: Treat pneumonia with ceftriazone for a total of 5 days. Today was day 1. Follow up labs daily Sputum culture rejected 01/24 due to too many epithelial cells, but I will not be reordering another one because she tested positive for parainflenza Continue O2 support Continue incentive spirometry and Duoneb therapy (3) Atypical pneumonia Conclusion/Plan: The patient's history, symptoms, and imaging support the diagnosis of atypical pneumonia. Because the patient is an alcoholic, this also places her at an increased risk for strep pneumonia. Because of this, empiric ceftriaxone IV was started on 01/24. Her WBC count has decreased from 9.3 to 5.3 since admission. X-ray from 01/23 shows: Bilateral scattered indistinct opacities are nonspecific any may reflect atypical pneumonia. Heart size was normal. Plan: Continue ceftriaxone IV for a total of 5 days. Today was day 1 Continue breathing treatments (duoneb) and antitussives Continue O2 support with 1L/min Followup labs CBC, BMP daily (4) Asthma Conclusion/Plan: Patient has a history of asthma. This exacerbation is likely secondary to pneumonia. Plan: Continue ceftriaxone IV Continue breathing treatments (duoneb) and antitussives Continue O2 support with 1L/min (5) Alcoholic intoxication Conclusion/Plan: On admission, patient was found to have an ethyl alcohol level of 268.6. She admits to drinking at least a pint of Vodka daily. She was counseled to stop alcohol abuse. Librium was increased from 5 mg to 10 mg on 01/24 because she did not feel its effects. Plan: [facility] monitor and start protocol. 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 On admission, her bp was 139/55. Her latest reading was 146/79. Plan: Continue to monitor blood pressure daily Continue home medication, losartan Qualifiers: Hypertension type: unspecified Qualified Code(s): I10 - Essential (primary) hypertension (8) Depression Conclusion/Plan: Continue home antidepressant Fluoxetine and buspirone Qualifiers: Depression Type: unspecified Qualified Code(s): F32.9 - Major depressive disorder, single episode, unspecified (9) Chronic low back pain Conclusion/Plan: Patient has chronic low back pain managed with opioids. Patient requested that we restart her home medications because she's having pain from sitting down and lying in bed. Plan: Restart home regimen [place] Restart home mediation gabapentin 900 mg TID
[2023-01-24] MEDS: cefTRIAXone 2 GM in SODIUM CHLORIDE 0.9% MINIBAG 100 ML IV SCH (20:17)
[2023-01-24] MEDS: AZITHROMYCIN INJ 500 MG in SODIUM CHLORIDE 0.9% 250 ML IV SCH (21:38)
[2023-01-24] MEDS: ATORVASTATIN 10 MG TABLET PO SCH (21:39)
[2023-01-24] MEDS: chlordiazePOXIDE 5 MG CAPSULE PO SCH (21:47)
[2023-01-25] MEDS: chlordiazePOXIDE 5 MG CAPSULE PO SCH ×3 (04:40→15:24)
[2023-01-25] MEDS: guaiFENesin/DEXTROMETHORPHAN 10 ML UDC PO PRN (05:19)
[2023-01-25] MEDS: GABAPENTIN 300 MG CAPSULE PO SCH ×3 (05:20→22:49)
[2023-01-25] MEDS: IPRATROPIUM/ALBUTEROL 3 ML NEB INH SCH ×4 (06:54→20:30)
--- NOTE | 2023-01-25 07:40 | PROVIDER PROGRESS NOTE ---
Assessment/Plan - Problem List (1) Acute hypoxemic respiratory failure Assessment/Plan: This is likely secondary to parainfluenza, pneumonia and asthma exacerbation. In the ER on 01/23, her O2 saturation was 88% on room air. Consequently, she was placed on 2L-3L/min of oxygen overnight. On 01/24 at 08:00, her oxygen was decreased to 1L/min and her O2 sat was 95%. Sputum culture rejected 01/24 due to too many epithelial cells, but I will not be reordering another one because she tested positive for parainflenza. On 01/25, patient reported worsening SOB and her oxygen was increased to 2L/min at 08:00 with O2 sat at 92%. I increased her guaifenesin dose to 600 mg bid to help with congestion. I also started Pulmicort because the patient had persistent wheezing and the Duoneb treatments haven't been helping her much today. Plan: Continue IV ceftriazone for a total of 7 days. Today is day 2. Continue IV azithromycin for 3 days. Total is day 2 Continue O2 support Continue incentive spirometry, guaifenesin, and Duoneb therapy Follow up labs daily (2) Atypical pneumonia Conclusion/Plan: The patient's history, symptoms, and imaging support the diagnosis of atypical pneumonia. Because the patient is an alcoholic, this also places her at an increased risk for strep pneumonia. Because of this, empiric ceftriaxone IV and azithromycin IV was started on 01/24. Her WBC count has decreased from 9.3 to 5.3 since admission. Chest X-ray from 01/23 shows: Bilateral scattered indistinct opacities are nonspecific any may reflect atypical pneumonia. Heart size was normal. On 01/25, patient reported significant worsening of her respiratory symptoms, mainly SOB. Because of this, I ordered another chest x-ray. Chest X-ray from 01/25 shows: Slightly larger cardiac contour, possible related to technique. Mildly prominent interstitium may represent edema or atypical infection. There is also vascular crowding given low lung volumes. Because of the chest x-ray results, I ordered a BNP on 01/25 which was within normal range at 79. Last echo performed in 2016 showed EF 55-60% with no valvula r disease. Plan: Continue ceftriaxone IV and azithromycin IV Continue breathing treatments (duoneb), antitussives, and incentive spirometry Continue O2 support with 2L/min Followup labs CBC, BMP daily (3) Parainfluenza Virus Infection Impression: The patient tested positive for parainfluenza 3. This likely caused her pneumonia and asthma exacerbation. She does not have a fever at this time. Plan: Continue breathing treatments (duoneb), incentive spirometry, and antitussives Continue O2 support with 2L/min Followup labs CBC, BMP daily (4) Asthma exacerbation Assessment/Plan: Patient has a history of asthma. This exacerbation is likely secondary to pneumonia and parainfluenza. Because her her worsening SOB on 01/25, I also added Solu-medrol Plan: Continue Solu-medrol Continue ceftriaxone IV and azithromycin IV Continue breathing treatments (duoneb) and antitussives Continue O2 support with 1L/min (5) Alcoholic intoxication Conclusion/Plan: On admission, patient was found to have an ethyl alcohol level of 268.6. She admits to drinking at least a pint of Vodka daily. She was counseled to stop alcohol abuse. On 01/24, Librium was increased from 5 mg to 10 mg because she did not feel its effects. On 01/25, patient was still diaphoretic and feeling anxious, so I increased her Librium to 25 mg for 2-4 doses. Then, I will taper her back down to 10 mg, then 5 mg. Plan: [facility] monitor and start protocol. Continue Librium and Lorazepam as needed hand worker consult Qualifiers: Complication of substance-induced condition: uncomplicated Qualified Code(s): F10.920 - Alcohol use, unspecified with intoxication, uncomplicated (6) Diabetes mellitus type 2 in obesity Conclusion/Plan: A1c came back at 6.5%, indicating type 2 diabetes Plan: Hold home oral meds Manage with SSI and monitor with accuchecks daily (7) Hypertension Conclusion/Plan: Patient has a history of hypertension with no renal failure noted. On admission, her bp was 139/55. Her latest reading on 01/25 was 150/70. Plan: Continue to monitor blood pressure daily Continue home medication losartan Qualifiers: Hypertension type: unspecified Qualified Code(s): I10 - Essential (primary) hypertension (8) Depression Conclusion/Plan: Continue home antidepressant Fluoxetine and buspirone Qualifiers: Depression Type: unspecified Qualified Code(s): F32.9 - Major depressive disorder, single episode, unspecified (9) Chronic low back pain Conclusion/Plan: Patient has chronic low back pain managed with opioids. On 01/24, patient requested that we restart her home medications because she's having pain from sitting down and lying in bed. Plan: Restart home regimen Christmas Restart home mediation gabapentin 900 mg TID - Current Meds Current Meds: Current Medications Generic Name Dose Route Start Last Admin Trade Name Freq PRN Reason Stop Dose Admin Acetaminophen 650 mg 01/24/23 01:46 01/24/23 13:05 Acetaminophen 325 Mg Tablet PO 650 mg Q4HR PRN Administration Pain 1 to 4, or Fever Hydrocodone Bitart/Acetaminophen 1 tab 01/24/23 01:50 01/24/23 09:26 Hydrocod/Acetam 5/325 Mg Tablet PO 1 tab Q6H PRN Administration PAIN Albuterol/Ipratropium 3 ml 01/24/23 19:00 01/25/23 06:54 Ipratropium/Albuterol 3 Ml Neb INH 3 ml RTQID MERLENE Administration Amlodipine Besylate 10 mg 01/24/23 09:00 01/24/23 08:35 Amlodipine 5 Mg Tablet PO 10 mg DAILY MERLENE Administration Atorvastatin Calcium 10 mg 01/24/23 21:00 01/24/23 21:39 Atorvastatin 10 Mg Tablet PO 10 mg QPM MERLENE Administration Buspirone HCl 30 mg 01/24/23 09:00 01/24/23 21:39 Buspirone 5 Mg Tablet PO 30 mg BID MERLENE Administration Chlordiazepoxide HCl 10 mg 01/24/23 22:00 01/25/23 04:40 Chlordiazepoxide 5 Mg Capsule PO 10 mg Q6H MERLENE Administration Fluoxetine HCl 60 mg 01/24/23 09:00 01/24/23 08:36 Fluoxetine 10 Mg Capsule PO 60 mg DAILY MERLENE Administration Gabapentin 900 mg 01/24/23 16:43 01/25/23 05:20 Gabapentin 300 Mg Capsule PO 900 mg TID MERLENE Administration Guaifenesin 10 ml 01/24/23 01:58 01/25/23 05:19 Guaifenesin/Dextromethorphan 10 Ml Udc PO 10 ml Q6HR PRN Administration Cough Heparin Sodium (Porcine) 5,000 unit 01/24/23 09:00 01/24/23 21:46 Heparin 5,000 Unit/Ml Vial SUBQ 5,000 unit BID MERLENE Administration Azithromycin 500 mg/ Sodium 250 mls @ 250 mls/hr 01/24/23 21:00 01/24/23 22:38 Chloride IV 01/25/23 21:59 Infused QPM MERLENE Infusion Ceftriaxone Sodium 2 gm/ 100 mls @ 200 mls/hr 01/24/23 20:30 01/24/23 20:48 Sodium Chloride IV 01/27/23 20:59 Infused 2030 MERLENE Infusion Insulin Human Lispro 1 - 9 unit 01/24/23 17:00 01/24/23 21:39 Insulin Lispro 300 Unit/3 Ml Pen SUBQ 5 unit 0800,1200,1700,2100 MERLENE Administration Protocol Lactobacillus Rhamnosus 1 cap 01/24/23 09:00 01/24/23 08:34 Lactobacillus Rhamnosus Gg Capsule PO 1 cap DAILY MERLENE Administration Lorazepam 1 mg 01/24/23 14:47 01/24/23 15:05 Lorazepam 1 Mg Tablet PO 1 mg Q1H PRN Administration CIWA > 8 Protocol Losartan Potassium 100 mg 01/24/23 09:00 01/24/23 08:35 Losartan 50 Mg Tablet PO 100 mg DAILY MERLENE Administration Sodium Chloride 10 ml 01/24/23 09:00 01/24/23 21:51 Sodium Chloride Flush 0.9% 10 Ml Syringe IVP 10 ml 0100,0900,1700 MERLENE Administration - Lab Result Fish Bone Diagrams: 01/25/23 13:14 01/25/23 13:14 Subjective - Subjective Patient Reports: Cough (intermittent wet-sounding cough), Shortness of Breath (Pt reports her symptoms worsened this morning. She is now having trouble breathing and the Duoneb treatments aren't helping as much as they did yesterday), Other (Diaphoretic, but not shaky) Objective Vital Signs: Vital Signs - 24 hr 01/24/23 01/24/23 01/24/23 07:50 07:55 08:00 Temperature 36.4 C L Heart Rate 69 Heart Rate [ 65 Brachial] Respiratory 20 18 Rate Blood Pressure 154/60 H [Right Brachial artery] O2 Saturation 95 93 If not protocol 2 2 1 : Oxygen Flow, liters/minute 01/24/23 01/24/23 01/24/23 08:31 11:22 11:29 Temperature Heart Rate Heart Rate [ 76 Brachial] Respiratory Rate Blood Pressure 166/71 H 144/77 H [Right Brachial artery] O2 Saturation 96 If not protocol 1 : Oxygen Flow, liters/minute 01/24/23 01/24/23 01/24/23 11:34 11:58 14:57 Temperature 36.4 C L Heart Rate 64 60 Heart Rate [ 58 L Brachial] Respiratory 20 18 20 Rate Blood Pressure 144/77 H [Right Brachial artery] O2 Saturation 94 If not protocol 1 : Oxygen Flow, liters/minute 01/24/23 01/24/23 01/24/23 14:58 15:00 16:42 Temperature 36.4 C L Heart Rate Heart Rate [ 64 Brachial] Respiratory 16 Rate Blood Pressure 146/79 H [Right Brachial artery] O2 Saturation 91 L 93 95 If not protocol 1 1 : Oxygen Flow, liters/minute 01/24/23 01/24/23 01/25/23 18:15 21:00 00:42 Temperature 36.4 C L 36.3 C L Heart Rate 68 Heart Rate [ 63 53 L Brachial] Respiratory 20 18 18 Rate Blood Pressure 132/64 H 134/58 H [Right Brachial artery] O2 Saturation 94 95 If not protocol 1 1 1 : Oxygen Flow, liters/minute 01/25/23 06:54 Temperature Heart Rate 68 Heart Rate [ Brachial] Respiratory 20 Rate Blood Pressure [Right Brachial artery] O2 Saturation If not protocol 1 : Oxygen Flow, liters/minute Oxygen O2 Source Nasal cannula Oxygen Flow Rate 2 I&O (Last 24 Hrs): Intake and Output Totals x24h 01/23/23 01/24/23 01/25/23 23:59 23:59 23:59 Intake Total 3257 550 Output Total 0 Balance 3257 550 General: Alert, Oriented x3, Cooperative, Mild distress (Pt resting in bed, no tripoding, no retractions or accessory muscle use, but loudly wheezing and clearly uncomfortable) Neck: Supple, No JVD Neuro: Alert, Oriented Times 3 Cardiovascular: Regular rate, No murmurs Respiratory: Chest non-tender, Wheezes (Patient wheezing significantly in all lung perez. Inspiratory and expiratory) Skin: No rashes Comments/Notes: Diaphoretic - Results Results: Laboratory Results WBC 5.3 x10^3/uL (4.8-10.8) 01/24/23 04:34 RBC 4.02 10^6/uL (4.20-5.40) L 05/01/23 04:34 Hgb 13.0 g/dL (12.0-16.0) 01/24/23 04:34 Hct 40.5 % (37.0-47.0) 01/24/23 04:34 MCV 100.7 fL (81.0-99.0) H 01/24/23 04:34 MCH 32.3 pg (27.0-31.0) H 01/24/23 04:34 MCHC 32.1 g/dL (32.0-36.0) 01/24/23 04:34 RDW 13.0 % (12.0-15.0) 01/24/23 04:34 Plt Count 225 10^3/uL (130-450) 01/24/23 04:34 MPV 10.4 fL (7.9-10.8) 01/24/23 04:34 Neut # (Auto) 5.0 10^3/uL (1.5-6.6) 01/23/23 20: Lymph # (Auto) 3.4 10^3/uL (1.5-3.5) 01/23/23 20: [place] # (Auto) 0.6 10^3/uL (0.0-1.0) 01/23/23 20: Eos # (Auto) 0.2 10^3/uL (0.0-0.7) 01/23/23 20: Baso # (Auto) 0.0 10^3/uL (0.0-0.1) 01/23/23 20: Absolute Nucleated RBC 0.00 x10^3/uL 01/23/23 20: Nucleated RBC % 0.0 /100WBC 01/23/23 20: D-Dimer < 200.0 ng/mL (200.0-255.0) L 01/23/23 20:56 VBG pH 7.327 (7.31-7.41) 01/23/23 20:44 VBG pCO2 40.3 mmHg (41-51) L 01/23/23 20:44 VBG pO2 45.0 mmHg (25-47) 01/23/23 20:44 VBG HCO3 20.6 mmol/L (23-28) L 01/23/23 20:44 VBG Total CO2 21.9 mmol/L (24-29) L 01/23/23 20:44 VBG O2 Saturation 75.6 % (60-80) 01/23/23 20:44 VBG Base Excess -5.0 mmol/L (-2 - +2) L 01/23/23 20:44 Sodium 138 mmol/L (135-145) 01/24/23 04:34 Potassium 4.1 mmol/L (3.5-5.0) 01/24/23 04:34 Chloride 107 mmol/L (101-111) 01/24/23 04:34 Carbon Dioxide 20 mmol/L (21-32) L 01/24/23 04:34 Anion Gap 11.0 (6-13) 01/24/23 04:34 BUN 9 mg/dL (6-20) 01/24/23 04:34 Creatinine 0.7 mg/dL (0.4-1.0) 01/24/23 04:34 Estimated GFR (MDRD) 88 (>89) L 01/24/23 04:34 Glucose 274 mg/dL (70-100) H 01/24/23 04:34 POC Whole Bld Glucose 236 mg/dL (70 - 100) H 01/24/23 21:13 Estimat Average Glucose 140 mg/dL (70-100) H 01/24/23 04:34 Hemoglobin A1c % 6.5 % (4.27-6.07) H 01/24/23 04:34 Calcium 8.7 mg/dL (8.5-10.3) 01/24/23 04:34 Phosphorus 3.1 mg/dL (2.5-4.6) 01/24/23 04:34 Magnesium 1.9 mg/dL (1.7-2.8) 01/24/23 04:34 Total Bilirubin 0.3 mg/dL (0.2-1.0) 01/23/23 20:26 AST 20 IU/L (10-42) 01/23/23 20:26 ALT 19 IU/L (10-60) 01/23/23 20:26 Alkaline Phosphatase 55 IU/L (42-121) 01/23/23 20:26 Troponin I High Sens < 2.3 ng/L (2.3-14.8) L 01/24/23 04:34 B-Natriuretic Peptide 21 pg/mL (5-100) 01/24/23 04:34 Total Protein 8.1 g/dL (6.7-8.2) 01/23/23 20: Albumin 4.3 g/dL (3.2-5.5) 01/23/23 20:26 Globulin 3.8 g/dL (2.1-4.2) 01/23/23 20:26 Albumin/Globulin Ratio 1.1 (1.0-2.2) 01/23/23 20:26 Lipase 36 U/L (22-51) 01/23/23 20:26 Procalcitonin < 0.05 ng/mL (<0.5) 01/24/23 04:34 Nasal Adenovirus (PCR) NOT DETECTED 01/23/23 20:26 Nasal B. parapertussis DNA (PCR) NOT DETECTED 01/23/23 20:26 Nasal Coronavir 229E PCR NOT DETECTED 01/23/23 20:26 Nasal Coronavir HKU1 PCR NOT DETECTED 01/23/23 20:26 Nasal Coronavir NL63 PCR NOT DETECTED 01/23/23 20:26 Nasal Coronavir OC43 PCR NOT DETECTED 01/23/23 20:26 Nasal Enterovir/Rhinovir PCR NOT DETECTED 01/23/23 20:26 Nasal Influenza B PCR NOT DETECTED 01/23/23 20:26 Nasal Influenza A PCR NOT DETECTED 01/23/23 20:26 Nasal Parainfluen 1 PCR NOT DETECTED 01/23/23 20:26 Nasal Parainfluen 2 PCR NOT DETECTED 01/23/23 20:26 Nasal Parainfluen 3 PCR DETECTED A 01/23/23 20:26 Nasal Parainfluen 4 PCR NOT DETECTED 01/23/23 20:26 Nasal RSV (PCR) NOT DETECTED 01/23/23 20:26 Nasal B.pertussis DNA PCR NOT DETECTED 01/23/23 20:26 Nasal C.pneumoniae (PCR) NOT DETECTED 01/23/23 20:26 Ayan Human Metapneumo PCR NOT DETECTED 01/23/23 20:26 Nasal M.pneumoniae (PCR) NOT DETECTED 01/23/23 20:26 Nasal SARS-CoV-2 (PCR) NOT DETECTED 01/23/23 20:26 Ethyl Alcohol 268.6 mg/dL 01/23/23 20:26 - Procedures Procedures: Procedures REPAIR ABDOMINAL WALL, OPEN APPROACH (08/16/16) ABX Reporting Has patient been on IV antibiotics over the past 48 hours?: Yes
[2023-01-25] MEDS: INSULIN LISPRO 300 UNIT/3 ML PEN SUBQ SCH ×4 (08:14→21:34)
[2023-01-25] MEDS: HEPARIN 5,000 UNIT/ML VIAL SUBQ SCH ×2 (08:16→21:36)
[2023-01-25] MEDS: amLODIPine 5 MG TABLET PO SCH (08:19)
[2023-01-25] MEDS: busPIRone 5 MG TABLET PO SCH ×2 (08:19→21:25)
[2023-01-25] MEDS: LOSARTAN 50 MG TABLET PO SCH (08:20)
[2023-01-25] MEDS: FLUoxetine 10 MG CAPSULE PO SCH (08:20)
[2023-01-25] MEDS: LACTOBACILLUS RHAMNOSUS GG CAPSULE PO SCH (08:20)
[2023-01-25] MEDS: SODIUM CHLORIDE FLUSH 0.9% 10 ML SYRINGE IVP SCH ×2 (08:22→13:32)
[2023-01-25] MEDS: HYDROcod/ACETAM 5/325 MG TABLET PO PRN ×2 (08:28→15:19)
[2023-01-25] MEDS ORDERED: IPRATROPIUM/ALBUTEROL 3 ML NEB INH PRN (11:11)
[2023-01-25] MEDS: guaiFENesin 600 MG TABLET PO SCH ×2 (12:39→21:26)
[2023-01-25] MEDS: LORATADINE 10 MG TABLET PO SCH (12:44)
--- NOTE | 2023-01-25 12:47 | XRAY Report ---
PROCEDURE: Chest 1 View X-Ray INDICATIONS: Worse SOB and wheezing TECHNIQUE: One view of the chest was acquired. COMPARISON: 01/23/2023 FINDINGS: Surgical changes and devices: None. Lungs and pleura: Low lung volumes. There is vascular crowding and interstitial prominence. No dense consolidation or pleural effusion. Mediastinum: Heart size is slightly larger than prior. Bones and chest wall: No suspicious bony lesions. Overlying soft tissues appear unremarkable. IMPRESSION: Slightly larger cardiac contour, possibly related to technique. Mildly prominent interstitium may rep resent edema or atypical infection. There is also a component of vascular crowding given low lung vol umes. Consider future imaging surveillance to assess for resolution. Reviewed by: Iban Ledezma MD on 01/25/2023 12:45 PM PDT Approved by: Iban Ledezma MD on 01/25/2023 12:45 PM PDT Station ID: [id number]
[2023-01-25 13:21] LABS: BASOPHILS # (AUTO) 0.1 10^3/uL (0.0-0.1); BASOPHILS % (AUTO) 0.5 %; EOSINOPHILS # (AUTO) 0.1 10^3/uL (0.0-0.7); EOSINOPHILS % (AUTO) 0.7 %; HCT - HEMATOCRIT 43.5 % (37.0-47.0); HGB - HEMOGLOBIN 14.1 g/dL (12.0-16.0); LYMPHOCYTES # (AUTO) 2.8 10^3/uL (1.5-3.5); LYMPHOCYTES % (AUTO) 28.3 %; MEAN CORPUSCULAR HEMOGLOBIN 32.4 pg (27.0-31.0); MEAN CORPUSCULAR HGB CONC 32.4 g/dL (32.0-36.0); MEAN PLATELET VOLUME 9.8 fL (7.9-10.8); MONOCYTES # (AUTO) 0.5 10^3/uL (0.0-1.0); MONOCYTES % (AUTO) 5.2 %; NEUTROPHILS # (AUTO) 6.5 10^3/uL (1.5-6.6); NEUTROPHILS % (AUTO) 64.9 %; PLT - PLATELET COUNT 246 10^3/uL (130-450); RED BLOOD COUNT 4.35 10^6/uL (4.20-5.40)
[2023-01-25] MEDS: methylPREDNISolone SUCCINATE 40 MG/ML VIAL IVP SCH ×2 (13:32→22:49)
[2023-01-25 13:57] LABS: CALCIUM 9.5 mg/dL (8.5-10.3); CREATININE 0.8 mg/dL (0.4-1.0); POTASSIUM 4.2 mmol/L (3.5-5.0)
[2023-01-25] MEDS: BUDESONIDE 0.5 MG/2 ML NEB INH SCH (20:30)
[2023-01-25] MEDS ORDERED: AZITHROMYCIN INJ 500 MG in SODIUM CHLORIDE 0.9% 250 ML IV SCH (21:00)
[2023-01-25] MEDS: chlordiazePOXIDE 25 MG CAPSULE PO SCH (21:25)
[2023-01-25] MEDS: cefTRIAXone 2 GM in SODIUM CHLORIDE 0.9% MINIBAG 100 ML IV SCH (21:26)
[2023-01-25] MEDS: ATORVASTATIN 10 MG TABLET PO SCH (21:26)
[2023-01-25] MEDS: SODIUM CHLORIDE FLUSH 0.9% 10 ML SYRINGE IVP PRN ×2 (21:30→22:57)
[2023-01-25] MEDS: AZITHROMYCIN INJ 500 MG in SODIUM CHLORIDE 0.9% 250 ML IV SCH (22:46)
[2023-01-25] MEDS: traZODone 50 MG TABLET PO PRN (22:49)
[2023-01-26] MEDS: SODIUM CHLORIDE FLUSH 0.9% 10 ML SYRINGE IVP SCH ×3 (00:02→16:25)
[2023-01-26] MEDS: chlordiazePOXIDE 25 MG CAPSULE PO SCH ×4 (02:05→20:10)
[2023-01-26 05:08] LABS: HCT - HEMATOCRIT 43.6 % (37.0-47.0); LYMPHOCYTES % (AUTO) 12.6 %; MEAN CORPUSCULAR HEMOGLOBIN 31.7 pg (27.0-31.0); MEAN CORPUSCULAR HGB CONC 32.1 g/dL (32.0-36.0); MEAN CORPUSCULAR VOLUME 98.6 fL (81.0-99.0); MEAN PLATELET VOLUME 9.9 fL (7.9-10.8); MONOCYTES # (AUTO) 0.1 10^3/uL (0.0-1.0); MONOCYTES % (AUTO) 1.3 %; NEUTROPHILS # (AUTO) 6.7 10^3/uL (1.5-6.6); NEUTROPHILS % (AUTO) 85.5 %; PLT - PLATELET COUNT 268 10^3/uL (130-450); RED BLOOD COUNT 4.42 10^6/uL (4.20-5.40); RED CELL DISTRIBUTION WIDTH 12.3 % (12.0-15.0); WHITE BLOOD COUNT 7.9 x10^3/uL (4.8-10.8)
[2023-01-26] MEDS: methylPREDNISolone SUCCINATE 40 MG/ML VIAL IVP SCH ×3 (05:21→22:00)
[2023-01-26] MEDS: GABAPENTIN 300 MG CAPSULE PO SCH ×3 (05:21→21:45)
[2023-01-26 05:40] LABS: CALCIUM 9.7 mg/dL (8.5-10.3); CREATININE 0.7 mg/dL (0.4-1.0); POTASSIUM 4.3 mmol/L (3.5-5.0)
[2023-01-26] MEDS: busPIRone 5 MG TABLET PO SCH ×2 (07:44→21:45)
[2023-01-26] MEDS: LOSARTAN 50 MG TABLET PO SCH (07:44)
[2023-01-26] MEDS: FLUoxetine 10 MG CAPSULE PO SCH (07:44)
[2023-01-26] MEDS: guaiFENesin 600 MG TABLET PO SCH ×2 (07:45→21:45)
[2023-01-26] MEDS: INSULIN LISPRO 300 UNIT/3 ML PEN SUBQ SCH ×4 (07:45→21:52)
[2023-01-26] MEDS: LORATADINE 10 MG TABLET PO SCH (07:45)
[2023-01-26] MEDS: MULTIVITAMIN TABLET PO SCH (07:45)
[2023-01-26] MEDS: LACTOBACILLUS RHAMNOSUS GG CAPSULE PO SCH (07:45)
[2023-01-26] MEDS: HYDROcod/ACETAM 5/325 MG TABLET PO PRN ×3 (08:05→22:05)
[2023-01-26] MEDS: amLODIPine 5 MG TABLET PO SCH (08:05)
[2023-01-26] MEDS: BUDESONIDE 0.5 MG/2 ML NEB INH SCH ×2 (08:06→20:25)
[2023-01-26] MEDS: HEPARIN 5,000 UNIT/ML VIAL SUBQ SCH ×2 (08:06→21:49)
[2023-01-26] MEDS: CHOLECALCIFEROL 25 MCG TABLET PO SCH (08:06)
[2023-01-26] MEDS: IPRATROPIUM/ALBUTEROL 3 ML NEB INH SCH ×4 (08:06→20:25)
--- NOTE | 2023-01-26 08:36 | PROVIDER PROGRESS NOTE ---
Assessment/Plan - Problem List (1) Acute hypoxemic respiratory failure Assessment/Plan: This is likely secondary to parainfluenza, pneumonia and asthma exacerbation. In the ER on 01/23, her O2 saturation was 88% on room air. Consequently, she was placed on 2L-3L/min of oxygen overnight. On 01/24 at 08:00, her oxygen was decreased to 1L/min and her O2 sat was 95%. Sputum culture rejected 01/24 due to too many epithelial cells, but I will not be reordering another one because she tested positive for parainflenza. On 01/25, patient reported worsening SOB and her oxygen was increased to 2L/min at 08:00 with O2 sat at 92%. I increased her guaifenesin dose to 600 mg bid to help with congestion. I also started Pulmicort because the patient had persistent wheezing and the Duoneb treatments haven't been helping her much today. Plan: Continue O2 support 2L/min Continue incentive spirometry, guaifenesin, and Duoneb therapy Follow up labs daily Patient agreed to go home on oxygen if she needs it. Potential d/c on 01/27 (2) Atypical pneumonia Conclusion/Plan: The patient's history, symptoms, and imaging support the diagnosis of atypical pneumonia. Because the patient is an alcoholic, this also places her at an increased risk for strep pneumonia. Because of this, empiric ceftriaxone IV and azithromycin IV was started on 01/24. Her WBC count has decreased from 9.3 to 5.3 since admission. Chest X-ray from 01/23 shows: Bilateral scattered indistinct opacities are nonspecific any may reflect atypical pneumonia. Heart size was normal. On 01/25, patient reported significant worsening of her respiratory symptoms, mainly SOB. Because of this, I ordered another chest x-ray. Chest X-ray from 01/25 shows: Slightly larger cardiac contour, possible related to technique. Mildly prominent interstitium may represent edema or atypical infection. There is also vascular crowding given low lung volumes. Because of the chest x-ray results, I ordered a BNP on 01/25 which was within normal range at 79. Last echo performed in 2016 showed EF 55-60% with no valvular disease. On 01/26, treatment with IV azithromycin completed Plan: Continue ceftriaxone for a total of 7 days. Today was day 3. Continue breathing treatments (duoneb), antitussives, and incentive spirometry Continue O2 support with 2L/min Followup labs CBC, BMP daily (3) Parainfluenza Virus Infection Impression: The patient tested positive for parainfluenza 3. This likely caused her pneumonia and asthma exacerbation. She does not have a fever at this time. Plan: Continue breathing treatments (duoneb), incentive spirometry, and antitussives Continue O2 support with 2L/min Followup labs CBC, BMP daily (4) Asthma exacerbation Assessment/Plan: Patient has a history of asthma. This exacerbation is likely secondary to pneumonia and parainfluenza. Because of her worsening SOB on 01/25, I added Solu-medrol. On 01/26, the patient reported insomnia and increased appetite, so I will taper the Solu-Medrol Plan: Taper Solu-medrol Continue antibiotics Continue breathing treatments (duoneb) and antitussives Continue O2 support with 2L/min (5) Alcoholic intoxication Conclusion/Plan: On admission, patient was found to have an ethyl alcohol level of 268.6. She admits to drinking at least a pint of Vodka daily. She was counseled to stop alcohol abuse and given an AA book. On 01/24, Librium was increased from 5 mg to 10 mg because she did not feel its effects, citing anxiety and diaphoresis. On 01/25, patient was still diaphoretic and feeling anxious, so I increased her Librium to 25 mg for 2-4 doses. Then, I will taper her back down to 10 mg, then 5 mg. On 01/26, she still reported feeling diaphoretic, but I suspect this is caused by the very hot heating pad she is lying on for her lower back pain. Plan: [facility] monitor and start protocol. Continue Librium and Lorazepam as needed bridge gang worker consult Qualifiers: Complication of substance-induced condition: uncomplicated Qualified Code(s): F10.920 - Alcohol use, unspecified with intoxication, uncomplicated (6) Diabetes mellitus type 2 in obesity Conclusion/Plan: A1c came back at 6.5%, indicating type 2 diabetes. On 01/26, her blood sugar at 04:00 was 282. She is on a diabetic diet, however, throughout her stay, her mom has been bringing her pie. Nutrition consult has been ordered to discuss dietary modifications in diabetes management. I have placed a sign outside her door that does not allow outside food. On 01/26, I added insulin glargine 5 units nightly and resumed her home med glipizide Plan: Continue home med glipizide and SSI insulin Continue insulin glargine Monitor with accuchecks daily (7) Hypertension Conclusion/Plan: Patient has a history of hypertension with no renal failure noted. On admission, her bp was 139/55. Her latest reading on 01/26 was 144/60. Plan: Continue to monitor blood pressure daily Continue home medication losartan Qualifiers: Hypertension type: unspecified Qualified Code(s): I10 - Essential (primary) hypertension (8) Depression Conclusion/Plan: Continue home antidepressant fluoxetine and buspirone Qualifiers: Depression Type: unspecified Qualified Code(s): F32.9 - Major depressive disorder, single episode, unspecified (9) Chronic low back pain Conclusion/Plan: Patient has chronic low back pain managed with opioids and gabapentin at home. On 01/24, patient requested that we restart her home medications because she's having pain from sitting down and lying in bed. On 01/26, she realized that the sweatiness she has been experiencing is probably from the heating pad that she has on her back, which was turned up to the highest setting. The temp was subsequently turned down. Plan: Continue home regimen [place] Continue home mediation gabapentin 900 mg TID - Current Meds Current Meds: Current Medications Generic Name Dose Route Start Last Admin Trade Name Ijeoma PRN Reason Stop Dose Admin Acetaminophen 650 mg 01/24/23 01:46 01/24/23 13:05 Acetaminophen 325 Mg Tablet PO 650 mg Q4HR PRN Administration Pain 1 to 4, or Fever Hydrocodone Bitart/Acetaminophen 1 tab 01/24/23 01:50 01/26/23 08:05 Hydrocod/Acetam 5/325 Mg Tablet PO 1 tab Q6H PRN Administration PAIN Albuterol/Ipratropium 3 ml 01/24/23 19:00 01/26/23 08:06 Ipratropium/Albuterol 3 Ml Neb INH 3 ml RTQID MERLENE Administration Amlodipine Besylate 10 mg 01/26/23 09:00 01/26/23 08:05 Amlodipine 5 Mg Tablet PO 10 mg DAILY MERLENE Administration Atorvastatin Calcium 10 mg 01/24/23 21:00 01/25/23 21:26 Atorvastatin 10 Mg Tablet PO 10 mg QPM MERLENE Administration Budesonide 0.5 mg 01/25/23 19:00 01/26/23 08:06 Budesonide 0.5 Mg/2 Ml Neb INH 0.5 mg RTBID MERLENE Administration Buspirone HCl 15 mg 01/25/23 21:00 01/26/23 07:44 Buspirone 5 Mg Tablet PO 15 mg BID MERLENE Administration Chlordiazepoxide HCl 25 mg 01/25/23 20:00 01/26/23 08:05 Chlordiazepoxide 25 Mg Capsule PO 25 mg Q6H MERLENE Administration Cholecalciferol 25 mcg 01/26/23 09:00 01/26/23 08:06 Cholecalciferol 25 Mcg Tablet PO 25 mcg DAILY MERLENE Administration Fluoxetine HCl 60 mg 01/24/23 09:00 01/26/23 07:44 Fluoxetine 10 Mg Capsule PO 60 mg DAILY MERLENE Administration Gabapentin 900 mg 01/24/23 16:43 01/26/23 05:21 Gabapentin 300 Mg Capsule PO 900 mg TID MERLENE Administration Guaifenesin 10 ml 01/24/23 01:58 01/25/23 05:19 Guaifenesin/Dextromethorphan 10 Ml Udc PO 10 ml Q6HR PRN Administration Cough Guaifenesin 600 mg 01/25/23 12:00 01/26/23 07:45 Guaifenesin 600 Mg Tablet PO 600 mg BID MERLENE Administration Heparin Sodium (Porcine) 5,000 unit 01/24/23 09:00 01/26/23 08:06 Heparin 5,000 Unit/Ml Vial SUBQ 5,000 unit BID MERLENE Administration Ceftriaxone Sodium 2 gm/ 100 mls @ 200 mls/hr 01/24/23 20:30 01/25/23 21:58 Sodium Chloride IV 01/27/23 20:59 Infused 2029 MERLENE Infusion Insulin Human Lispro 2 - 10 unit 01/25/23 21:00 01/26/23 07:45 Insulin Lispro 300 Unit/3 Ml Pen SUBQ 8 unit 0800,1200,1700,2100 MERLENE Administration Protocol Lactobacillus Rhamnosus 1 cap 01/24/23 09:00 01/26/23 07:45 Lactobacillus Rhamnosus Gg Capsule PO 1 cap DAILY MERLENE Administration Loratadine 10 mg 01/25/23 12:00 01/26/23 07:45 Loratadine 10 Mg Tablet PO 10 mg DAILY MERLENE Administration Lorazepam 1 mg 01/24/23 14:47 01/24/23 15:05 Lorazepam 1 Mg Tablet PO 1 mg Q1H PRN Administration CIWA > 8 Protocol Losartan Potassium 100 mg 01/24/23 09:00 01/26/23 07:44 Losartan 50 Mg Tablet PO 100 mg DAILY MERLENE Administration Methylprednisolone 80 mg 01/25/23 14:00 01/26/23 05:21 Methylprednisolone Succinate 40 Mg/Ml Vial IVP 80 mg TID MERLENE Administration Multivitamins 1 tab 01/26/23 08:00 01/26/23 07:45 Multivitamin Tablet PO 1 tab DAILYWM MERLENE Administration Sodium Chloride 10 ml 01/24/23 01:46 01/25/23 22:57 Sodium Chloride Flush 0.9% 10 Ml Syringe IVP 10 ml PRN PRN Administration NEEDED PER PROVIDER ORDERS Sodium Chloride 10 ml 01/24/23 09:00 01/26/23 07:46 Sodium Chloride Flush 0.9% 10 Ml Syringe IVP 10 ml 0100,0900,1700 MERLENE Administration Trazodone HCl 100 mg 01/24/23 01:50 01/25/23 22:49 Trazodone 50 Mg Tablet PO 100 mg QPM PRN Administration Insomnia - Lab Result Fish Bone Diagrams: 01/26/23 04:56 01/26/23 04:56 Subjective - Subjective Patient Reports: Feeling Better, Back Pain, Cough, Fatigue, Shortness of Breath, Other (Diaphoretic, however is using a heating pad on the hottest setting) Objective Vital Signs: Vital Signs - 24 hr 01/25/23 01/25/23 01/25/23 10:46 13:00 15:13 Temperature 36.7 C Heart Rate 69 68 Heart Rate [ 68 Brachial] Respiratory 20 20 20 Rate Blood Pressure 137/70 H [Right Brachial artery] O2 Saturation 97 If not protocol : Oxygen Flow, liters/minute 01/25/23 01/25/23 01/25/23 16:16 20:30 21:00 Temperature 36.8 C 36.8 C Heart Rate 70 Heart Rate [ 57 L 62 Brachial] Respiratory 20 18 18 Rate Blood Pressure 151/65 H 144/73 H [Right Brachial artery] O2 Saturation 97 94 If not protocol 2 2 2 : Oxygen Flow, liters/minute 01/26/23 01/26/23 01/26/23 00:02 05:22 07:33 Temperature 36.4 C L 36.5 C 36.6 C Heart Rate Heart Rate [ 69 62 57 L Brachial] Respiratory 18 18 20 Rate Blood Pressure 108/55 L 153/65 H 145/60 H [Right Brachial artery] O2 Saturation 94 94 92 If not protocol 2 2 2 : Oxygen Flow, liters/minute Oxygen O2 Source Nasal cannula Oxygen Flow Rate 2 I&O (Last 24 Hrs): Intake and Output Totals x24h 01/24/23 01/25/23 01/26/23 23:59 23:59 23:59 Intake Total 3257 2110 300 Output Total 2 Balance 3257 2108 300 General: Alert, Oriented x3, No acute distress Neck: Supple, No JVD Neuro: Alert, CN 2-12 Grossly Intact, Oriented Times 3 Cardiovascular: Regular rate, No murmurs, Other (Heart sounds faint, likely due to body habitus) Respiratory: Chest non-tender, No respiratory distress, Wheezes (expiratory wheezes) - Results Results: Laboratory Results WBC 7.9 x10^3/uL (4.8-10.8) 01/26/23 04:56 RBC 4.42 10^6/uL (4.20-5.40) 01/26/23 04:56 Hgb 14.0 g/dL (12.0-16.0) 01/26/23 04:56 Hct 43.6 % (37.0-47.0) 01/26/23 04:56 MCV 98.6 fL (81.0-99.0) 01/26/23 04:56 MCH 31.7 pg (27.0-31.0) H 01/26/23 04:56 MCHC 32.1 g/dL (32.0-36.0) 01/26/23 04:56 RDW 12.3 % (12.0-15.0) 01/26/23 04:56 Plt Count 268 10^3/uL (130-450) 01/26/23 04:56 MPV 9.9 fL (7.9-10.8) 01/26/23 04:56 Neut # (Auto) 6.7 10^3/uL (1.5-6.6) H 01/26/23 04:56 Lymph # (Auto) 1.0 10^3/uL (1.5-3.5) L 01/26/23 04:56 [place] # (Auto) 0.1 10^3/uL (0.0-1.0) 01/26/23 04:56 Eos # (Auto) 0.0 10^3/uL (0.0-0.7) 01/26/23 04:56 Baso # (Auto) 0.0 10^3/uL (0.0-0.1) 01/26/23 04:56 Absolute Nucleated RBC 0.00 x10^3/uL 01/26/23 04:56 Nucleated RBC % 0.0 /100WBC 01/26/23 04:56 D-Dimer < 200.0 ng/mL (200.0-255.0) L 01/23/23 20:56 VBG pH 7.327 (7.31-7.41) 01/23/23 20:44 VBG pCO2 40.3 mmHg (41-51) L 01/23/23 20:44 VBG pO2 45.0 mmHg (25-47) 01/23/23 20:44 VBG HCO3 20.6 mmol/L (23-28) L 01/23/23 20:44 VBG Total CO2 21.9 mmol/L (24-29) L 01/23/23 20:44 VBG O2 Saturation 75.6 % (60-80) 01/23/23 20:44 VBG Base Excess -5.0 mmol/L (-2 - +2) L 01/23/23 20:44 Sodium 137 mmol/L (135-145) 01/26/23 04:56 Potassium 4.3 mmol/L (3.5-5.0) 01/26/23 04:56 Chloride 104 mmol/L (101-111) 01/26/23 04:56 Carbon Dioxide 25 mmol/L (21-32) 01/26/23 04:56 Anion Gap 8.0 (6-13) 01/26/23 04:56 BUN 14 mg/dL (6-20) 01/26/23 04:56 Creatinine 0.7 mg/dL (0.4-1.0) 01/26/23 04:56 Estimated GFR (MDRD) 88 (>89) L 01/26/23 04:56 Glucose 282 mg/dL (70-100) H 01/26/23 04:56 POC Whole Bld Glucose 289 mg/dL (70 - 100) H 01/26/23 07:27 Estimat Average Glucose 140 mg/dL (70-100) H 01/24/23 04:34 Hemoglobin A1c % 6.5 % (4.27-6.07) H 01/24/23 04:34 Calcium 9.7 mg/dL (8.5-10.3) 01/26/23 04:56 Phosphorus 3.1 mg/dL (2.5-4.6) 01/24/23 04:34 Magnesium 1.9 mg/dL (1.7-2.8) 01/24/23 04:34 Total Bilirubin 0.3 mg/dL (0.2-1.0) 01/23/23 20:26 AST 20 IU/L (10-42) 01/23/23 20:26 ALT 19 IU/L (10-60) 01/23/23 20:26 Alkaline Phosphatase 55 IU/L (42-121) 01/23/23 20:26 Troponin I High Sens < 2.3 ng/L (2.3-14.8) L 01/24/23 04:34 B-Natriuretic Peptide 79 pg/mL (5-100) 01/25/23 13:14 Total Protein 8.1 g/dL (6.7-8.2) 01/23/23 20:26 Albumin 4.3 g/dL (3.2-5.5) 01/23/23 20:26 Globulin 3.8 g/dL (2.1-4.2) 01/23/23 20:26 Albumin/Globulin Ratio 1.1 (1.0-2.2) 01/23/23 20:26 Lipase 36 U/L (22-51) 01/23/23 20:26 Procalcitonin < 0.05 ng/mL (<0.5) 01/24/23 04:34 Nasal Adenovirus (PCR) NOT DETECTED 01/23/23 20:26 Nasal B. parapertussis DNA (PCR) NOT DETECTED 01/23/23 20:26 Nasal Coronavir 229E PCR NOT DETECTED 01/23/23 20:26 Nasal Coronavir HKU1 PCR NOT DETECTED 01/23/23 20:26 Nasal Coronavir NL63 PCR NOT DETECTED 01/23/23 20:26 Nasal Coronavir OC43 PCR NOT DETECTED 01/23/23 20:26 Nasal Enterovir/Rhinovir PCR NOT DETECTED 01/23/23 20:26 Nasal Influenza B PCR NOT DETECTED 01/23/23 20:26 Nasal Influenza A PCR NOT DETECTED 01/23/23 20:26 Nasal Parainfluen 1 PCR NOT DETECTED 01/23/23 20:26 Nasal Parainfluen 2 PCR NOT DETECTED 01/23/23 20:26 Nasal Parainfluen 3 PCR DETECTED A 01/23/23 20:26 Nasal Parainfluen 4 PCR NOT DETECTED 01/23/23 20:26 Nasal RSV (PCR) NOT DETECTED 01/23/23 20:26 Nasal B.pertussis DNA PCR NOT DETECTED 01/23/23 20:26 Nasal C.pneumoniae (PCR) NOT DETECTED 01/23/23 20:26 Ayan Human Metapneumo PCR NOT DETECTED 01/23/23 20:26 Nasal M.pneumoniae (PCR) NOT DETECTED 01/23/23 20:26 Nasal SARS-CoV-2 (PCR) NOT DETECTED 01/23/23 20:26 Ethyl Alcohol 268.6 mg/dL 01/23/23 20:26 - Procedures Procedures: Procedures REPAIR ABDOMINAL WALL, OPEN APPROACH (08/16/16) ABX Reporting Has patient been on IV antibiotics over the past 48 hours?: Yes
[2023-01-26] MEDS ORDERED: INSULIN GLARGINE-YFGN 300 UNIT/3 ML PEN SUBQ ONE (11:32)
[2023-01-26] MEDS: cefTRIAXone 2 GM in SODIUM CHLORIDE 0.9% MINIBAG 100 ML IV SCH (20:11)
[2023-01-26] MEDS: SODIUM CHLORIDE FLUSH 0.9% 10 ML SYRINGE IVP PRN (20:11)
[2023-01-26] MEDS ORDERED: INSULIN GLARGINE-YFGN 300 UNIT/3 ML PEN SUBQ SCH (21:00)
[2023-01-26] MEDS: ATORVASTATIN 10 MG TABLET PO SCH (21:45)
[2023-01-26] MEDS: traZODone 50 MG TABLET PO PRN (21:46)
[2023-01-27] MEDS: chlordiazePOXIDE 25 MG CAPSULE PO SCH ×2 (01:40→09:00)
[2023-01-27] MEDS: SODIUM CHLORIDE FLUSH 0.9% 10 ML SYRINGE IVP SCH ×2 (01:41→09:02)
[2023-01-27] MEDS: methylPREDNISolone SUCCINATE 40 MG/ML VIAL IVP SCH (06:14)
[2023-01-27] MEDS: GABAPENTIN 300 MG CAPSULE PO SCH (06:15)
[2023-01-27] MEDS: HYDROcod/ACETAM 5/325 MG TABLET PO PRN (06:17)
[2023-01-27] MEDS: BUDESONIDE 0.5 MG/2 ML NEB INH SCH (06:38)
[2023-01-27] MEDS: IPRATROPIUM/ALBUTEROL 3 ML NEB INH SCH (06:38)
[2023-01-27] MEDS: LOSARTAN 50 MG TABLET PO SCH (09:00)
[2023-01-27] MEDS: CHOLECALCIFEROL 25 MCG TABLET PO SCH (09:00)
[2023-01-27] MEDS: LACTOBACILLUS RHAMNOSUS GG CAPSULE PO SCH ×2 (09:00→09:01)
[2023-01-27] MEDS: busPIRone 5 MG TABLET PO SCH (09:01)
[2023-01-27] MEDS: amLODIPine 5 MG TABLET PO SCH (09:01)
[2023-01-27] MEDS: FLUoxetine 10 MG CAPSULE PO SCH (09:01)
[2023-01-27] MEDS: MULTIVITAMIN TABLET PO SCH (09:02)
[2023-01-27] MEDS: HEPARIN 5,000 UNIT/ML VIAL SUBQ SCH (09:06)
[2023-01-27] MEDS: INSULIN LISPRO 300 UNIT/3 ML PEN SUBQ SCH ×2 (09:06→12:30)
[2023-01-27] MEDS: guaiFENesin 600 MG TABLET PO SCH (09:07)
[2023-01-27] MEDS: LORATADINE 10 MG TABLET PO SCH (09:07)
[2023-01-27 11:58] VITALS: BP 129/64
--- NOTE | 2023-01-27 12:15 | Discharge Plan ---
Discharge Plan Problem Reviewed?: Yes Disposition: Home, Self Care Condition: Fair Prescriptions: Fluticasone/Salmeterol [Advair Hfa 115-21 Mcg Inhaler] 2 puffs IH BID #1 ea Amox/Clav 875/125 [Augmentin 875/125 Tab] 1 tablet PO Q12H 6 Days #12 tablet Lactobacillus Rhamnosus GG [Culturelle] 1 cap PO DAILY #6 cap methylPREDNISolone [Medrol Dose Pack] 1 each PO .PACKAGEINSTRUCTIONS 6 Days #1 each guaiFENesin [Mucinex] 600 mg PO BID #12 tab HYDROcod/ACETAM 5/325 [Rudyard 5/325] 1 tab PO Q6H PRN #5 tab PRN Reason: Severe Pain (Level 7-10) Albuterol Sulf [Ventolin Hfa Inhaler] 2 puffs INH Q6H PRN #1 each PRN Reason: Shortness Of Air/Wheezing Diet: Diabetic Activity Restrictions: Activity as Tolerated Shower Restrictions: No Driving Restrictions: Yes (No driving a vehicle if you are intoxicated) Instruction Topics: Diabetes Alcohol Consumption, Triggers Asthma, Inhaler Care Health Concerns: You were hospitalized because you had respiratory distress with severely low oxygen levels and a pneumonia and an asthma exacerbation. You also were admitted with alcohol intoxication. You were given medications to prevent alcohol withdrawal DTs. You needed supplemental oxygen. Today you were tested to see if you need home oxygen and you do not. You are being discharged home today and advised to finish a course of antibiotics for the pneumonia, stop using alcohol in excess, and several prescription inhalers for asthma treatment have been ordered for you. Also a prescription for Mucinex to continue to cough up your phlegm was prescribed, and a Medrol Dose-Tobias, and a probiotic, and several tablets of Rudyard for your chronic low back pain, were ordered. All new prescriptions were electronically sent to your [facility] in [place]. You may resume all your other pre-hospital medications and all your usual diabetic medications and you are reminded to eat a better low sugar, low carb diet. Please have an office visit with your Primary Care Provider, Marycruz Adkins NP, in the next 1 to 2 weeks, for a hospital follow-up visit. Plan of Treatment: As above. Care Goals: Improvement in symptoms and stabilization are the goals. Assessment: The patient understands and is agreeable with the plan. Additional Instructions or Follow Up instructions: If you have new or worsening symptoms, call your primary care provider for advice, or come to the ER. No Smoking: If you smoke, Please STOP! Call for help. Follow-up with: Marycruz Adkins ARNP [Credentialed Staff Provider] -
--- NOTE | 2023-01-27 12:50 | DISCHARGE SUMMARY ---
Discharge Summary Admit Date: 01/24/23 Discharge Date: 01/27/23 Discharging Provider: Dr. Laureen Gold Primary Care Provider: MATTHEW Craig Condition at Discharge: Good Discharge Disposition: 01 Home, Self Care - DIAGNOSES Admission Diagnoses: (1) Acute hypoxemic respiratory failure (2) Atypical pneumonia (3) Parainfluenza Virus Infection (4) Asthma exacerbation (5) Alcoholic intoxication (6) Diabetes mellitus type 2 in obesity (7) Hypertension (8) Depression (9) Chronic low back pain - HPI History of Present Illness: Patient is 53-year-old female with a history of asthma, alcohol abuse, and type 2 diabetes who presented to the emergency department on 01/23 with chief complaint of shortness of breath, chest pain, and cough for 2-3 weeks. She was brought it by EMS, and per EMS received 125 mg Solu-Medrol prior to arrival. She tried using her albuterol inhaler multiple times at home with minimal relief. Reports multiple family members are currently suffering from upper respiratory tract style symptoms. Her cough was so frequent that she is having difficulty sleeping. She also has tried over the counter cough syrup and cold medications without improvement. She also reports that she drinks regularly greater than 1 pint vodka daily. Denies fever but does report some nausea and vomiting. States that she is urinating frequently as well. Patient did notably have an elevation in ethanol greater than 200. This was consistent with her stated history of drinking a pint of vodka prior to coming to the emergency department. She denied history of seizure, delirium or hallucinations associated with alcohol withdrawal in the past. Patient had persistent hypoxia in the emergency department with oxygen sat urations in the mid to high 80s. She was placed on supplemental oxygen. At baseline she did not use supplemental oxygen. Labs revealed no leukocytosis, bandemia and a reassuring blood gas. Patient ad ditionally had a negative troponin and negative D-dimer in the emergency department and an EKG that was nonischemic. Chest x-ray demonstrated findings consistent with atypical pneumonia. Respiratory viral panel positive for parainfluenza virus. Given findings, she was started on azithromycin in the emergency department. Patient demonstrated persistent oxygen demand with desaturations into the 80s at rest off O2. She was dependent on 2 to 3 L nasal cannula. She was admitted on 01/24, still requiring oxygen 2L/min. - HOSPITAL COURSE Hospital Course: (1) Acute hypoxemic respiratory failure This was likely secondary to parainfluenza, pneumonia and asthma exacerbation. On arrival to the ER on 01/23, her O2 saturation was 88% on room air. Consequently, she was placed on 2L-3L/min of oxygen throughout her hospital course. On 01/27, an oximetry walk test was performed. On room air at rest, her O2 sat was 96%. On room air with ambulation, it was 93%. Therefore, I did not discharge her with home oxygen. (2) Atypical pneumonia The patient's history, symptoms, and imaging support the diagnosis of atypical pneumonia. Because the patient is an alcoholic, this also places her at an increased risk for strep pneumonia. Because of this, empiric ceftriaxone IV and azithromycin IV were started on 01/24. Chest x-ray from 01/25 showed possible enlarged cardiac contour, so I ordered a BNP on 01/25 which was within normal ran [employer]. Her last echo performed in 2016 showed EF 55-60% with no valvular disease. She received 3 days of IV azithromycin and 4 days of IV ceftriaxone. I sent her home with 6 days of Augmentin to finish her treatment course and also guaifenesin for cough. I also prescribed a probiotic. (3) Parainfluenza Virus Infection The patient tested positive for parainfluenza 3. This likely caused her pneumonia and asthma exacerbation. She did not have a fever during her hospital course. (4) Asthma exacerbation Patient has a history of asthma. This exacerbation is likely secondary to pneumonia and parainfluenza. Because of her worsening SOB on 01/25, I added Solu- medrol. On discharge, I prescribed Advair inhaler, medrol dose pack, and albuterol inhaler. (5) Alcoholic intoxication On admission, patient was found to have an ethyl alcohol level of 268.6. She admitted to drinking at least a pint of Vodka daily. She was counseled to stop alcohol abuse and given an AA book. Librium was given for alcohol withdrawal, bu t I had to increase the dose twice because she did not feel its effects. On 01/26, she still reported feeling diaphoretic, but I suspected this was caused by the very hot heating pad she is lying on for her lower back pain. (6) Diabetes mellitus type 2 in obesity A1c came back at 6.5%, indicating type 2 diabetes. She is on a diabetic diet, but, throughout her stay, her mom brought her pie and she was on steroids that increased her blood sugar. Nutrition met with her and discussed dietary modifications in diabetes management. Blood sugar was managed with sliding scale insulin and glipizide. On discharge, she was told to resume her 3 home medications. (7) Hypertension Patient has a history of hypertension with no renal failure noted. On admission, her bp was 139/55. Her home medication losartan was resumed. Her latest reading on 01/27 was 129/64. (8) Depression Her home antidepressants fluoxetine and buspirone were continued (9) Chronic low back pain Patient has chronic low back pain managed with gabapentin 900 mg TID at home. On 01/24, patient requested that we restart her gabapentin because she had pain from lying in bed. She also requested Orovada for pain relief. On 01/26, she realized that the sweatiness she had been experiencing was probably from the heating pad that she was using for back pain. Per her request, I discharged her with 5 doses of Orovada for pain relief - ALLERGIES Allergies/Adverse Reactions: Allergies Allergy/AdvReac Type Severity Reaction Status Date / Time No Known Drug Allergies Allergy Verified 01/23/23 20:28 - MEDICATIONS Home Medications: Ambulatory Orders Medication Instructions Recorded Confirmed Losartan [Cozaar] 100 mg PO DAILY 12/24/15 01/24/23 Metformin HCl 1,000 mg PO BIDWM 12/24/15 01/24/23 Fluoxetine HCl 60 mg PO DAILY 07/04/17 01/24/23 traZODone [Desyrel] 200 mg PO QPM 07/04/17 01/24/23 Atorvastatin [Lipitor] 10 mg PO QPM 11/21/19 01/24/23 Gabapentin 900 mg PO 1400 PRN 11/21/19 01/24/23 Gabapentin 900 mg PO BID 11/21/19 01/24/23 Ibuprofen [Motrin] 800 mg PO DAILY PRN 11/21/19 01/24/23 Dapagliflozin Propanediol [Farxiga] 10 mg PO DAILY 11/25/21 01/24/23 Acetaminophen [Tylenol] 1,000 mg PO BID PRN 01/24/23 01/24/23 Amlodipine Besylate [Norvasc] 10 mg PO DAILY 01/24/23 01/24/23 Buspirone HCl 15 mg PO BID 01/24/23 01/24/23 Cholecalciferol [Vitamin D3] 25 mcg PO DAILY 01/24/23 01/24/23 Cyclobenzaprine HCl 5 mg PO Q8H PRN 01/24/23 01/24/23 Glipizide [Glipizide Xl] 10 mg PO DAILY 01/24/23 01/24/23 Loratadine [Claritin] 10 mg PO DAILY 01/24/23 01/24/23 Multivitamin 1 tab PO DAILY 01/24/23 01/24/23 buPROPion HCL [Bupropion HCl] 150 mg PO DAILY 01/24/23 01/24/23 Albuterol Sulf [Ventolin Hfa 2 puffs INH Q6H PRN #1 each 01/27/23 Inhaler] Amox/Clav 875/125 [Augmentin 1 tablet PO Q12H 6 Days #12 tablet 01/27/23 875/125 Tab] Fluticasone/Salmeterol [Advair Hfa 2 puffs IH BID #1 ea 01/27/23 115-21 Mcg Inhaler] HYDROcod/ACETAM 5/325 [Orovada 5/325] 1 tab PO Q6H PRN #5 tab 01/27/23 Lactobacillus Rhamnosus GG 1 cap PO DAILY #6 cap 01/27/23 [Culturelle] guaiFENesin [Mucinex] 600 mg PO BID #12 tab 01/27/23 methylPREDNISolone [Medrol Dose 1 each PO .PACKAGEINSTRUCTIONS 6 01/27/23 Pack] Days #1 each - PHYSICAL EXAM AT DISCHARGE General Appearance: positive: No acute distress, Alert, Other (Asked patient to sit up for lung exam, but she just pressed the buttons to raise the head of bed and lower her legs. Minimal attempt to sit up and did not engage her core) Eyes Bilateral: positive: Normal inspection, EOMI ENT: positive: ENT inspection nml, Pharynx nml, No signs of dehydration Neck: positive: Nml inspection, Thyroid nml, No JVD, Trachea midline. negative: Stiff neck, Tracheal deviation Respiratory: positive: Chest non-tender, No respiratory distress, Breath sounds nml Cardiovascular: positive: Regular rate & rhythm, No murmur, No gallop. negative: Systolic murmur, Diastolic murmur Abdomen: positive: Other (class III obesity) Skin: positive: Color nml, No rash, Warm, Dry. negative: Diaphoresis, Pallor, Skin rash Extremities: positive: Non-tender, Nml appearance, No pedal edema Neurologic/Psychiatric: positive: Oriented x3, CN's nml (2-12), Mood/affect nml - LABS Result Diagrams: 01/26/23 04:56 01/26/23 04:56 - DIAGNOSTIC IMAGING Diagnostic Imaging Results Comments: Chest X-ray from 01/24 shows: Bilateral scattered indistinct opacities are nonspecific any may reflect atypical pneumonia. Heart size was normal. Chest X-ray from 01/25 shows: Slightly larger cardiac contour, possible related to technique. Mildly prominent interstitium may represent edema or atypical infection. There was also a component of vascular crowding given low lung volumes - FOLLOW UP Follow Up: Discussed with patient that she should follow up with her primary care provider within the next few weeks. She was also provided resources to help her stop drinking. I informed her of return precautions, including worsening SOB, cough, and fever. - TIME SPENT Time Spent in Discharge (Minutes): 45
== END 2023-01-27 12:00 | disposition home or self-care (01) | DRG 189 ==
LOC: EDUNIT# → ED 20:12 → MS3 01-24 01:59
PROVIDERS: ADMIT Internal Medicine; ATTEND Internal Medicine
DX: J96.01 Acute respiratory failure with hypoxia (principal); J10.00 Influenza due to other identified influenza virus with unspecified type of pneumonia; J45.901 Unspecified asthma with (acute) exacerbation; F10.239 Alcohol dependence with withdrawal, unspecified; Z68.41 Body mass index [BMI] 40.0-44.9, adult; F10.229 Alcohol dependence with intoxication, unspecified; Y90.8 Blood alcohol level of 240 mg/100 ml or more; E11.65 Type 2 diabetes mellitus with hyperglycemia; F32.A Depression, unspecified; M54.50 Low back pain, unspecified; G89.29 Other chronic pain; E66.01 Morbid (severe) obesity due to excess calories; I25.2 Old myocardial infarction; E11.42 Type 2 diabetes mellitus with diabetic polyneuropathy; Z87.891 Personal history of nicotine dependence; I10 Essential (primary) hypertension; F32.9 Major depressive disorder, single episode, unspecified; F41.9 Anxiety disorder, unspecified; Z20.822 Contact with and (suspected) exposure to COVID-19
CPT/HCPCS: 36415; 71045; 71046; 80048; 80053; 80320; 82803; 83036; 83690; 83735; 83880; 84100; 84145; 84484; 85025; 85027; 85379; 87040; 87205; 87633; 93005; 94640; 94761; 99285; A9270; J1815; J7626; J8499; 87070

== ENCOUNTER 2023-01-29 15:18 | Outpatient (CLI) | payer MEDICAID | END 2023-01-29 23:59 | disposition critical access hospital (66) | LOC: EMS 15:18 | DX: R06.03 Acute respiratory distress (principal); J18.9 Pneumonia, unspecified organism | CPT/HCPCS: A0425; A0427; A0999 ==

== ENCOUNTER 2023-01-29 15:55 | Emergency (ER) | payer MEDICAID ==
[2023-01-29] MEDS ORDERED: ALBUTEROL NEB 2.5 MG/3 ML INH STA (16:01)
[2023-01-29 16:14] LABS: BASOPHILS % (AUTO) 0.2 %; HCT - HEMATOCRIT 44.7 % (37.0-47.0); LYMPHOCYTES # (AUTO) 1.1 10^3/uL (1.5-3.5); LYMPHOCYTES % (AUTO) 12.8 %; MEAN CORPUSCULAR HEMOGLOBIN 31.9 pg (27.0-31.0); MEAN CORPUSCULAR HGB CONC 31.3 g/dL (32.0-36.0); MEAN CORPUSCULAR VOLUME 101.8 fL (81.0-99.0); MEAN PLATELET VOLUME 9.9 fL (7.9-10.8); MONOCYTES # (AUTO) 0.3 10^3/uL (0.0-1.0); MONOCYTES % (AUTO) 3.2 %; NEUTROPHILS # (AUTO) 7.2 10^3/uL (1.5-6.6); NEUTROPHILS % (AUTO) 82.3 %; PLT - PLATELET COUNT 303 10^3/uL (130-450); RED BLOOD COUNT 4.39 10^6/uL (4.20-5.40); RED CELL DISTRIBUTION WIDTH 13.2 % (12.0-15.0); WHITE BLOOD COUNT 8.7 x10^3/uL (4.8-10.8)
[2023-01-29 16:16] LABS: VBG BASE EXCESS -10.8 mmol/L (-2 - +2); VBG HCO3 16.2 mmol/L (23-28); VBG OXYGEN SATURATION 80.5 % (60-80); VBG PCO2 40.2 mmHg (41-51); VBG PH 7.224 (7.31-7.41); VBG PO2 52.2 mmHg (25-47); VBG TOTAL CO2 17.5 mmol/L (24-29)
--- NOTE | 2023-01-29 16:18 | ED Physician Documentation ---
PD HPI DYSPNEA - Stated complaint Stated Complaint: SOA - Chief complaint Chief Complaint: Resp - History obtained from History obtained from: Patient, EMS - History of Present Illness Timing - onset: How many days ago (2) Timing - onset during: Rest Timing - duration: Days (2) Timing - details: Gradual onset Pain level max: 0 Pain level now: 0 Improved by: O2, Inhaler/neb Worsened by: Exertion, Coughing Associated symptoms: Cough, Wheezing. No: Fever, Hemoptysis, Chest pain / discomfort, Palpitations, Diaphoresis, Bilateral edema, Unilateral edema - Additional information Additional information: 53 year old female recently admitted for hypoxia and resp failure 2/2 pneumonia and parainfluenza 3. Patient has a history of alcoholism, diabetes, COPD. She does not use oxygen at home. No fevers. No chills. Has had continued coughing. She states she is taking her medications as prescribed. She had increased work of breathing at home today and called 911. EMS states that when they arrived they found her only able to speak in approximately 1 word sentences at a time. She received 125 mg of Solu-Medrol and a DuoNeb on route with improvement in her work of breathing. She is now audibly wheezing. Review of Systems Constitutional: denies: Fever, Chills Ears: denies: Ear pain Nose: reports: Congestion Throat: denies: Sore throat Cardiac: denies: Chest pain / pressure Respiratory: reports: Dyspnea, Cough, Wheezing. 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: Other : Frequency, Incontinence, Nocturia HEENT: Chronic sinusitis Psych: Depression, Anxiety, Other Musculoskeletal: Chronic back pain, Fatigue Derm: None - Past Surgical History Past Surgical History: Yes /PROGRAM OR PROJECT ADMINISTRATOR: Tubal ligation Cardiovascular: Cardiac catheterization HEENT: Rhinoplasty - Present Medications Home Medications: Ambulatory Orders Medication Instructions Recorded Confirmed Losartan [Cozaar] 100 mg PO DAILY 12/24/15 01/24/23 Metformin HCl 1,000 mg PO BIDWM 12/24/15 01/24/23 Fluoxetine HCl 60 mg PO DAILY 07/04/17 01/24/23 traZODone [Desyrel] 200 mg PO QPM 07/04/17 01/24/23 Atorvastatin [Lipitor] 10 mg PO QPM 11/21/19 01/24/23 Gabapentin 900 mg PO 1400 PRN 11/21/19 01/24/23 Gabapentin 900 mg PO BID 11/21/19 01/24/23 Ibuprofen [Motrin] 800 mg PO DAILY PRN 11/21/19 01/24/23 Dapagliflozin Propanediol [Farxiga] 10 mg PO DAILY 11/25/21 01/24/23 Acetaminophen [Tylenol] 1,000 mg PO BID PRN 01/24/23 01/24/23 Amlodipine Besylate [Norvasc] 10 mg PO DAILY 01/24/23 01/24/23 Buspirone HCl 15 mg PO BID 01/24/23 01/24/23 Cholecalciferol [Vitamin D3] 25 mcg PO DAILY 01/24/23 01/24/23 Cyclobenzaprine HCl 5 mg PO Q8H PRN 01/24/23 01/24/23 Glipizide [Glipizide Xl] 10 mg PO DAILY 01/24/23 01/24/23 Loratadine [Claritin] 10 mg PO DAILY 01/24/23 01/24/23 Multivitamin 1 tab PO DAILY 01/24/23 01/24/23 buPROPion HCL [Bupropion HCl] 150 mg PO DAILY 01/24/23 01/24/23 Albuterol Sulf [Ventolin Hfa 2 puffs INH Q6H PRN #1 each 01/27/23 Inhaler] Amox/Clav 875/125 [Augmentin 1 tablet PO Q12H 6 Days #12 tablet 01/27/23 875/125 Tab] Fluticasone/Salmeterol [Advair Hfa 2 puffs IH BID #1 ea 01/27/23 115-21 Mcg Inhaler] HYDROcod/ACETAM 5/325 [[place] 5/325] 1 tab PO Q6H PRN #5 tab 01/27/23 Lactobacillus Rhamnosus GG 1 cap PO DAILY #6 cap 01/27/23 [Culturelle] guaiFENesin [Mucinex] 600 mg PO BID #12 tab 01/27/23 methylPREDNISolone [Medrol Dose 1 each PO .PACKAGEINSTRUCTIONS 6 01/27/23 Pack] Days #1 each - Allergies Allergies/Adverse Reactions: Allergies Allergy/AdvReac Type Severity Reaction Status Date / Time No Known Drug Allergies Allergy Verified 01/23/23 20:28 - Social History Does the pt smoke?: No Smoking Status: Current some day smoker Does the pt drink ETOH?: Yes Does the pt have substance abuse?: Yes - Immunizations Immunizations are current?: Yes - POLST Patient has POLST: No POLST Status: Full Code PD ED PE NORMAL - Vitals Vital signs reviewed: Yes - General General: Alert and oriented X 3, No acute distress - HEENT HEENT: Moist mucous membranes - Neck Neck: Supple, no meningeal sign - Cardiac Cardiac: RRR - Respiratory Respiratory: Other (audible wheezing B with diminished breath sounds B) - Abdomen Abdomen: Soft, Non tender, Non distended - Derm Derm: Warm and dry - Extremities Extremities: No calf tenderness / cord - Neuro Neuro: Alert and oriented X 3 - Psych Psych: Normal mood, Normal affect Results - Vitals Vitals: Vital Signs - 24 hr 01/29/23 01/29/23 01/29/23 16:03 16:09 16:18 Temperature 36.8 C Heart Rate 108 H 103 H 107 H Respiratory 26 H 24 18 Rate Blood Pressure 165/77 H O2 Saturation 93 98 01/29/23 16:45 Temperature Heart Rate Respiratory Rate Blood Pressure 163/83 H O2 Saturation Oxygen O2 Source Room air - Labs Labs: Laboratory Tests 01/29/23 01/29/23 01/29/23 16:09 16:09 16:09 WBC 8.7 RBC 4.39 Hgb 14.0 Hct 44.7 MCV 101.8 H MCH 31.9 H MCHC 31.3 L RDW 13.2 Plt Count 303 MPV 9.9 Neut # (Auto) 7.2 H Lymph # (Auto) 1.1 L [place] # (Auto) 0.3 Eos # (Auto) 0.0 Baso # (Auto) 0.0 Absolute Nucleated RBC 0.00 Nucleated RBC % 0.0 VBG pH 7.224 L VBG pCO2 40.2 L VBG pO2 52.2 H VBG HCO3 16.2 L VBG Total CO2 17.5 L VBG O2 Saturation 80.5 H VBG Base Excess -10.8 L Sodium 139 Potassium 4.0 Chloride 102 Carbon Dioxide 18 L Anion Gap 19.0 H BUN 18 Creatinine 0.8 Estimated GFR (MDRD) 75 L Glucose 451 H Calcium 8.5 Total Bilirubin 0.3 AST 19 ALT 27 Alkaline Phosphatase 66 Total Protein 7.9 Albumin 4.2 Globulin 3.7 Albumin/Globulin Ratio 1.1 Ethyl Alcohol Serum Ketones NEGATIVE 01/29/23 16:09 WBC RBC Hgb Hct MCV MCH MCHC RDW Plt Count MPV Neut # (Auto) Lymph # (Auto) [place] # (Auto) Eos # (Auto) Baso # (Auto) Absolute Nucleated RBC Nucleated RBC % VBG pH VBG pCO2 VBG pO2 VBG HCO3 VBG Total CO2 VBG O2 Saturation VBG Base Excess Sodium Potassium Chloride Carbon Dioxide Anion Gap BUN Creatinine Estimated GFR (MDRD) Glucose Calcium Total Bilirubin AST ALT Alkaline Phosphatase Total Protein Albumin Globulin Albumin/Globulin Ratio Ethyl Alcohol 196.2 Serum Ketones - Rads (name of study) cxr Relevant Findings:: Final report received, See rad report PD Medical Decision Making - ED course Complexity details: reviewed results, re-evaluated patient, considered differential, d/w patient ED course: Patient felt better after nebulizer treatments. She stated she felt like she was going to withdraw from alcohol, Ativan was ordered. Prior to this being given, the patient pulled out her IV and walked out of the emergency department. She passed by the nurses station and stated that she did not want to be in the hospital, that she was calling a cab to take her home. Her speech is clear, her gait is steady. She is alert and oriented x3. I did stop her in the hallway and try to convince her to stay for further treatment and care, patient adamantly refuses this. Although she has a elevated alcohol level, she is a chronic alcoholic and is alert, oriented and shows no clinical evidence of intoxication at this time. She refused to sign AGAINST MEDICAL ADVICE. She did state understanding of the risks of leaving at this time. She states she will return if she worsens. This document was made in part using voice recognition software. While efforts are made to proofread this document, sound alike and grammatical errors may occur. IMPRESSION: 1.Persistent interstitial thickening may reflect interstitial pneumonia, bronchitis, interstitial lung disease, or sequela of vascular edema. 2.Unchanged mild cardiomegaly Departure - Departure Disposition: ED [facility] Clinical Impression: Atypical pneumonia Alcoholic intoxication Qualifiers: Complication of substance-induced condition: uncomplicated Qualified Code(s): F10.920 - Alcohol use, unspecified with intoxication, uncomplicated Asthma exacerbation Qualifiers: Asthma severity: unspecified severity Asthma persistence: unspecified Qualified Code(s): J45.901 - Unspecified asthma with (acute) exacerbation Condition: Stable Discharge Date/Time: 01/29/23 18:07
[2023-01-29] MEDS ORDERED: SODIUM CHLORIDE 0.9% 1,000 ML IV STA ×2 (16:22)
[2023-01-29 16:26] LABS: KETONES, SERUM (ACETEST) NEGATIVE (NEGATIVE)
--- NOTE | 2023-01-29 16:27 | XRAY Report ---
PROCEDURE: Chest 1 View X-Ray INDICATIONS: dyspnea TECHNIQUE: One view of the chest was acquired. COMPARISON: January 25, 2023, January 23, 2023, September 09, 2022 FINDINGS: Surgical changes and devices: None. Lungs and pleura: Persistent interstitial thickening and vascular crowding. Mediastinum: Mediastinal contours appear normal. Heart size is slightly enlarged, unchanged. Bones and chest wall: No suspicious bony lesions. Overlying soft tissues appear unremarkable. IMPRESSION: 1.Persistent interstitial thickening may reflect interstitial pneumonia, bronchitis, interstitial felicia g disease, or sequela of vascular edema. 2.Unchanged mild cardiomegaly Reviewed by: Huan Hidalgo MD on 01/29/2023 3:26 PM [facility] Approved by: Huan Hidalgo MD on 01/29/2023 3:26 PM AKDT Station ID: [id number]
[2023-01-29 16:29] LABS: ALBUMIN 4.2 g/dL (3.2-5.5); ALBUMIN/GLOBULIN RATIO 1.1 (1.0-2.2); ALKALINE PHOSPHATASE 66 IU/L (42-121); ALT ALANINE AMINOTRANSFERASE 27 IU/L (10-60); AST ASPARTATE AMINOTRANSFERASE 19 IU/L (10-42); BILIRUBIN,TOTAL 0.3 mg/dL (0.2-1.0); BUN - BLOOD UREA NITROGEN 18 mg/dL (6-20); CALCIUM 8.5 mg/dL (8.5-10.3); CARBON DIOXIDE - CO2 18 mmol/L (21-32); CHLORIDE 102 mmol/L (101-111); CREATININE 0.8 mg/dL (0.4-1.0); GFR - MDRD 75 (>89); GLUCOSE 451 mg/dL (70-100); SODIUM 139 mmol/L (135-145); TOTAL PROTEIN 7.9 g/dL (6.7-8.2)
[2023-01-29] MEDS ORDERED: BENZONATATE 100 MG CAPSULE PO STA (16:30)
[2023-01-29 16:46] VITALS: BP 163/83
--- OUTSIDE RECORDS SUMMARY | 2023-01-29 16:51 | EXTERNAL MEDICAL SUMMARY RPT | Continuity of Care Document ---
:1970 Author Organization [facility] Address [address] [place] [address] Phone Care Team Providers Name Role Phone Unavailable Unavailable Unavailable Marycruz Nova Unavailable Unavailable Allergies No information. Encounters No information. Functional Status No information. Immunizations No information. Medications date description facility 2023-01-10 00:00 PREDNISONE [facility] Problems date description facility 2022-11-01 00:00 Gastroesophageal reflux disease [facility] 2022-11-01 00:00 Hypertriglyceridemia [facility] Pr [facility] 2022-11-01 00:00 Depressive disorder, not elsewhere [facility] Primary classified [facility] 2022-11-01 00:00 Depressive disorder [facility] 2022-11-01 00:00 Hypertensive disorder [facility] 2022-11-01 00:00 Unspecified essential hypertension [facility] 2022-11-01 00:00 Obesity [facility] Prim [...] [facility] 2023-01-10 00:00 Depressive disorder [facility]na jeremy [...] & Anc[facility] 2023-01-11 00:00 Hypertriglyceridemia [facility] Pr imary [...] vices [facility] 2023-01-11 00:00 Obesity [facility] 2023-01-11 00:00 Esophageal reflux [facility] 2023-01-11 00:00 Obesity, unspecified [facility] 2023-01-11 00:00 Pure hyperglyceridemia [facility] 2023-01-11 00:00 Major depressive disorder, single [facility] Primary episode, unspecified [facility] 2023-01-11 00:00 Essential (primary) hypertension [facility] 2023-01-11 00:00 Gastro-esophageal reflux disease [facility] Primary without esophagitis Care & Ancillary [facility] Procedures date description facility 2023-01-10 00:00 Visit Code Hold [facility] Results/Labs No information. Social History No information. Vital Signs date measurement value units 2023-01-10 00:00 BMI 44.93 kg/m2 2023-01-10 00:00 BP_diastolic 77 mmHg 2023-01-10 00:00 BP_systolic 181 mmHg 2023-01-10 00:00 heart_rate 60 /min 2023-01-10 00:00 height_metric 165.1 cm 2023-01-10 00:00 height_standard 65 in 2023-01-10 00:00 respiration_rate 17 /min 2023-01-10 00:00 temperature_metric 36.44 C 2023-01-10 00:00 temperature_standard 97.6 F 2023-01-10 00:00 weight_metric 122.02 kg 2023-01-10 00:00 weight_standard 269 lb
[2023-01-29] MEDS ORDERED: LORazepam 2 MG/ML VIAL IVP STA (17:45)
== END 2023-01-29 18:07 | disposition left against medical advice (07) ==
LOC: EDUNIT# → ED 15:55
DX: J45.901 Unspecified asthma with (acute) exacerbation (principal); F10.920 Alcohol use, unspecified with intoxication, uncomplicated; Y90.6 Blood alcohol level of 120-199 mg/100 ml; J18.8 Other pneumonia, unspecified organism; E11.42 Type 2 diabetes mellitus with diabetic polyneuropathy; Z79.84 Long term (current) use of oral hypoglycemic drugs; F17.200 Nicotine dependence, unspecified, uncomplicated
CPT/HCPCS: 36415; 71045; 80053; 80320; 82009; 82803; 85025; 94640; 94664; 99283; 99284; A9270

== ENCOUNTER 2023-02-22 07:05 | Outpatient (CLI) | payer MEDICAID ==
[2023-02-22 15:05] LABS: BUN - BLOOD UREA NITROGEN 18 mg/dL (6-20); CALCIUM 9.1 mg/dL (8.5-10.3); CARBON DIOXIDE - CO2 26 mmol/L (21-32); CHLORIDE 107 mmol/L (101-111); CHOL/HDL RATIO 3.5 (<4.4); CHOLESTEROL 179 mg/dL; CREATININE 0.7 mg/dL (0.4-1.0); GFR - MDRD 88 (>89); GLUCOSE 143 mg/dL (70-100); HDL CHOLESTEROL 51 mg/dL; LDL CHOLESTEROL,CALCULATED 97 mg/dL; LDL/HDL RATIO 1.9 (<4.4); POTASSIUM 4.8 mmol/L (3.5-5.0); SODIUM 140 mmol/L (135-145); TRIGLYCERIDES 155 mg/dL; VLDL CHOLESTEROL 31 mg/dL
[2023-02-22 15:30] LABS: CREATININE,URINE 117.7 mg/dL; MICROALBUM/CREATININE RATIO,UR 7.6 ug/mg (<30.0); MICROALBUMIN,URINE 0.9 mg/dL (0-300.0)
[2023-02-22 17:44] LABS: CHLAMYDIA TRACHOMATIS DNA NEGATIVE (NEGATIVE); NEISSERIA GONORRHOEAE DNA NEGATIVE (NEGATIVE); TRICHOMONAS VAGINALIS DNA NEGATIVE (NEGATIVE)
[2023-02-22 21:16] LABS: ESTIMATED AVERAGE GLUCOSE 148 mg/dL (70-100); HEMOGLOBIN A1c% 6.8 % (4.27-6.07)
== END 2023-02-22 07:06 | disposition home or self-care (01) ==
LOC: LAB.S 07:05
PROVIDERS: ATTEND Nurse Practitioner
DX: E11.65 Type 2 diabetes mellitus with hyperglycemia (principal); E78.2 Mixed hyperlipidemia; Z11.3 Encounter for screening for infections with a predominantly sexual mode of transmission
CPT/HCPCS: 36415; 80048; 80061; 82043; 82570; 83036; 83721; 87491; 87591; 87661

== ENCOUNTER 2023-03-20 08:56 | Emergency (ER) | payer MEDICAID ==
--- OUTSIDE RECORDS SUMMARY | 2023-03-20 09:16 | EXTERNAL MEDICAL SUMMARY RPT | Continuity of Care Document ---
Author Name Unknown Address [address] [place] [address] Phone Organization [facility] Address [address] [place] [address] Phone Care Team Providers Care Environmental Consultant Name Role Phone Unavailable Unavailable Unavailable Marycruz Nova Unavailable Unavailable Medications date description facility 2023-01-10 00:00 [facility] Problems date description facility 2023-01-10 00:00 Gastroesophageal reflux disease [facility] 2023-01-10 00:00 Hypertriglyceridemia [facility] 2023-01-10 00:00 Depressive disorder, not elsewhere classified [facility] 2023-01-10 00:00 Depressive disorder [facility] 2023-01-10 00:00 Hypertensive disorder [facility] 2023-01-10 00:00 Unspecified essential hypertens ion [facility] 2023-01-10 00:00 Obesity [facility] 2023-01-10 00:00 Esophageal reflux [facility] 2023-01-10 00:00 Obesity, unspecified [facility] 2023-01-10 00:00 Pure hyperglyceridemia [facility] 2023-01-10 00:00 Major depressive dis order, single episode, unspecified [facility] 2023-01-10 00:00 Essential (primary) hypertensio n [facility] 2023-01-10 00:00 Gastro-esophageal re flux disease without esophagitis [facility] 2023-01-11 00:00 Gastroesophageal reflux disease [facility] 2023-01-11 00:00 Hypertriglyceridemia [facility] 2023-01-11 00:00 Depressive disorder, not elsewhere classified [facility] 2023-01-11 00:00 Depressive disorder [facility] 2023-01-11 00:00 [facility]pertensive disorder [facility] [place] 2023-01-11 00:00 Unspecified essential hypertens ion [facility] 2023-01-11 00:00 Obesity [facility] 2023-01-11 00:00 Esophageal reflux [facility] 2023-01-11 00:00 Obesity, unspecified [facility] 2023-01-11 00:00 Pure hyperglyceridemia [facility] 2023-01-11 00:00 Major depressive dis order, single episode, unspecified [facility] 2023-01-11 00:00 Essential (primary) hypertensio n [facility] 2023-01-11 00:00 Gastro-esophageal re flux disease without esophagitis [facility] Procedures date description facility 2023-01-10 00:00 Visit Code Hold [facility] Vital Signs date measurement value units 2023-01-10 [...]
[2023-03-20] MEDS ORDERED: SODIUM CHLORIDE 0.9% 1,000 ML IV STA (09:50)
[2023-03-20] MEDS ORDERED: VANCOMYCIN INJ 2.25 GM in SODIUM CHLORIDE 0.9% 500 ML IV STA (09:50)
[2023-03-20] MEDS ORDERED: KETOROLAC 30 MG/ML VIAL IVP STA (09:50)
[2023-03-20] MEDS ORDERED: HYDROmorphone 1 MG/ML CARPUJECT IVP STA ×2 (09:50→11:59)
[2023-03-20 10:24] LABS: BASOPHILS % (AUTO) 0.1 %; EOSINOPHILS # (AUTO) 0.2 10^3/uL (0.0-0.7); EOSINOPHILS % (AUTO) 1.9 %; HCT - HEMATOCRIT 40.7 % (37.0-47.0); HGB - HEMOGLOBIN 13.4 g/dL (12.0-16.0); LYMPHOCYTES # (AUTO) 1.8 10^3/uL (1.5-3.5); LYMPHOCYTES % (AUTO) 19.1 %; MEAN CORPUSCULAR HEMOGLOBIN 32.3 pg (27.0-31.0); MEAN CORPUSCULAR HGB CONC 32.9 g/dL (32.0-36.0); MEAN CORPUSCULAR VOLUME 98.1 fL (81.0-99.0); MEAN PLATELET VOLUME 9.9 fL (7.9-10.8); MONOCYTES # (AUTO) 0.5 10^3/uL (0.0-1.0); MONOCYTES % (AUTO) 5.6 %; NEUTROPHILS # (AUTO) 6.7 10^3/uL (1.5-6.6); NEUTROPHILS % (AUTO) 73.2 %; PLT - PLATELET COUNT 231 10^3/uL (130-450); RED BLOOD COUNT 4.15 10^6/uL (4.20-5.40); RED CELL DISTRIBUTION WIDTH 13.4 % (12.0-15.0); WHITE BLOOD COUNT 9.2 x10^3/uL (4.8-10.8)
--- NOTE | 2023-03-20 10:25 | XRAY Report ---
PROCEDURE: Forearm LT INDICATIONS: infection TECHNIQUE: 2 views of the forearm were acquired. COMPARISON: None FINDINGS: Bones: No fractures or dislocations. No suspicious bony lesions. Soft tissues: No suspicious soft tissue calcifications or masses. IMPRESSION: No acute fracture. No osseous lesion. If symptoms and/or clinical suspicion for pathology continue, f urther assessment with repeat plain films, or advanced imaging (e.g., CT, MRI, or bone scan) is recom mended for further assessment. Reviewed by: Dallas Khan MD on 03/20/2023 10:24 AM PDT Approved by: Dallas Khan MD on 03/20/2023 10:24 AM PDT Station ID: [id number]
[2023-03-20 10:43] LABS: ALBUMIN 4.1 g/dL (3.2-5.5); ALBUMIN/GLOBULIN RATIO 1.4 (1.0-2.2); BILIRUBIN,TOTAL 0.5 mg/dL (0.2-1.0); CALCIUM 8.3 mg/dL (8.5-10.3); CREATININE 0.6 mg/dL (0.4-1.0); CRP - C-REACTIVE PROTEIN 1.1 mg/dL (0-1.0); TOTAL PROTEIN 7.1 g/dL (6.7-8.2)
--- NOTE | 2023-03-20 12:48 | ED Physician Documentation ---
PD HPI UPPER EXT INJURY - Stated complaint Stated Complaint: REACTION TO BUG BITE - Chief complaint Chief Complaint: Wound - History obtained from History obtained from: Patient - Additonal information Additional information: The patient comes to the emergency department chief complaint of left arm pain, redness, and edema after what she thinks is apparently a bug bite 2 days ago. She states she had been outdoors but had gotten in the car and gone to the store and when she got in the store she felt a sudden sharp, lancinating pain in her forearm. She looked down and it appeared she had been either bitten or stung. She states there is pain in the area for most of the day. By the next day, her arm was somewhat edematous and had a burning itching sensation. Today, however, she states that her arm is very swollen with erythema going up into her upper arm. She denies any drainage. She did not see what bit or stung her. She denies any fevers or chills. No nausea or vomiting. 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: Tubal ligation Cardiovascular: Cardiac catheterization HEENT: Rhinoplasty - Present Medications Home Medications: Ambulatory Orders Medication Instructions Recorded Confirmed Losartan [Cozaar] 100 mg PO DAILY 12/24/15 03/20/23 Metformin HCl 1,000 mg PO BIDWM 12/24/15 03/20/23 Fluoxetine HCl 60 mg PO DAILY 07/04/17 03/20/23 traZODone [Desyrel] 200 mg PO QPM 07/04/17 03/20/23 Atorvastatin [Lipitor] 10 mg PO QPM 11/21/19 03/20/23 Gabapentin 900 mg PO 1400 PRN 11/21/19 03/20/23 Gabapentin 900 mg PO BID 11/21/19 03/20/23 Ibuprofen [Motrin] 800 mg PO DAILY PRN 11/21/19 03/20/23 Dapagliflozin Propanediol [Farxiga] 10 mg PO DAILY 11/25/21 03/20/23 Acetaminophen [Tylenol] 1,000 mg PO BID PRN 01/24/23 03/20/23 Amlodipine Besylate [Norvasc] 10 mg PO DAILY 01/24/23 03/20/23 Buspirone HCl 15 mg PO BID 01/24/23 03/20/23 Cholecalciferol [Vitamin D3] 25 mcg PO DAILY 01/24/23 03/20/23 Cyclobenzaprine HCl 5 mg PO Q8H PRN 01/24/23 01/24/23 Glipizide [Glipizide Xl] 10 mg PO DAILY 01/24/23 03/20/23 Loratadine [Claritin] 10 mg PO DAILY 01/24/23 03/20/23 Multivitamin 1 tab PO DAILY 01/24/23 01/24/23 buPROPion HCL [Bupropion HCl] 150 mg PO DAILY 01/24/23 03/20/23 Albuterol Sulf [Ventolin Hfa 2 puffs INH Q6H PRN #1 each 01/27/23 Inhaler] Amox/Clav 875/125 [Augmentin 1 tablet PO Q12H 6 Days #12 tablet 01/27/23 875/125 Tab] Fluticasone/Salmeterol [Advair Hfa 2 puffs IH BID #1 ea 01/27/23 115-21 Mcg Inhaler] HYDROcod/ACETAM 5/325 [[place] 5/325] 1 tab PO Q6H PRN #5 tab 01/27/23 Lactobacillus Rhamnosus GG 1 cap PO DAILY #6 cap 01/27/23 [Culturelle] guaiFENesin [Mucinex] 600 mg PO BID #12 tab 01/27/23 methylPREDNISolone [Medrol Dose 1 each PO .PACKAGEINSTRUCTIONS 6 01/27/23 Pack] Days #1 each Acyclovir 400 mg PO PRN PRN 03/20/23 03/20/23 Dapagliflozin/Saxagliptin HCl 1 each PO DAILY 03/20/23 03/20/23 [Qtern 10 mg-5 mg Tablet] HYDROcod/ACETAM 5/325 [[place] 5/325] 1 - 2 tablet PO Q6H PRN #20 tablet 03/20/23 Liraglutide [Victoza 2-Tobias] 0.6 mg SUBQ DAILY 03/20/23 03/20/23 Naltrexone HCl 50 mg PO PRN PRN 03/20/23 03/20/23 Sulfamethox/Trimeth 800/160 1 each PO BID #20 tablet 03/20/23 [Bactrim Ds 800/160] cephALEXin [Keflex] 500 mg PO Q6H #40 cap 03/20/23 - Allergies Allergies/Adverse Reactions: Allergies Allergy/AdvReac Type Severity Reaction Status Date / Time No Known Drug Allergies Allergy Verified 03/20/23 09:04 - Social History Does the pt smoke?: No Smoking Status: Never smoker Does the pt drink ETOH?: Yes Does the pt have substance abuse?: Yes - Immunizations Immunizations are current?: Yes - POLST Patient has POLST: No POLST Status: Full Code PD ED PE NORMAL - Vitals Vital signs reviewed: Yes - General General: Alert and oriented X 3, No acute distress, Well developed/nourished - HEENT HEENT: Atraumatic, PERRL, EOMI, Moist mucous membranes - Neck Neck: Supple, no meningeal sign - Cardiac Cardiac: RRR, No murmur, Strong equal pulses - Respiratory Respiratory: No respiratory distress, Clear bilaterally - Derm Derm: Warm and dry, Other (Erythema of varying intensity over left forearm and distal upper arm. Scattered, localized small bullae noted on flexor surface within 5 cm radius. No induration or fluctuance. No necrosis.) - Extremities Extremities: No deformity, Other (Global edema of left forearm and distal upper arm. Mildly limited range of motion secondary to swelling and pain. 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, Normal speech - Psych Psych: Normal mood, Normal affect Results - Vitals Vitals: Vital Signs - 24 hr 03/20/23 03/20/23 03/20/23 09:00 11:04 14:17 Temperature 36.3 C L Heart Rate 78 77 72 Respiratory 16 20 20 Rate Blood Pressure 161/132 H 140/67 H 154/77 H O2 Saturation 98 95 96 Oxygen O2 Source Room air - Labs Labs: Laboratory Tests 03/20/23 03/20/23 03/20/23 10:19 10:19 10:19 WBC 9.2 RBC 4.15 L Hgb 13.4 Hct 40.7 MCV 98.1 MCH 32.3 H MCHC 32.9 RDW 13.4 Plt Count 231 MPV 9.9 Neut # (Auto) 6.7 H Lymph # (Auto) 1.8 [place] # (Auto) 0.5 Eos # (Auto) 0.2 Baso # (Auto) 0.0 Absolute Nucleated RBC 0.00 Nucleated RBC % 0.0 ESR 9 Sodium 137 Potassium 4.0 Chloride 105 Carbon Dioxide 25 Anion Gap 7.0 BUN 13 Creatinine 0.6 Estimated GFR (MDRD) 105 Glucose 189 H Lactic Acid Calcium 8.3 L Total Bilirubin 0.5 AST 19 ALT 20 Alkaline Phosphatase 54 C-Reactive Protein 1.1 H Total Protein 7.1 Albumin 4.1 Globulin 3.0 Albumin/Globulin Ratio 1.4 Lipase 26 03/20/23 10:19 WBC RBC Hgb Hct MCV MCH MCHC RDW Plt Count MPV Neut # (Auto) Lymph # (Auto) [place] # (Auto) Eos # (Auto) Baso # (Auto) Absolute Nucleated RBC Nucleated RBC % ESR Sodium Potassium Chloride Carbon Dioxide Anion Gap BUN Creatinine Estimated GFR (MDRD) Glucose Lactic Acid 0.7 Calcium Total Bilirubin AST ALT Alkaline Phosphatase C-Reactive Protein Total Protein Albumin Globulin Albumin/Globulin Ratio Lipase - Rads (name of study) X-ray left forearm Relevant Findings:: Final report received, See rad report (Negative) PD Medical Decision Making - ED course Complexity details: reviewed results, re-evaluated patient, considered differential, d/w patient ED course: The patient did appear to have a cellulitis, though I suspected this was also partially mixed with just a generalized reaction to the Envenomation. She was worked up with laboratory studies including CBC, ER abdominal panel, lactic acid level, and blood cultures. I did also check ESR and CRP. The patient's CRP was slightly elevated, but white blood cell count, lactic acid level, and ESR were all within normal limits. X-ray was done of the patient's left forearm to look for any subcutaneous emphysema and this was negative. Patient was given IV vancomycin in the emergency department. I discussed with the patient that I would like to see her again tomorrow morning and see how her arm is doing. I have given her prescriptions for Bactrim and Keflex. We have discussed the usual indications for return. Departure - Departure Disposition: 01 Home, Self Care Clinical Impression: Insect bite of forearm with local reaction Qualifiers: Encounter type: initial encounter Laterality: left Qualified Code(s): S50.862A - Insect bite (nonvenomous) of left forearm, initial encounter Cellulitis Qualifiers: Site of cellulitis: extremity Site of cellulitis of extremity: upper extremity Laterality: left Qualified Code(s): L03.114 - Cellulitis of left upper limb Condition: Stable Instructions: ED Infec Skin Cellulitis, ED Bite Sting Insect Local Allergic React Prescriptions: Sulfamethox/Trimeth 800/160 [Bactrim Ds 800/160] 1 each PO BID #20 tablet cephALEXin [Keflex] 500 mg PO Q6H #40 cap HYDROcod/ACETAM 5/325 [[place] 5/325] 1 - 2 tablet PO Q6H PRN #20 tablet PRN Reason: Pain Comments: Your arm is quite swollen today and the appearance of it looks like a combination of a significant inflammatory reaction to the bite or sting, as well is probably some infection of the skin and superficial tissues on top of that. Because of the degree of swelling and the scope of redness, you have received a dose of IV antibiotics here in the emergency department today. X-ray does not show any worrisome findings as far as a rapidly moving, life-threatening infection. Additionally, your blood work looks good with normal white blood cell count, sepsis markers, and inflammatory markers. A prescription for pain medication and antibiotics has been electronically transmitted to the [facility] pharmacy in [place] at your request. I would like you to come back tomorrow morning for recheck.
[2023-03-20] MEDS ORDERED: DEXAMETHASONE 10 MG/ML VIAL IV STA (13:54)
[2023-03-20 14:19] VITALS: BP 154/77
== END 2023-03-20 14:16 | disposition home or self-care (01) ==
LOC: ED 08:56
DX: S50.862A Insect bite (nonvenomous) of left forearm, initial encounter (principal); W57.XXXA Bitten or stung by nonvenomous insect and other nonvenomous arthropods, initial encounter; I10 Essential (primary) hypertension; E11.42 Type 2 diabetes mellitus with diabetic polyneuropathy; Z79.84 Long term (current) use of oral hypoglycemic drugs
CPT/HCPCS: 36415; 73090; 80053; 83605; 83690; 85025; 85651; 86140; 87040; 96365; 96366; 96375; 96376; 99284; J1170; J3370

== ENCOUNTER 2023-03-21 09:07 | Emergency (ER) | payer MEDICAID ==
[2023-03-21 09:21] VITALS: BP 185/83
[2023-03-21] MEDS ORDERED: DEXAMETHASONE 10 MG/ML VIAL IM STA (09:33)
--- OUTSIDE RECORDS SUMMARY | 2023-03-21 09:38 | EXTERNAL MEDICAL SUMMARY RPT | Continuity of Care Document ---
Author Name Unknown Address [address] [place] [address] Phone Organization [facility] Address [address] [place] [address] Phone Care Team Providers Care Message And Delivery Service Pricer Name Role Phone Unavailable Unavailable Unavailable Marycruz [...] [facility] 2023-01-11 00:00 Hypertensive disorder [facility] 2023-01-11 [...] [facility] Procedures date description facility 2023-01-10 00:00 Visit Code Hold [facility] Vital Signs date measurement value units 2023-01-10 [...]
--- NOTE | 2023-03-21 09:47 | ED Physician Documentation ---
PD HPI SKIN - Stated complaint Stated Complaint: LT ARM SWOLLEN, PX - Chief complaint Chief Complaint: Wound - History obtained from History obtained from: Patient - Additional information Additional information: The patient returns to the emergency department today for recheck after being seen yesterday for left upper extremity pain, swelling, and cellulitis after an unknown bite or sting from an insect presumably. The patient states she has not developed any fevers or chills overnight. Her pain is lessened she states that her arm itches more than it did. She denies any progression of the redness or swelling. She states that she does not feel that the swelling has really gone down much but overall, feels little better. 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 Cardiovascular: Cardiac catheterization HEENT: Rhinoplasty - Present Medications Home Medications: Ambulatory Orders Medication Instructions Recorded Confirmed Losartan [Cozaar] 100 mg PO DAILY 12/24/15 03/20/23 Metformin HCl 1,000 mg PO BIDWM 12/24/15 03/20/23 Fluoxetine HCl 60 mg PO DAILY 07/04/17 03/20/23 traZODone [Desyrel] 200 mg PO QPM 07/04/17 03/20/23 Atorvastatin [Lipitor] 10 mg PO QPM 11/21/19 03/20/23 Gabapentin 900 mg PO 1400 PRN 11/21/19 03/20/23 Gabapentin 900 mg PO BID 11/21/19 03/20/23 Ibuprofen [Motrin] 800 mg PO DAILY PRN 11/21/19 03/20/23 Dapagliflozin Propanediol [Farxiga] 10 mg PO DAILY 11/25/21 03/20/23 Acetaminophen [Tylenol] 1,000 mg PO BID PRN 01/24/23 03/20/23 Amlodipine Besylate [Norvasc] 10 mg PO DAILY 01/24/23 03/20/23 Buspirone HCl 15 mg PO BID 01/24/23 03/20/23 Cholecalciferol [Vitamin D3] 25 mcg PO DAILY 01/24/23 03/20/23 Cyclobenzaprine HCl 5 mg PO Q8H PRN 01/24/23 01/24/23 Glipizide [Glipizide Xl] 10 mg PO DAILY 01/24/23 03/20/23 Loratadine [Claritin] 10 mg PO DAILY 01/24/23 03/20/23 Multivitamin 1 tab PO DAILY 01/24/23 01/24/23 buPROPion HCL [Bupropion HCl] 150 mg PO DAILY 01/24/23 03/20/23 Albuterol Sulf [Ventolin Hfa 2 puffs INH Q6H PRN #1 each 01/27/23 Inhaler] Amox/Clav 875/125 [Augmentin 1 tablet PO Q12H 6 Days #12 tablet 01/27/23 875/125 Tab] Fluticasone/Salmeterol [Advair Hfa 2 puffs IH BID #1 ea 01/27/23 115-21 Mcg Inhaler] HYDROcod/ACETAM 5/325 [[place] 5/325] 1 tab PO Q6H PRN #5 tab 01/27/23 Lactobacillus Rhamnosus GG 1 cap PO DAILY #6 cap 01/27/23 [Culturelle] guaiFENesin [Mucinex] 600 mg PO BID #12 tab 01/27/23 methylPREDNISolone [Medrol Dose 1 each PO .PACKAGEINSTRUCTIONS 6 01/27/23 Pack] Days #1 each Acyclovir 400 mg PO PRN PRN 03/20/23 03/20/23 Dapagliflozin/Saxagliptin HCl 1 each PO DAILY 03/20/23 03/20/23 [Qtern 10 mg-5 mg Tablet] HYDROcod/ACETAM 5/325 [[place] 5/325] 1 - 2 tablet PO Q6H PRN #20 tablet 03/20/23 Liraglutide [Victoza 2-Tobias] 0.6 mg SUBQ DAILY 03/20/23 03/20/23 Naltrexone HCl 50 mg PO PRN PRN 03/20/23 03/20/23 Sulfamethox/Trimeth 800/160 1 each PO BID #20 tablet 03/20/23 [Bactrim Ds 800/160] cephALEXin [Keflex] 500 mg PO Q6H #40 cap 03/20/23 predniSONE [Deltasone] 60 mg PO DAILY 3 Days #9 tablet 03/21/23 - Allergies Allergies/Adverse Reactions: Allergies Allergy/AdvReac Type Severity Reaction Status Date / Time No Known Drug Allergies Allergy Verified 03/21/23 09:14 - Social History Does the pt smoke?: No Smoking Status: Never smoker Does the pt drink ETOH?: Yes Does the pt have substance abuse?: Yes - Immunizations Immunizations are current?: Yes - POLST Patient has POLST: No POLST Status: Full Code PD ED PE NORMAL - Vitals Vital signs reviewed: Yes - General General: Alert and oriented X 3, No acute distress, Well developed/nourished - HEENT HEENT: Atraumatic, PERRL, EOMI, Moist mucous membranes - Neck Neck: Supple, no meningeal sign - Cardiac Cardiac: Strong equal pulses - Respiratory Respiratory: No respiratory distress - Derm Derm: Warm and dry, Other (Mild erythema of the left, mainly involving the forearm but extending to the Distal upper arm. Moderate edema. Erythema much improved from yesterday. No fluctuance or induration.) - Extremities Extremities: No deformity - Neuro Neuro: Alert and oriented X 3 - Psych Psych: Normal mood, Normal affect Results - Vitals Vitals: Vital Signs - 24 hr 03/21/23 09:10 Temperature 36.3 C L Heart Rate 88 Respiratory 16 Rate Blood Pressure 185/83 H O2 Saturation 96 Oxygen O2 Source Room air PD Medical Decision Making - ED course Complexity details: reviewed old records, considered differential, d/w patient ED course: Objectively I felt that the patient's arm looked much better although it was still quite edematous. The erythema intensity had gone way down and there is no evidence of progression beyond the border markings which are yesterday. Furthermore on exam I did not find any evidence to suggest an abscess. At this point in time I felt the patient could continue oral antibiotics as an outpatient. I will put her on a short course of steroids for the component of her swelling that is attributable to reaction to the bite. We have discussed the need for return, should the symptoms worsen. Departure - Departure Disposition: 01 Home, Self Care Clinical Impression: Infected insect bite Qualifiers: Encounter type: subsequent encounter Qualified Code(s): W57.XXXD - Bitten or stung by nonvenomous insect and other nonvenomous arthropods, subsequent encounter Cellulitis Qualifiers: Site of cellulitis: extremity Site of cellulitis of extremity: upper extremity Laterality: left Qualified Code(s): L03.114 - Cellulitis of left upper limb Condition: Stable Instructions: ED Infec Skin Cellulitis Prescriptions: predniSONE [Deltasone] 60 mg PO DAILY 3 Days #9 tablet Comments: Your arm actually looks quite a bit better today. It is still swollen and there is still both reaction to the bite and infection, but the redness is much improved and little bit of the swelling as well. At this point, you are free to continue treatment with antibiotics as an outpatient with the 2 antibiotics that were prescribed yesterday. At this point in time, admission to the [facility] is not indicated. However, if you do begin to notice that your arm seems to be getting a lot worse again, you should return to the emergency department immediately for recheck. Some of the swelling and itching is reaction to the bite itself, and a course of steroids has been prescr ibed for the next few days to help counteract this. The prescription for this has been electronically transmitted to the [facility] pharmacy in [place]. Discharge Date/Time: 03/21/23 10:00
== END 2023-03-21 10:00 | disposition home or self-care (01) ==
LOC: ED 09:07
DX: L03.114 Cellulitis of left upper limb (principal)
CPT/HCPCS: 96372; 99283

== ENCOUNTER 2023-08-02 14:53 | Outpatient (CLI) | payer MEDICAID ==
--- NOTE | 2023-08-02 20:02 | XRAY Report ---
PROCEDURE: Shoulder 2 View RT INDICATIONS: RT SHLDR PAIN TECHNIQUE: 3 views of the shoulder were acquired. COMPARISON: None. FINDINGS: Bones: No acute fractures or dislocations. No suspicious bony lesions. Visualized ribs appear inta ct. Moderate acromioclavicular and glenohumeral osteoarthrosis. Soft tissues: No suspicious soft tissue calcifications. The visualized lungs are within normal limi ts. IMPRESSION: Moderate acromioclavicular and glenohumeral osteoarthrosis. No acute osseous abnormality. MRI could b e performed for further evaluation if indicated clinically. Reviewed by: Narciso Huber MD on 08/02/2023 8:01 PM PST Approved by: Narciso Huber MD on 08/02/2023 8:01 PM PST Station ID: [id number]
== END 2023-08-02 14:54 | disposition home or self-care (01) ==
LOC: DI.S 14:53
PROVIDERS: ATTEND Registered Nurse
DX: M19.011 Primary osteoarthritis, right shoulder (principal)

== ENCOUNTER 2023-08-08 08:00 | Outpatient (CLI) | payer MEDICAID ==
--- NOTE | 2023-08-09 17:20 | XRAY Report ---
PROCEDURE: Foot 2 View LT INDICATIONS: PAIN IN LEFT FOOT TECHNIQUE: 2 views of the foot were acquired. COMPARISON: None. FINDINGS: Bones: No fractures or dislocations. Mild osteoarthritic changes are noted in left foot more notabl y involving talonavicular joint. Well-defined plantar and dorsal calcaneal enthesophytes are seen. No suspicious bony lesions. Soft tissues: No suspicious soft tissue calcifications or masses. IMPRESSION: No acute bony abnormality. Mild left foot osteoarthritis. Calcaneal enthesophytes. Reviewed by: Steven Hays MD on 08/09/2023 5:19 PM PST Approved by: Steven Hays MD on 08/09/2023 5:19 PM PST Station ID: [id number]
== END 2023-08-08 23:59 | disposition home or self-care (01) ==
LOC: DI.S 08:00
PROVIDERS: ATTEND Nurse Practitioner
DX: M19.072 Primary osteoarthritis, left ankle and foot (principal); M77.32 Calcaneal spur, left foot

== ENCOUNTER 2023-12-11 11:27 | Outpatient (CLI) | payer MEDICAID ==
--- NOTE | 2023-12-11 12:58 | Ultrasound Report ---
PROCEDURE: Pelvic w/Transvaginal INDICATIONS: POSTMENOPAUSAL BLEEDING TECHNIQUE: Real-time scanning was performed of the pelvic organs, with image documentation. Additional endovagi nal scanning was necessary due to incomplete visualization of the adnexal and endometrial structures by transabdominal scanning. COMPARISON: None. FINDINGS: Uterus: Uterus is anteverted and normal in size at 7.4 x 3.6 x 3.6 cm. The myometrium is heterogene ous. The endometrium measures 4 mm in combined thickness. No fibroids noted Ovaries: The right ovary measures 1.1 x 0.9 x 0.8 cm, with a calculated ovarian volume of 0.4 cc. T he left ovary measures 2.1 x 1.3 x 2.1 cm, with a calculated ovarian volume of 3.1 cc. The ovaries h ave a normal sonographic appearance. Less than 12 follicles can be seen in each ovary. No adnexal m asses are seen. No cystic lesions measuring greater than 3 cm. Other: No pathologic free abdominal or pelvic fluid. IMPRESSION: Unremarkable pelvic ultrasound. Reviewed by: Keenan Gould MD on 12/11/2023 12:57 PM PDT Approved by: Keenan Gould MD on 12/11/2023 12:57 PM PDT Station ID: [id number]
== END 2023-12-11 11:28 | disposition home or self-care (01) ==
LOC: DI 11:27
PROVIDERS: ATTEND Internal Medicine
DX: N95.0 Postmenopausal bleeding (principal)

== ENCOUNTER 2024-01-16 11:33 | Outpatient (CLI) | payer MEDICAID ==
[2024-01-16 12:22] LABS: THYROID STIMULATING HORMONE 0.81 uIU/mL (0.34-5.60)
--- NOTE | 2024-01-16 17:45 | XRAY Report ---
PROCEDURE: Shoulder 2+V RT INDICATIONS: RIGHT SHOULDER PAIN TECHNIQUE: 3 views of the shoulder were acquired. COMPARISON: X-ray shoulder 08/02/2023 FINDINGS: Bones: No fractures or dislocations. No suspicious bony lesions. Visualized ribs appear intact. Moderate acromioclavicular and glenohumeral arthritic change. Minimal paratracheal or osteophytes are present. Soft tissues: No suspicious soft tissue calcifications. The visualized lungs are within normal limi ts. IMPRESSION: Acromioclavicular and glenohumeral arthritic changes stable compared to prior exam. Reviewed by: Katie Guerrero MD on 01/16/2024 5:43 PM PDT Approved by: Katie Guerrero MD on 01/16/2024 5:43 PM PDT Station ID: [id number]
[2024-01-18 15:09] LABS: A/G RATIO 1.2 (0.7-1.7); ALBUMIN 3.9 g/dL (2.9-4.4); ALPHA-1-GLOBULIN 0.3 g/dL (0.0-0.4); ALPHA-2-GLOBULIN 0.8 g/dL (0.4-1.0); BETA GLOBULIN 1.2 g/dL (0.7-1.3); GAMMA GLOBULIN 1.1 g/dL (0.4-1.8); GLOBULIN, TOTAL 3.3 g/dL (2.2-3.9); PROTEIN TOTAL 7.2 g/dL (6.0-8.5)
[2024-01-19 19:07] LABS: ANTINUCLEAR ANTIBODIES IFA Negative (.)
== END 2024-01-16 11:34 | disposition home or self-care (01) ==
LOC: LAB 11:33
PROVIDERS: ATTEND Psychiatry & Neurology Neurology
DX: G62.9 Polyneuropathy, unspecified (principal); M19.011 Primary osteoarthritis, right shoulder
CPT/HCPCS: 36415; 82607; 82746; 84155; 84165; 84439; 84443; 86038

== ENCOUNTER 2024-04-23 07:17 | Outpatient (CLI) | payer MEDICAID ==
[2024-04-23 15:46] LABS: THYROID STIMULATING HORMONE 0.42 uIU/mL (0.34-5.60)
[2024-04-24 06:11] LABS: ESTRADIOL <5.0 pg/mL (.)
== END 2024-04-23 07:18 | disposition home or self-care (01) ==
LOC: LAB.S 07:17
PROVIDERS: ATTEND Internal Medicine
DX: G62.9 Polyneuropathy, unspecified (principal); R45.4 Irritability and anger; F41.9 Anxiety disorder, unspecified; F32.A Depression, unspecified
CPT/HCPCS: 36415; 82670; 83001; 83002; 84144; 84443

== ENCOUNTER 2024-05-02 14:04 | Outpatient (CLI) | payer MEDICAID ==
--- NOTE | 2024-05-02 15:13 | Sleep Patient Instructions ---
Sleep Center Visit Summary - Patient Visit Information Reason for Visit: Annual follow-up - Patient Instructions Additional Instructions: You will continue with CPAP therapy with pressure set at 7-9 cmH2O. A supply prescription will be updated with your DME supplier. We encourage you to continue to try to lose weight. Please follow up with the sleep care office in 1 year. - Clinic Information Contact: [facility] [address] [place] [address] [email or web address] T: [phone]
--- NOTE | 2024-05-02 15:19 | SLEEP CARE CONSULTATION ---
Information from patient questionnaire entered by Alisha Brown. I have reviewed and concur with the information entered by Alisha Brown. This document represents the service I personally performed and the decisions made by me, Kelly Moore ARNP. History of Present Illness Service Date and Time: 05/02/2024 1404 Previous diagnosis: Extremely Severe, Obstructive Sleep Apnea-Hypopnea Syndrome AHI: 100.5 (in 2020) Reason for follow up: annual (LAST SEEN 07/2021) Equipment type: CPAP (ERIN II,) Equipment obtained from: Other ([facility]; getting supplies) Mask style: Nasal pillows Backup mask available: Yes Last cushion change: couple months Prior sleep studies: No Year and Where: 2020 - [facility] Type of Sleep Study: Home sleep study HPI additional information: NELLY SABILLON was diagnosed to have extremely severe, AHI 100.5, obstructive sleep apnea-hypopnea syndrome and returned today for CPAP therapy annual follow- up. Sleep Study - Results Type of Sleep Study: Home sleep study Prior sleep studies: No Year and Where: 2020 - [facility] CPAP Compliance Data - Data Reviewed with Patient Average duration of nightly device use: 4 HRS 51 MINS Compliance rate %: 49.6 (05/02/23-04/30/24; 308/365 days used) Current pressure setting (cmH2O): 7-9 Average residual AHI: 2.7 Central apnea: 1.4 Average large leak: 11.7 L/min (avg) Subjective Missed days of use due to: reports: other (taking mask off after going to sleep) Patient concerns: reports: mask leak noise, condensation in mask/hose, other (SNORING WHILE USING DEVICE). denies: aerophagia, mask discomfort, air blowing in eyes, nasal congestion, dry mouth, nose, throat, epistaxis Observed to snore while using device: Yes (occasional) Current pressure setting perceived as: comfortable On therapy, patient: reports: sleeping better, awakening more refreshed, being more awake and alert during the day, more rested overall. denies: drowsiness while driving Initial [place] Sleepiness Scale score: 7 (in 2020) Current [place] Sleepiness Scale score: 4 (05/02/24) Allergies and Home Medications Known drug allergies: No Drug allergies reviewed: Yes Home medication list reviewed: Yes (no changes) Allergy and home medication list: Allergies No Known Drug Allergies Allergy (Verified 05/02/24 14:39) Review of Systems Review of systems same as previous: Yes (NO CHANGE) Physical Exam Vital signs obtained and entered by: ALISHA Hernandez MA Blood Pressure: 139/74 (RIGHT ARM) Cuff size: long Heart Rate: 70 O2 Saturation: 94 Height: 5 ft 4 in Weight: 235 lb 6.4 oz Weight change since last visit: 6 lb loss Body Mass Index: 40.4 BMI Classification: Morbidly Obese Impression and Plan 1. Obstructive Sleep Apnea-Hypopnea Syndrome, extremely severe, with fair treatment compliance and good apnea control. On CPAP therapy, the patient has better sleep quality and is more rested overall. Patient has significant improvement of her sleep apnea and is satisfied with current CPAP therapy. Patient has been told by her daughter that she snores occasionally. She is using a nasal cushion and may be oral venting. I advised using a chin strap to reduce oral venting. She voiced understanding. Patient's apnea severity and rationale for treatment to reduce apnea, improve sleep quality and reduce cardiovascular and cerebrovascular events was reviewed. I also reviewed the benefit of consistent device use of CPAP for hypertension, diabetes, gastric reflux, depression/anxiety, attention deficit and PTSD. 2. Obesity, unspecified. Currently patients BMI is 40.4. Obesity increases the risk of apnea, CPAP pressure requirements and overall health risks especially cardiovascular and diabetes. Thus patient is advised to continue to try to lose weight. * Continue auto CPAP pressure at 7-9 cmH2O * Update supply prescription. * Notify me if snoring with mask or feeling that the pressure is too much or too little * Attempt to lose weight * Call this office if any problems using CPAP * Return for follow up in 12 months, or sooner if concerns arise Counseling Topics: Spare mask, Weight loss health impact Prescriptions: Device supplies Follow up with Sleep Care in: 1 year Visit Type: In Office Time Spent with Patient (minutes): 23 Provider Statement: I spent 100% of the Face to Face Visit with the patient with greater than 50% spent counseling the patient and coordination of care.
[2024-05-02 15:21] VITALS: BP 139/74; O2SAT 94
== END 2024-05-02 14:05 | disposition home or self-care (01) ==
LOC: SC 14:04
PROVIDERS: ATTEND Nurse Practitioner Family
DX: G47.33 Obstructive sleep apnea (adult) (pediatric) (principal); E66.01 Morbid (severe) obesity due to excess calories; Z68.41 Body mass index [BMI] 40.0-44.9, adult
CPT/HCPCS: 99212; 99213